=== PATIENT | male | born 1935 | race Caucasian/White ===

== ENCOUNTER 2017-03-08 16:52 | Inpatient (IN) | payer MEDICARE ==
[2017-03-08 17:58] LABS: BASO % 0.4 % (0.0-1.0); EOS # 0.1 10^3/uL (0.0-0.50); HEMATOCRIT 46.1 % (42.0-52.0); HEMOGLOBIN 14.4 g/dl (14.0-18.0); IMMATURE GRANULOCYTE % 0.1 % (0-0); LYMPH % 28.1 % (24.0-44.0); MEAN CORPUSCULAR HEMOGLOBIN 30.4 pg (27.0-33.0); MEAN CORPUSCULAR HGB CONC 31.2 g/dl (32.0-36.5); MEAN CORPUSCULAR VOLUME 97.3 fl (80.0-96.0); MONO # 1.1 10^3/uL (0.0-0.8); MONO % 15.2 % (0.0-5.0); NEUTROPHILS # 3.9 10^3/uL (1.8-7.7); NEUTROPHILS % 55.2 % (36.0-66.0); PLATELET COUNT, AUTOMATED 158 10^3/uL (150-450); RED BLOOD COUNT 4.74 10^6/uL (4.30-6.10); RED CELL DISTRIBUTION WIDTH 11.9 % (11.5-14.5); WHITE BLOOD COUNT 7.2 10^3/uL (4.0-10.0)
[2017-03-08 18:21] LABS: ANION GAP 6 MEQ/L (8-16); BLOOD UREA NITROGEN 31 MG/DL (7-18); CALCIUM LEVEL 8.4 MG/DL (8.8-10.2); CARBON DIOXIDE LEVEL 38 MEQ/L (21-32); CHLORIDE LEVEL 95 MEQ/L (98-107); GLOMERULAR FILTRATION RATE 51.7 (>35); GLUCOSE, FASTING 90 MG/DL (83-110); POTASSIUM SERUM 3.9 MEQ/L (3.5-5.1); SODIUM LEVEL 139 MEQ/L (136-145)
[2017-03-08 18:25] LABS: LACTIC ACID SEPSIS PROTOCOL 1.5 MMOL/L (0.4-2.0)
[2017-03-08 18:30] LABS: ALBUMIN 3.1 GM/DL (3.2-5.2); ALBUMIN/GLOBULIN RATIO 0.79 (1.00-1.93); ALKALINE PHOSPHATASE 130 U/L (45-117); ALT/SGPT 57 U/L (12-78); AST/SGOT 40 U/L (7-37); BILIRUBIN,DIRECT 0.2 MG/DL (0.0-0.2); BILIRUBIN,TOTAL 0.6 MG/DL (0.2-1.0); NT-PRO BNP 1137 PG/ML (<450)
[2017-03-08] MEDS: NS 500 ML IV (19:00)
[2017-03-08] MEDS: methylPREDNISolone INJ 125 MG/2 ML VIAL (J2930) IV ×2 (19:02→23:47)
[2017-03-08 19:45] LABS: ABG BASE EXCESS 11.3 (-2.0-2.0); ABG HCO3 37.6 MEQ/L (22.0-26.0); ABG O2 SATURATION 96.8 % (95.0-99.0); ABG PARTIAL PRESSURE CO2 55.7 mmHg (35.0-45.0); ABG PARTIAL PRESSURE O2 84.8 mmHg (75.0-100.0); ABG STANDARD HCO3 35.1 MEQ/L (22.0-26.0); ABG TOTAL CO2 39.3 MEQ/L (23.0-31.0); ABG pH (ARTERIAL) 7.447 UNITS (7.350-7.450)
[2017-03-08] MEDS: IPRATROPIUM 0.5MG/ALBUTEROL 2.5MG INH SOL UD 3ML (DUONEB)(J7620) NEB ×2 (19:45→23:41)
[2017-03-08] MEDS: CARVedilol 3.125 MG TAB PO (21:36)
[2017-03-08] MEDS: METOPROLOL 5 MG/5 ML VIAL IV (21:48)
[2017-03-08] MEDS ORDERED: IPRATROPIUM 0.5MG/ALBUTEROL 2.5MG INH SOL UD 3ML (DUONEB)(J7620) NEB (22:45)
[2017-03-08] MEDS ORDERED: ACETAMINOPHEN TAB 650MG DOSE (2X325MG) PO (22:45)
[2017-03-08] MEDS ORDERED: ONDANSETRON 4MG/2ML VIAL (J2405) IV (22:45)
[2017-03-08] MEDS: DOCUSATE SODIUM 100 MG CAP PO (23:00)
[2017-03-08] MEDS: HEPARIN SOD (PORCINE) 5000 UNITS/ML VIAL SC (23:00)
[2017-03-08 23:28] LABS: CK-MB VALUE MASS 3.2 NG/ML (0.0-3.6); CPK CREATINE PHOSPHOKINASE 60 U/L (39-308); MB/CK RELATIVE INDEX 5.33 (< OR =4); TROPONIN I 0.02 NG/ML (< 0.10)
[2017-03-08] MEDS: FORMOTEROL FUMARATE 20 MCG/2 ML INHALATION SOLUTION (PERFOROMIST) INH (23:41)
[2017-03-08] MEDS: VITAMIN D 1,000 INTERNATIONAL UNITS TABLET PO (23:51)
[2017-03-08] MEDS: ROSUVASTATIN 10 MG TAB (CRESTOR) PO (23:51)
[2017-03-08] MEDS: GABAPENTIN 300 MG CAP PO (23:51)
[2017-03-08] MEDS: LOSARTAN 25 MG TAB PO (23:51)
[2017-03-09] MEDS: AZITHROMYCIN INJ 500 MG, VIAL MATE ADAPTER 1 EACH in D5W 250 ML IV
[2017-03-09] MEDS: FORMOTEROL FUMARATE 20 MCG/2 ML INHALATION SOLUTION (PERFOROMIST) INH ×3 (00:14→23:14)
[2017-03-09] MEDS: HEPARIN SOD (PORCINE) 5000 UNITS/ML VIAL SC ×3 (05:16→21:44)
[2017-03-09] MEDS: methylPREDNISolone INJ 125 MG/2 ML VIAL (J2930) IV ×2 (05:16→18:05)
[2017-03-09] MEDS: LEVOTHYROXINE 150MCG TABLET (0.15MG) PO (05:16)
[2017-03-09 05:23] LABS: HEMATOCRIT 41.1 % (42.0-52.0); MEAN CORPUSCULAR HEMOGLOBIN 30.2 pg (27.0-33.0); MEAN CORPUSCULAR HGB CONC 31.6 g/dl (32.0-36.5); MEAN CORPUSCULAR VOLUME 95.6 fl (80.0-96.0); PLATELET COUNT, AUTOMATED 138 10^3/uL (150-450); WHITE BLOOD COUNT 4.1 10^3/uL (4.0-10.0)
[2017-03-09 05:52] LABS: ANION GAP 7 MEQ/L (8-16); BLOOD UREA NITROGEN 36 MG/DL (7-18); CALCIUM LEVEL 8.7 MG/DL (8.8-10.2); CARBON DIOXIDE LEVEL 36 MEQ/L (21-32); CHLORIDE LEVEL 100 MEQ/L (98-107); CPK CREATINE PHOSPHOKINASE 47 U/L (39-308); CREATININE FOR GFR 1.27 MG/DL (0.70-1.30); GLOMERULAR FILTRATION RATE 57.8 (>35); GLUCOSE, FASTING 218 MG/DL (83-110); MB/CK RELATIVE INDEX 6.38 (< OR =4); POTASSIUM SERUM 4.3 MEQ/L (3.5-5.1); SODIUM LEVEL 143 MEQ/L (136-145); TROPONIN I 0.02 NG/ML (< 0.10)
[2017-03-09] MEDS: IPRATROPIUM 0.5MG/ALBUTEROL 2.5MG INH SOL UD 3ML (DUONEB)(J7620) NEB ×4 (08:42→23:14)
[2017-03-09] MEDS: CARVedilol 12.5 MG TAB PO (09:00)
[2017-03-09] MEDS: GABAPENTIN 300 MG CAP PO ×2 (09:14→21:43)
[2017-03-09] MEDS: DOCUSATE SODIUM 100 MG CAP PO ×2 (09:14→21:00)
[2017-03-09] MEDS: OMEGA-3 1050MG CAPSULE PO (09:14)
[2017-03-09] MEDS: MULTIVITAMINS/MINERALS THERAP 1 TAB PO (09:14)
[2017-03-09] MEDS: ASPIRIN 81 MG ENTERIC TAB PO (09:14)
[2017-03-09] MEDS: VITAMIN D 1,000 INTERNATIONAL UNITS TABLET PO ×2 (09:19→21:43)
[2017-03-09] MEDS: POTASSIUM CHLORIDE 10 MEQ SR TABLET PO (09:19)
[2017-03-09] MEDS: VITAMIN E 400 INTERNATIONAL UNITS CAP PO (09:20)
[2017-03-09] MEDS: FUROSEMIDE 100 MG/10 ML VIAL (J1940) IV ×2 (09:20→18:06)
[2017-03-09] MEDS: SYMBICORT 160/4.5MCG INHALER 6GM INH ×2 (09:35→20:23)
[2017-03-09] MEDS: TIOTROPIUM INHALER/CAPSULE (SPIRIVA) INH (09:35)
[2017-03-09 15:22] LABS: CK-MB VALUE MASS 4.5 NG/ML (0.0-3.6); CPK CREATINE PHOSPHOKINASE 72 U/L (39-308); MB/CK RELATIVE INDEX 6.25 (< OR =4); TROPONIN I < 0.02 NG/ML (< 0.10)
[2017-03-09] MEDS: METOPROLOL TART 25 MG TABLET PO (16:39)
[2017-03-09] MEDS: ROSUVASTATIN 10 MG TAB (CRESTOR) PO (18:05)
[2017-03-09] MEDS: LOSARTAN 25 MG TAB PO (21:00)
[2017-03-10] MEDS: AZITHROMYCIN INJ 500 MG, VIAL MATE ADAPTER 1 EACH in D5W 250 ML IV ×2 (00:47→23:53)
[2017-03-10] MEDS: METOPROLOL TART 25 MG TABLET PO ×3 (05:56)
[2017-03-10] MEDS: HEPARIN SOD (PORCINE) 5000 UNITS/ML VIAL SC ×3 (05:56→21:10)
[2017-03-10] MEDS: LEVOTHYROXINE 150MCG TABLET (0.15MG) PO (05:56)
[2017-03-10] MEDS: methylPREDNISolone INJ 125 MG/2 ML VIAL (J2930) IV (05:56)
[2017-03-10 06:10] LABS: HEMATOCRIT 45.7 % (42.0-52.0); HEMOGLOBIN 14.4 g/dl (14.0-18.0); MEAN CORPUSCULAR HEMOGLOBIN 30.3 pg (27.0-33.0); MEAN CORPUSCULAR HGB CONC 31.5 g/dl (32.0-36.5); MEAN CORPUSCULAR VOLUME 96.2 fl (80.0-96.0); PLATELET COUNT, AUTOMATED 201 10^3/uL (150-450); RED BLOOD COUNT 4.75 10^6/uL (4.30-6.10); WHITE BLOOD COUNT 19.6 10^3/uL (4.0-10.0)
[2017-03-10 06:38] LABS: ANION GAP 7 MEQ/L (8-16); BLOOD UREA NITROGEN 44 MG/DL (7-18); CALCIUM LEVEL 9.6 MG/DL (8.8-10.2); CARBON DIOXIDE LEVEL 40 MEQ/L (21-32); CHLORIDE LEVEL 96 MEQ/L (98-107); CREATININE FOR GFR 1.59 MG/DL (0.70-1.30); GLOMERULAR FILTRATION RATE 44.6 (>35); GLUCOSE, FASTING 120 MG/DL (70-100); POTASSIUM SERUM 3.9 MEQ/L (3.5-5.1); SODIUM LEVEL 143 MEQ/L (136-145)
[2017-03-10] MEDS: TIOTROPIUM INHALER/CAPSULE (SPIRIVA) INH (07:05)
[2017-03-10] MEDS: IPRATROPIUM 0.5MG/ALBUTEROL 2.5MG INH SOL UD 3ML (DUONEB)(J7620) NEB ×3 (07:05→23:41)
[2017-03-10] MEDS: FORMOTEROL FUMARATE 20 MCG/2 ML INHALATION SOLUTION (PERFOROMIST) INH ×2 (07:05→23:40)
[2017-03-10] MEDS: SYMBICORT 160/4.5MCG INHALER 6GM INH ×2 (07:05→21:08)
[2017-03-10] MEDS: ASPIRIN 81 MG ENTERIC TAB PO (08:44)
[2017-03-10] MEDS: OMEGA-3 1050MG CAPSULE PO (08:44)
[2017-03-10] MEDS: GABAPENTIN 300 MG CAP PO ×2 (08:44→21:10)
[2017-03-10] MEDS: DOCUSATE SODIUM 100 MG CAP PO ×2 (08:44→21:10)
[2017-03-10] MEDS: FUROSEMIDE 100 MG/10 ML VIAL (J1940) IV (08:45)
[2017-03-10] MEDS: VITAMIN E 400 INTERNATIONAL UNITS CAP PO (08:45)
[2017-03-10] MEDS: POTASSIUM CHLORIDE 10 MEQ SR TABLET PO (08:45)
[2017-03-10] MEDS: MULTIVITAMINS/MINERALS THERAP 1 TAB PO (08:45)
[2017-03-10] MEDS: VITAMIN D 1,000 INTERNATIONAL UNITS TABLET PO ×2 (08:45→21:10)
[2017-03-10] MEDS: METOPROLOL TART 12.5 MG PER 1/2 TAB PO ×3 (12:13→23:53)
[2017-03-10] MEDS: methylPREDNISolone INJ 40 MG/1 ML VIAL (J2920) IV (17:09)
[2017-03-10] MEDS: ROSUVASTATIN 10 MG TAB (CRESTOR) PO (17:09)
[2017-03-11] MEDS ORDERED: SLF 3 ML SYR IV (00:30)
[2017-03-11] MEDS: LEVOTHYROXINE 150MCG TABLET (0.15MG) PO (05:16)
[2017-03-11] MEDS: METOPROLOL TART 12.5 MG PER 1/2 TAB PO ×3 (05:17→18:27)
[2017-03-11] MEDS: HEPARIN SOD (PORCINE) 5000 UNITS/ML VIAL SC ×3 (05:17→21:15)
[2017-03-11] MEDS: SLF 3 ML SYR IV ×3 (05:17→21:15)
[2017-03-11] MEDS: methylPREDNISolone INJ 40 MG/1 ML VIAL (J2920) IV (05:17)
[2017-03-11 07:07] LABS: HEMATOCRIT 48.2 % (42.0-52.0); HEMOGLOBIN 15.1 g/dl (14.0-18.0); MEAN CORPUSCULAR HEMOGLOBIN 30.6 pg (27.0-33.0); MEAN CORPUSCULAR HGB CONC 31.3 g/dl (32.0-36.5); MEAN CORPUSCULAR VOLUME 97.6 fl (80.0-96.0); PLATELET COUNT, AUTOMATED 225 10^3/uL (150-450); RED BLOOD COUNT 4.94 10^6/uL (4.30-6.10); RED CELL DISTRIBUTION WIDTH 12.2 % (11.5-14.5)
[2017-03-11 07:24] LABS: ANION GAP 8 MEQ/L (8-16); BLOOD UREA NITROGEN 52 MG/DL (7-18); CALCIUM LEVEL 9.1 MG/DL (8.8-10.2); CARBON DIOXIDE LEVEL 33 MEQ/L (21-32); CHLORIDE LEVEL 100 MEQ/L (98-107); CREATININE FOR GFR 1.76 MG/DL (0.70-1.30); GLOMERULAR FILTRATION RATE 39.7 (>35); GLUCOSE, FASTING 130 MG/DL (70-100); POTASSIUM SERUM 3.6 MEQ/L (3.5-5.1); SODIUM LEVEL 141 MEQ/L (136-145)
[2017-03-11] MEDS: IPRATROPIUM 0.5MG/ALBUTEROL 2.5MG INH SOL UD 3ML (DUONEB)(J7620) NEB ×2 (08:00→16:00)
[2017-03-11] MEDS: POTASSIUM CHLORIDE 10 MEQ SR TABLET PO ×2 (08:02→09:10)
[2017-03-11] MEDS: TIOTROPIUM INHALER/CAPSULE (SPIRIVA) INH (08:19)
[2017-03-11] MEDS: SYMBICORT 160/4.5MCG INHALER 6GM INH ×2 (08:19→21:50)
[2017-03-11] MEDS: FORMOTEROL FUMARATE 20 MCG/2 ML INHALATION SOLUTION (PERFOROMIST) INH ×2 (08:20→21:00)
[2017-03-11] MEDS: DOCUSATE SODIUM 100 MG CAP PO ×2 (09:10→21:15)
[2017-03-11] MEDS: OMEGA-3 1050MG CAPSULE PO (09:10)
[2017-03-11] MEDS: VITAMIN E 400 INTERNATIONAL UNITS CAP PO (09:10)
[2017-03-11] MEDS: ASPIRIN 81 MG ENTERIC TAB PO (09:10)
[2017-03-11] MEDS: VITAMIN D 1,000 INTERNATIONAL UNITS TABLET PO ×2 (09:10→21:15)
[2017-03-11] MEDS: MULTIVITAMINS/MINERALS THERAP 1 TAB PO (09:10)
[2017-03-11] MEDS: predniSONE 20 MG TAB PO (09:10)
[2017-03-11] MEDS: GABAPENTIN 300 MG CAP PO ×2 (09:10→21:15)
[2017-03-11 10:01] LABS: OSMOLALITY SERUM 323 MOSM/KG (280-301)
[2017-03-11 12:07] LABS: OSMOLALITY URINE 707 MOSM/KG (500-800)
[2017-03-11 12:54] LABS: SODIUM,RANDOM URINE < 10 MEQ/L
[2017-03-11] MEDS: SODIUM CHLORIDE 0.9% 1000 ML IV (14:50)
[2017-03-11 16:55] LABS: PARTIAL THROMBOPLASTIN TIME 26.7 SECONDS (26.8-37.9)
[2017-03-11 17:10] LABS: INR 1.08; PROTHROMBIN TIME 14.2 SECONDS (12.4-14.5)
[2017-03-11] MEDS: ROSUVASTATIN 10 MG TAB (CRESTOR) PO (18:27)
[2017-03-12] MEDS: IPRATROPIUM 0.5MG/ALBUTEROL 2.5MG INH SOL UD 3ML (DUONEB)(J7620) NEB ×4 (00:24→23:12)
[2017-03-12] MEDS: METOPROLOL TART 12.5 MG PER 1/2 TAB PO ×5 (00:44→23:17)
[2017-03-12] MEDS: SLF 3 ML SYR IV ×3 (06:00→20:25)
[2017-03-12 06:18] LABS: HEMATOCRIT 41.5 % (42.0-52.0); MEAN CORPUSCULAR HEMOGLOBIN 30.5 pg (27.0-33.0); MEAN CORPUSCULAR HGB CONC 31.3 g/dl (32.0-36.5); MEAN CORPUSCULAR VOLUME 97.4 fl (80.0-96.0); PLATELET COUNT, AUTOMATED 178 10^3/uL (150-450); RED BLOOD COUNT 4.26 10^6/uL (4.30-6.10); RED CELL DISTRIBUTION WIDTH 12.3 % (11.5-14.5); WHITE BLOOD COUNT 16.4 10^3/uL (4.0-10.0)
[2017-03-12] MEDS: LEVOTHYROXINE 150MCG TABLET (0.15MG) PO (06:26)
[2017-03-12] MEDS: HEPARIN SOD (PORCINE) 5000 UNITS/ML VIAL SC ×3 (06:27→20:24)
[2017-03-12 06:43] LABS: ANION GAP 2 MEQ/L (8-16); BLOOD UREA NITROGEN 46 MG/DL (7-18); CALCIUM LEVEL 8.8 MG/DL (8.8-10.2); CARBON DIOXIDE LEVEL 39 MEQ/L (21-32); CHLORIDE LEVEL 105 MEQ/L (98-107); CREATININE FOR GFR 1.51 MG/DL (0.70-1.30); GLOMERULAR FILTRATION RATE 47.3 (>35); GLUCOSE, FASTING 148 MG/DL (70-100); POTASSIUM SERUM 5.1 MEQ/L (3.5-5.1); SODIUM LEVEL 146 MEQ/L (136-145)
[2017-03-12] MEDS: TIOTROPIUM INHALER/CAPSULE (SPIRIVA) INH (08:27)
[2017-03-12] MEDS: SYMBICORT 160/4.5MCG INHALER 6GM INH ×2 (08:28→21:16)
[2017-03-12] MEDS: FORMOTEROL FUMARATE 20 MCG/2 ML INHALATION SOLUTION (PERFOROMIST) INH ×2 (08:29→21:00)
[2017-03-12] MEDS: POTASSIUM CHLORIDE 10 MEQ SR TABLET PO (09:00)
[2017-03-12] MEDS: GABAPENTIN 300 MG CAP PO ×2 (09:06→20:24)
[2017-03-12] MEDS: AZITHROMYCIN 250 MG TAB PO (09:06)
[2017-03-12] MEDS: VITAMIN D 1,000 INTERNATIONAL UNITS TABLET PO ×2 (09:06→20:24)
[2017-03-12] MEDS: MULTIVITAMINS/MINERALS THERAP 1 TAB PO (09:06)
[2017-03-12] MEDS: ASPIRIN 81 MG ENTERIC TAB PO (09:06)
[2017-03-12] MEDS: predniSONE 20 MG TAB PO (09:06)
[2017-03-12] MEDS: OMEGA-3 1050MG CAPSULE PO (09:08)
[2017-03-12] MEDS: DOCUSATE SODIUM 100 MG CAP PO ×2 (09:08→20:24)
[2017-03-12] MEDS: VITAMIN E 400 INTERNATIONAL UNITS CAP PO (09:08)
[2017-03-12] MEDS: D5W/0.45% SODIUM CHLORIDE 1,000 ML IV (10:47)
[2017-03-12] MEDS ORDERED: MIRALAX *UNIT DOSE* 17GM PACKET PO (16:30)
[2017-03-12] MEDS ORDERED: SODIUM CHLORIDE NASAL 0.65% SPRAY BTL (OCEAN) (16:30)
[2017-03-12] MEDS: DIGOXIN 0.125 MG TAB PO (17:01)
[2017-03-12] MEDS: ROSUVASTATIN 10 MG TAB (CRESTOR) PO (18:18)
[2017-03-12] MEDS: DIGOXIN 0.25 MG TAB PO (23:17)
[2017-03-13] MEDS: METOPROLOL TART 12.5 MG PER 1/2 TAB PO ×3 (05:06→17:44)
[2017-03-13] MEDS: LEVOTHYROXINE 150MCG TABLET (0.15MG) PO (05:06)
[2017-03-13] MEDS: DIGOXIN 0.125 MG TAB PO (05:06)
[2017-03-13] MEDS: HEPARIN SOD (PORCINE) 5000 UNITS/ML VIAL SC ×3 (05:07→21:19)
[2017-03-13] MEDS: SLF 3 ML SYR IV ×3 (05:07→21:20)
[2017-03-13 06:02] LABS: HEMATOCRIT 40.9 % (42.0-52.0); HEMOGLOBIN 12.6 g/dl (14.0-18.0); MEAN CORPUSCULAR HEMOGLOBIN 30.4 pg (27.0-33.0); MEAN CORPUSCULAR HGB CONC 30.8 g/dl (32.0-36.5); MEAN CORPUSCULAR VOLUME 98.8 fl (80.0-96.0); PLATELET COUNT, AUTOMATED 158 10^3/uL (150-450); RED BLOOD COUNT 4.14 10^6/uL (4.30-6.10); RED CELL DISTRIBUTION WIDTH 12.1 % (11.5-14.5); WHITE BLOOD COUNT 11.1 10^3/uL (4.0-10.0)
[2017-03-13 06:31] LABS: ANION GAP 1 MEQ/L (8-16); BLOOD UREA NITROGEN 38 MG/DL (7-18); CALCIUM LEVEL 8.7 MG/DL (8.8-10.2); CARBON DIOXIDE LEVEL 38 MEQ/L (21-32); CHLORIDE LEVEL 103 MEQ/L (98-107); CREATININE FOR GFR 1.37 MG/DL (0.70-1.30); DIGOXIN LEVEL 1.8 NG/ML (0.5-2.0); GLUCOSE, FASTING 138 MG/DL (70-100); POTASSIUM SERUM 4.5 MEQ/L (3.5-5.1); SODIUM LEVEL 142 MEQ/L (136-145)
[2017-03-13] MEDS: SYMBICORT 160/4.5MCG INHALER 6GM INH ×2 (07:16→21:58)
[2017-03-13] MEDS: IPRATROPIUM 0.5MG/ALBUTEROL 2.5MG INH SOL UD 3ML (DUONEB)(J7620) NEB ×3 (07:16→23:57)
[2017-03-13] MEDS: FORMOTEROL FUMARATE 20 MCG/2 ML INHALATION SOLUTION (PERFOROMIST) INH ×2 (07:16→20:08)
[2017-03-13] MEDS: TIOTROPIUM INHALER/CAPSULE (SPIRIVA) INH (07:16)
[2017-03-13] MEDS: DOCUSATE SODIUM 100 MG CAP PO ×2 (07:53→21:19)
[2017-03-13] MEDS: MULTIVITAMINS/MINERALS THERAP 1 TAB PO (07:53)
[2017-03-13] MEDS: predniSONE 20 MG TAB PO (07:53)
[2017-03-13] MEDS: OMEGA-3 1050MG CAPSULE PO (07:53)
[2017-03-13] MEDS: GABAPENTIN 300 MG CAP PO ×2 (07:53→21:19)
[2017-03-13] MEDS: AZITHROMYCIN 250 MG TAB PO (07:53)
[2017-03-13] MEDS: ASPIRIN 81 MG ENTERIC TAB PO (07:53)
[2017-03-13] MEDS: VITAMIN D 1,000 INTERNATIONAL UNITS TABLET PO ×2 (07:54→21:19)
[2017-03-13] MEDS: VITAMIN E 400 INTERNATIONAL UNITS CAP PO (07:54)
[2017-03-13] MEDS: DOXYCYCLINE HYCLATE 100 MG TAB PO ×2 (13:38→21:19)
[2017-03-13] MEDS: ROSUVASTATIN 10 MG TAB (CRESTOR) PO (17:44)
[2017-03-14] MEDS: METOPROLOL TART 12.5 MG PER 1/2 TAB PO ×3 (00:15→13:35)
[2017-03-14 05:58] LABS: HEMATOCRIT 43.1 % (42.0-52.0); HEMOGLOBIN 13.3 g/dl (14.0-18.0); MEAN CORPUSCULAR HGB CONC 30.9 g/dl (32.0-36.5); MEAN CORPUSCULAR VOLUME 97.1 fl (80.0-96.0); PLATELET COUNT, AUTOMATED 195 10^3/uL (150-450); RED BLOOD COUNT 4.44 10^6/uL (4.30-6.10); WHITE BLOOD COUNT 13.4 10^3/uL (4.0-10.0)
[2017-03-14] MEDS: SLF 3 ML SYR IV (06:00)
[2017-03-14 06:33] LABS: ANION GAP 4 MEQ/L (8-16); BLOOD UREA NITROGEN 34 MG/DL (7-18); CALCIUM LEVEL 9.2 MG/DL (8.8-10.2); CARBON DIOXIDE LEVEL 37 MEQ/L (21-32); CHLORIDE LEVEL 102 MEQ/L (98-107); CREATININE FOR GFR 1.32 MG/DL (0.70-1.30); DIGOXIN LEVEL 0.9 NG/ML (0.5-2.0); GLOMERULAR FILTRATION RATE 55.3 (>35); GLUCOSE, FASTING 105 MG/DL (70-100); POTASSIUM SERUM 3.9 MEQ/L (3.5-5.1); SODIUM LEVEL 143 MEQ/L (136-145)
[2017-03-14] MEDS: HEPARIN SOD (PORCINE) 5000 UNITS/ML VIAL SC (06:55)
[2017-03-14] MEDS: LEVOTHYROXINE 150MCG TABLET (0.15MG) PO (06:55)
[2017-03-14] MEDS: IPRATROPIUM 0.5MG/ALBUTEROL 2.5MG INH SOL UD 3ML (DUONEB)(J7620) NEB (07:49)
[2017-03-14] MEDS: SYMBICORT 160/4.5MCG INHALER 6GM INH (07:49)
[2017-03-14] MEDS: TIOTROPIUM INHALER/CAPSULE (SPIRIVA) INH (07:49)
[2017-03-14] MEDS ORDERED: DIGOXIN 0.25 MG TAB PO (09:00)
[2017-03-14] MEDS: predniSONE 20 MG TAB PO (10:03)
[2017-03-14] MEDS: VITAMIN E 400 INTERNATIONAL UNITS CAP PO (10:03)
[2017-03-14] MEDS: VITAMIN D 1,000 INTERNATIONAL UNITS TABLET PO (10:03)
[2017-03-14] MEDS: DOCUSATE SODIUM 100 MG CAP PO (10:03)
[2017-03-14] MEDS: MULTIVITAMINS/MINERALS THERAP 1 TAB PO (10:03)
[2017-03-14] MEDS: GABAPENTIN 300 MG CAP PO (10:04)
[2017-03-14] MEDS: DOXYCYCLINE HYCLATE 100 MG TAB PO (10:04)
[2017-03-14] MEDS: DIGOXIN 0.125 MG TAB PO (10:04)
[2017-03-14] MEDS: ASPIRIN 81 MG ENTERIC TAB PO (10:04)
[2017-03-14] MEDS: OMEGA-3 1050MG CAPSULE PO (10:04)
[2017-03-14] MEDS: FORMOTEROL FUMARATE 20 MCG/2 ML INHALATION SOLUTION (PERFOROMIST) INH (11:09)
== END 2017-03-14 13:42 | disposition home or self-care (01) | DRG 308 ==
LOC: M PCU 03-09 00:42 → M MSPAV 03-13 10:32 → M ED 16:52 → M ED INP 22:34
DX: I48.91 Unspecified atrial fibrillation (principal); I50.33 Acute on chronic diastolic (congestive) heart failure; J44.1 Chronic obstructive pulmonary disease with (acute) exacerbation; J96.11 Chronic respiratory failure with hypoxia; I13.0 Hypertensive heart and chronic kidney disease with heart failure and stage 1 through stage 4 chronic kidney disease, or unspecified chronic kidney disease; I25.10 Atherosclerotic heart disease of native coronary artery without angina pectoris; I25.2 Old myocardial infarction; E78.5 Hyperlipidemia, unspecified; N18.3 Chronic kidney disease, stage 3 (moderate); I27.20 Pulmonary hypertension, unspecified; Z99.81 Dependence on supplemental oxygen; Z95.5 Presence of coronary angioplasty implant and graft; Z87.891 Personal history of nicotine dependence; Z79.82 Long term (current) use of aspirin; Z79.899 Other long term (current) drug therapy

== ENCOUNTER 2018-04-15 16:09 | Emergency (ER) | payer MEDICARE ==
[~2018-04-15] VITALS: Ht 170.2 cm; Wt 76.8 kg
[~2018-04-15 16:09] MED LIST: ALBU17IN2 INH; ASPI81TA45 PO; CARV12.5 PO; CIPR-249 PO; CORE12.5 PO; CORE6.25 PO; CRES10TA32 PO; DIGO0.12 PO; DOXY100T PO; FISH100049 PO; FURO40TA2 PO; GABA-843 PO; GABA-845 PO; K-TA10TA PO; LASI20TA3 PO; LEVA750T7 PO; LEVO175T2 PO; LEVO25TA5 PO; LOSA25TA14 PO; METO1TAB33 PO; METO1TAB7 PO; MULTTAB50 PO; PERF20NE2 INH; PLAV1TAB2 PO; PRED10TA PO; PRED20TA PO; PRED20TAB PO; SPIR1CAP INH; SYMB16INH INH; SYNT150T PO; VIAG100T PO; VITA-122 PO; VITA200016 PO; VITA400C7 PO; VITMTA PO
--- NOTE | 2018-04-15 17:01 | REP ---
RIGHT KNEE, FIVE VIEWS: HISTORY: Knee pain. There is no acute fracture or dislocation. There is mild narrowing of the medial and minimal narrowing of the lateral knee joint space and patellofemoral joint space is normal in appearance. Chondrocalcinosis is present. IMPRESSION: Degenerative change as described above. Electronically Signed by Roger Castillo MD 04/15/2018 05:04 P
[2018-04-15] MEDS ORDERED: ACETAMINOPHEN 325 MG TAB PO ONE (20:30)
[2018-04-15 20:51] VITALS: BP 136/77
== END 2018-04-15 20:53 | disposition home or self-care (01) ==
LOC: M ED 16:09
DX: S83.91XA Sprain of unspecified site of right knee, initial encounter (principal); X50.1XXA Overexertion from prolonged static or awkward postures, initial encounter; Y92.39 Other specified sports and athletic area as the place of occurrence of the external cause; Y93.54 Activity, bowling; I11.0 Hypertensive heart disease with heart failure; I50.9 Heart failure, unspecified; I25.10 Atherosclerotic heart disease of native coronary artery without angina pectoris; I25.2 Old myocardial infarction; E78.00 Pure hypercholesterolemia, unspecified; J44.9 Chronic obstructive pulmonary disease, unspecified; E03.9 Hypothyroidism, unspecified; Z95.5 Presence of coronary angioplasty implant and graft; Z87.891 Personal history of nicotine dependence; Z79.899 Other long term (current) drug therapy; Z79.51 Long term (current) use of inhaled steroids; Z79.82 Long term (current) use of aspirin

== ENCOUNTER 2019-05-20 18:50 | Inpatient (IN) | payer MEDICARE ==
[~2019-05-20] VITALS: Ht 167.6 cm; Wt 72.0 kg
[~2019-05-20 18:50] MED LIST changes: +CRES10TA PO; -CRES10TA32 PO; -DIGO0.12 PO; +DIGO0.123 PO; +PRED-351 PO; -PRED10TA PO
[2019-05-20] MEDS ORDERED: COMBIVENT RESPIMAT 100-20MCG INHALER 4GM INH ONE (19:15)
[2019-05-20] MEDS ORDERED: methylPREDNISolone INJ 125 MG/2 ML VIAL (J2930) IV ONE (19:15)
[2019-05-20 19:21] LABS: BASO % 0.2 % (0.0-1.0); EOS % 0.1 % (0.0-3.0); HEMATOCRIT 47.2 % (42.0-52.0); HEMOGLOBIN 14.7 g/dl (13.5-17.5); LYMPH # 1.6 10^3/uL (1.5-5.0); LYMPH % 8.7 % (24.0-44.0); MEAN CORPUSCULAR HGB CONC 31.1 g/dl (32.0-36.5); MEAN CORPUSCULAR VOLUME 99.6 fl (80.0-96.0); MONO # 1.3 10^3/uL (0.0-0.8); MONO % 6.8 % (0.0-5.0); NEUTROPHILS # 15.4 10^3/uL (1.5-8.5); NEUTROPHILS % 83.8 % (36.0-66.0); PLATELET COUNT, AUTOMATED 224 10^3/uL (150-450); RED BLOOD COUNT 4.74 10^6/uL (4.30-6.10); WHITE BLOOD COUNT 18.3 10^3/uL (4.0-10.0)
[2019-05-20 19:32] LABS: INR 1.22; PROTHROMBIN TIME 15.2 SECONDS (11.8-14.0)
[2019-05-20 19:39] LABS: ABG BASE EXCESS 5.8 (-2.0-2.0); ABG HCO3 30.9 MEQ/L (22.0-26.0); ABG O2 SATURATION 99.1 % (95.0-99.0); ABG PARTIAL PRESSURE CO2 46.7 mmHg (35.0-45.0); ABG PARTIAL PRESSURE O2 145.4 mmHg (75.0-100.0); ABG STANDARD HCO3 29.7 MEQ/L (22.0-26.0); ABG TOTAL CO2 32.4 MEQ/L (23.0-31.0); ABG pH (ARTERIAL) 7.439 UNITS (7.350-7.450)
--- NOTE | 2019-05-20 19:53 | REP ---
CHEST, PORTABLE: AP portable view of the chest is performed and compared to prior study of 03/11/2017. There is diffuse interstitial fibrosis. There may be some superimposed patchy infiltrate in the left lung base. Focal somewhat rounded opacity in the right apex could represent focal infiltrate, fibroatelectasis or a mass. Approximate diameter is about 4 cm maximally. The heart is not enlarged. Mediastinal silhouette appears unremarkable. Multiple sternal wires and mediastinal clips are present. Electronically Signed by Mikey Shannon MD 05/20/2019 11:31 P
[2019-05-20 20:16] LABS: ALBUMIN 3.3 GM/DL (3.2-5.2); BILIRUBIN,DIRECT 0.5 MG/DL (0.0-0.2); CALCIUM LEVEL 9.4 MG/DL (8.8-10.2); CK-MB VALUE MASS 2.4 NG/ML (<3.6); CREATININE FOR GFR 1.32 MG/DL (0.70-1.30); DIGOXIN LEVEL 0.7 NG/ML (0.5-2.0); MB/CK RELATIVE INDEX 3.48 (< OR =4); POTASSIUM SERUM 4.4 MEQ/L (3.5-5.1); TOTAL PROTEIN 6.8 GM/DL (6.4-8.2); TROPONIN I 0.03 NG/ML (< 0.10)
[2019-05-20] MEDS ORDERED: cefTRIAXone SOD 1 GM in D5W MINI-BAG PLUS 50 ML IV ONE (20:30)
[2019-05-20] MEDS ORDERED: AZITHROMYCIN 250MG TABLET PO ONE (20:30)
[2019-05-20] MEDS ORDERED: ISOVUE-370 76% 100ML VIAL (Q9967) As Ordered ONE (21:00)
--- NOTE | 2019-05-20 21:12 | HPEPDOC ---
[facility] Medical History & Physical Date of Admission May 20, 2019 Date of Service: May 20, 2019 Other Provider Roger Monterroso MD Attending Physician: COY JOHANSEN MD History and Physical TIME OF SERVICE: 10:21 PM CHIEF COMPLAINT: Shortness of breath HISTORY OF PRESENT ILLNESS: This is an 83-year-old male who presents with complaints of shortness of breath for 2 days that is made with exertion which she attributes to his COPD acting up. He was also having a productive cough, and sharp left-sided 8 out of 10, nonradiating chest pain. He denies having fevers or chills, but admits to losing weight recently. Per Dr. Carcamo chest x-ray showed a right apical infiltrate versus mass, the EKG showed atrial fibrillation/flutter and RBBB with a heart rate of 116, while the respiratory panel was negative. CTA of the chest and COVID-19 are pending. He received solumedrol, duonebs, ceftriaxone and azithromycin. 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 HOME MEDICATIONS: Please see below. PHYSICAL EXAMINATION: Vital Signs Date Time Temp Pulse Resp B/P (MAP) Pulse Ox O2 Delivery O2 Flow Rate FiO2 05/20/19 18:51 98.3 64 24 129/65 (86) 78 Room Air 2.0 GEN: well nourished / well developed/ NAD INTEGUMENT: he doesn't have facial plethora HEENT:NCAT / lips are not cyanotic / he doesn't have pursed lip breathing / trachea midline / NC in place / maximal laryngeal height is <4cm / mucus membranes moist and pink CVS: RRR/ distant heart sounds / radial and dorsalis pedis pulses intact / he has trace extremity edema LUNGS: there is no nasal flaring / able to speak full sentences without stopping to take a breath / coughing / he is not using accessory muscles / despite deminished breath sounds inspiratory crackles are audible at the lung bases MSK/EXTREMITIES: he has finger nail clubbing NEURO: CN 2-12 are grossly intact / speech is not dysarthric PSYCH: alert and oriented to person place and time/ able to understand and follow all commands LABORATORY DATA: Prothrombin Time 15.2H, Prothromb Time International Ratio 1.22, Anion Gap 3L, Glomerular Filtration Rate 55.0, Lactic Acid Level 1.4, Calcium Level 9.4, Total Bilirubin 1.0, Direct Bilirubin 0.5H, Aspartate Amino Transf (AST/SGOT) 38H, Alanine Aminotransferase (ALT/SGPT) 42, Alkaline Phosphatase 198H, Total Creatine Kinase 69, Creatine Kinase MB 2.4, Creatine Kinase MB Relative Index 3.48, Troponin I 0.03, Total Protein 6.8, Albumin 3.3, Albumin/Globulin Ratio 0.94L, Lipase 53L, Digoxin Level 0.7 05/20/19 19:29: Blood Gas Bicarbonate Standard 29.7H, Arterial Blood pH 7.439, Arterial Blood Partial Pressure CO2 46.7H, Arterial Blood Partial Pressure O2 145.4H, Arterial Blood Total CO2 32.4H, Arterial Blood HCO3 30.9H, Arterial Blood Base Excess 5.8H, Arterial Blood Oxygen Saturation 99.1H IMAGING: Chest x-ray " There is diffuse interstitial fibrosis. There may be some superimposed patchy infiltrate in the left lung base. Focal somewhat rounded opacity in the right apex could represent focal infiltrate, fibroatelectasis or a mass. Approximate diameter is about 4 cm maximally. The heart is not enlarged. Mediastinal silhouette appears unremarkable. Multiple sternal wires and mediastinal clips are present." CTA chest "IMPRESSION: 1. Findings consistent with chronic interstitial lung disease with subpleural bullous or cystic changes. 2. Minimal infiltrate or consolidation in the lingula which may reflect overlying pneumonia. 3. Status post sternotomy with CABG and mild cardiomegaly. 4. Otherwise negative CTA chest. No pulmonary embolism is identified. " MICROBIOLOGY: 05/20/19 Coronavirus COVID-19 PCR (CECI), Received Pending 05/20/19 Respiratory Panel (PCR) - Final, Complete 05/20/19 Blood Culture, Received Pending 05/20/19 Blood Culture, Received Pending ASSESSMENT: Mr. Ku is an 83-year-old with a history of COPD, chronic oxygen-dependent respiratory failure, pulmonary hypertension, A. fib, chronic HTN, TIA, CAD/CABG, CKD 3, and hypothyroidism was admitted for dyspnea, likely due to acute COPD. PLAN: 1. Acute COPD likely 2/2 CAP with Chronic O2 Dependent Respiratory Failure O2 sats wnl with baseline of 2L of O2 Initial troponin, & ABG were unremarkable CTA chest was negative for PE but confirmed the presence of PNA PORT/PSI Score to predict risk of mortality in pt w CAP = 124 Points = class IV risk = hospitalization recommended Shorr Score to identify pts at risk for MRSA PNA = medium risk for MRSA DRIP Score to predict risk of drug resistant CAP and need for extended spectrum abx = 1 point = low = no need for broad spectrum abx Plan: admit to medical floor/ supplemental O2 / continuous pulse oximetry / aspiration precautions / COPD diet / Dunebs Q6H, Albuterol Q1HP, Prednisone + PPI / c/w ceftriaxone and azithromycin pending sputum cx, blood culture MRSA, Strep Pneumo, Legionella, COVID-19, procalcitonin, CRP, LDH and ferritin / Tessalon Pearls / Acetaminophen PRN for fever / hold home inhalers except Spiriva 2. Possible Sepsis 2/2 CAP SIRS criteria include HR >90 WBC >12 RR > 20 His lactic acid is within normal limits and clinically he doesn't appear toxic, but his BP was as low as 88/53 in the ER. He has nondiabetic hyperglycemia QSofa Score = 1 = not high risk He is full code Plan: telemetry /c/w abx / NS @60ml/H / f/u pancx / Acetaminophen PRN for fever / target MAP 65 to 70 / f/u Is and Os with target UOP of atleast 0.5 ml/kg/H / target serum glucose 140-180 while acutely ill 3. Rapid Atrial Fibrillation May be due to albuterol as his HR was 64 on arrival but increased to 116 He declined anticoagulation in the past Plan: telemetry / resume Digoxin 4. Mild Hypotension He has a hx of Chronic HTN Plan: hold tamsulosin bc his BP is low / the day time team may resume his Metoprolol in the morning and dc the IVF if his BP has improved 5. Moderate (group 3?) Pulm HTN. This may be the cause of his bilateral lower extremity edema - Plan: treat COPD / resume furosemide in the morning 6. hx of TIA / CAD/CABG - Plan: ASA & rosuvastatin 7. Hypothyroidism - Plan: levothyroxine 8. CKD 3 - Plan: f/u BMP & avoid NSAIDs or other nephrotoxins DVT PROPHYLAXIS: lovenox DISPOSITION: likely home after more than 2 midnight's stay Home Medications Scheduled Albuterol Sulfate (Proventil Hfa) 6.7 Gm Hfa.aer.ad, 2 PUFF INH QID for wheezing Aspirin (Aspirin EC) 81 Mg Tablet.dr, 81 MG PO DAILY Budesonide/Formoterol (Symbicort 160-4.5 Mcg Inhaler) 60 Puff/Inhaler Aers, 2 PUFF INH BID Digoxin (Digoxin) 125 Mcg Tablet, 125 MCG PO DAILY Ergocalciferol (Vitamin D2) (Vitamin D2) 2,000 Unit Tablet, 2,000 UNIT PO DAILY Formoterol Fumarate (Perforomist) 20 Mcg/2 Ml Neb, 1 INH INH BID Furosemide (Furosemide) 20 Mg Tablet, 20 MG PO DAILY Gabapentin (Gabapentin) 300 Mg Cap, 300 MG PO DAILY PATIENT STATES HE ONLY TAKES ONE IN THE MORNING. RX IS FOR BID Levothyroxine Sodium (Levothyroxine Sodium) 125 Mcg Tablet, 125 MCG PO DAILY Metoprolol Succinate (Metoprolol Succinate) 50 Mg Tab.er.24h, 50 MG PO QHS Metoprolol Succinate (Metoprolol Succinate) 100 Mg Tab.er.24h, 100 MG PO DAILY Multivitamins (Thera M Plus Tablet) 1 Tab Tab, 1 TAB PO DAILY [place]-3 Fatty Acids/Fish Oil (Fish Oil 1,000 mg Capsule) 1 Each Capsule, 1,000 MG PO DAILY Potassium Chloride (K-Tab ER) 10 Meq Tab, 20 MEQ PO DAILY Rosuvastatin Calcium (Crestor) 10 Mg Tab, 40 MG PO DAILY Tamsulosin HCl (Flomax) 0.4 Mg Capsule, 0.4 MG PO DAILY Tiotropium [place] (Spiriva) 18 Mcg Cap, 1 PUFF INH DAILY Vitamin E (Vitamin E) 400 Unit Capsule, 400 UNIT PO DAILY Allergies Coded Allergies: No Known Allergies (Unverified , 04/23/14) A-FIB/CHADSVASC A-FIB History Current/History of A-Fib/PAF?: Yes Current PO Anticoag Therapy: No Treatment Reason Anticoagulant not given: Patient refusal COY JOHANSEN MD May 20, 2019 21:12
[2019-05-20] MEDS ORDERED: ACETAMINOPHEN TAB 650MG DOSE (2X325MG) PO PRN (21:15)
[2019-05-20] MEDS ORDERED: ALBUTEROL 90 MCG/ACT 8GM HFA INHALER INH PRN (21:15)
[2019-05-20] MEDS ORDERED: MAALOX 30 ML SUSP *UDC PO PRN (21:15)
[2019-05-20 21:50] LABS: MAGNESIUM LEVEL 1.9 MG/DL (1.8-2.4); THYROID STIMULATING HORMONE 0.244 uIU/ML (0.358-3.740)
--- NOTE | 2019-05-20 22:01 | REPVR ---
PROCEDURE INFORMATION: Exam: CT Angiography Chest With Contrast Exam date and time: 05/20/2019 9:36 PM Age: 83 years old Clinical indication: Shortness of breath; Chest pain; Additional info: Chest pain, SOB TECHNIQUE: Imaging protocol: Computed tomographic angiography of the chest with intravenous contrast. 3D rendering: MIP and/or 3D reconstructed images were created by the technologist. Radiation optimization: All CT scans at this facility use at least one of these dose optimization techniques: automated exposure control; mA and/or kV adjustment per patient size (includes targeted exams where dose is matched to clinical indication); or iterative reconstruction. Contrast material: ISOVUE 370; Contrast volume: 75 ml; Contrast route: IV; COMPARISON: GA PORTABLE CHEST X-RAY 05/20/2019 7:12 PM FINDINGS: Pulmonary arteries: The main pulmonary artery measures 23 mm. No pulmonary embolism is identified. Aorta: The ascending thoracic aorta measures 30 mm. Lungs: Diffuse interstitial coarsening, greatest in subpleural regions with mild subpleural bullous or cystic changes which are greatest in the upper lobes. There is minimal infiltrate or consolidation in the lingula. Pleural space: Unremarkable. No pneumothorax. No pleural effusion. Heart: Status post sternotomy and CABG. The left atrium measures 5.1 cm in its AP dimension. Lymph nodes: Unremarkable. No enlarged lymph nodes. Bones/joints: Unremarkable. No acute fracture. Soft tissues: Unremarkable. IMPRESSION: 1. Findings consistent with chronic interstitial lung disease with subpleural bullous or cystic changes. 2. Minimal infiltrate or consolidation in the lingula which may reflect overlying pneumonia. 3. Status post sternotomy with CABG and mild cardiomegaly. 4. Otherwise negative CTA chest. No pulmonary embolism is identified. Electronically signed by: Ulises Ferrara On 05/20/2019 22:00:43 PM
[2019-05-20] MEDS ORDERED: METO1TAB33 PO (22:23)
[2019-05-20] MEDS ORDERED: ASPI81TA26 PO (22:23)
[2019-05-20] MEDS ORDERED: FISH1000 PO (22:23)
[2019-05-20] MEDS ORDERED: DIGO0.123 PO (22:23)
[2019-05-20] MEDS ORDERED: METO1TAB7 PO (22:23)
[2019-05-20] MEDS ORDERED: ASPI81CH33 PO (22:23)
[2019-05-20] MEDS ORDERED: VITA200028 PO (22:23)
[2019-05-20] MEDS ORDERED: VITA400C53 PO (22:23)
[2019-05-20] MEDS ORDERED: PROV108A INH (22:25)
[2019-05-20] MEDS ORDERED: LEVO125T4 PO (22:34)
[2019-05-20] MEDS ORDERED: FURO20TA2 PO (22:34)
[2019-05-20] MEDS ORDERED: FLOM0.4C39 PO (22:34)
[2019-05-20 23:08] VITALS: BP 108/68
[2019-05-20] MEDS: COMBIVENT RESPIMAT 100-20MCG INHALER 4GM INH SCH (23:50)
[2019-05-21 01:51] LABS: C REACTIVE PROTEIN QUANTITATIV 7.42 MG/DL (0.00-0.30); FREE T3 2.1 PG/ML (2.2-4.0); FREE T4 1.3 NG/DL (0.76-1.46); TROPONIN I 0.03 NG/ML (< 0.10)
[2019-05-21] MEDS ORDERED: BENZONATATE 100 MG CAP PO PRN (02:15)
[2019-05-21 04:00] VITALS: BP 102/58
[2019-05-21] MEDS: NS 1,000 ML IV SCH ×2 (04:16→20:41)
[2019-05-21 05:33] LABS: HEMATOCRIT 47.4 % (42.0-52.0); HEMOGLOBIN 14.4 g/dl (13.5-17.5); MEAN CORPUSCULAR HEMOGLOBIN 31.2 pg (27.0-33.0); MEAN CORPUSCULAR HGB CONC 30.4 g/dl (32.0-36.5); MEAN CORPUSCULAR VOLUME 102.8 fl (80.0-96.0); PLATELET COUNT, AUTOMATED 189 10^3/uL (150-450); RED BLOOD COUNT 4.61 10^6/uL (4.30-6.10); WHITE BLOOD COUNT 10.3 10^3/uL (4.0-10.0)
[2019-05-21 06:06] LABS: BLOOD UREA NITROGEN 27 MG/DL (7-18); CALCIUM LEVEL 9.2 MG/DL (8.8-10.2); CARBON DIOXIDE LEVEL 35 MEQ/L (21-32); CHLORIDE LEVEL 102 MEQ/L (98-107); CREATININE FOR GFR 1.26 MG/DL (0.70-1.30); GLUCOSE, FASTING 243 MG/DL (70-100); POTASSIUM SERUM 4.2 MEQ/L (3.5-5.1); SODIUM LEVEL 140 MEQ/L (136-145); TROPONIN I < 0.02 NG/ML (< 0.10)
[2019-05-21] MEDS: LEVOTHYROXINE 125MCG TABLET (0.125MG) PO SCH (06:36)
[2019-05-21] MEDS: COMBIVENT RESPIMAT 100-20MCG INHALER 4GM INH SCH ×3 (07:48→20:36)
[2019-05-21] MEDS: TIOTROPIUM INHALER/CAPSULE (SPIRIVA) INH SCH (07:48)
--- NOTE | 2019-05-21 07:50 | ECGEPIP ---
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
[2019-05-21 08:00] VITALS: BP 110/52
[2019-05-21] MEDS: PANTOPRAZOLE 40MG TAB (PROTONIX) PO SCH (08:40)
[2019-05-21] MEDS: ASPIRIN 81 MG ENTERIC TAB PO SCH (08:40)
[2019-05-21] MEDS: TAMSULOSIN 0.4 MG CAP PO SCH (08:40)
[2019-05-21] MEDS: predniSONE 20 MG TAB PO SCH (08:41)
[2019-05-21] MEDS: POTASSIUM CHLORIDE 10 MEQ SR TABLET PO SCH (08:41)
[2019-05-21] MEDS: FUROSEMIDE 20 MG TAB PO SCH (08:41)
[2019-05-21] MEDS: ROSUVASTATIN 10 MG TAB (CRESTOR) PO SCH (08:41)
[2019-05-21] MEDS: GABAPENTIN 300 MG CAP PO SCH (08:41)
[2019-05-21] MEDS: DIGOXIN 0.125 MG TAB PO SCH ×2 (08:42→17:05)
[2019-05-21] MEDS: ENOXAPARIN 40 MG/0.4 ML SYRINGE (J1650) SC SCH (08:42)
[2019-05-21] MEDS: cefTRIAXone SOD 2 GM in D5W MINI-BAG PLUS 50 ML IV SCH (08:42)
--- NOTE | 2019-05-21 09:17 | IPNPDOC ---
Subjective Date Seen The patient was seen on 05/21/19. Subjective Chief Complaint/HPI seen and examined at bedside, doing well and currently on NC 2L, near baseline. General: Reports: Normal Appetite; Denies: Chills, Night Sweats, Fatigue, Malaise Constitutional: Denies: Chills, Fever, Night Sweats Eyes: Denies: Pain, Vision change ENT: Denies: Head Aches, Ear Pain, Dysphagia Skin: Denies: Rash, Lesions, Breakdown Pulmonary: Reports: Dyspnea, Cough Cardiovascular: Denies: Chest Pain, Palpitations, Orthopnea, Paroxysmal Noc. Dyspnea, Lt Headedness Gastrointestinal: Denies: Nausea, Vomiting, Abdominal Pain, Diarrhea, Constipation Genitourinary: Denies: Dysuria, Frequency, Incontinence, Retention Hematologic: Denies: Bruising, Bleeding Excessively Musculoskeletal: Denies: Neck Pain, Back Pain, Joint Pain, Muscle Pain, Spasms Neurological: Denies: Weakness, Numbness, Change in speech, Confusion Psych: Reports: Mood Normal; Denies: Depression, Memory Issues Objective Physical Examination General Exam: Positive: Alert, No Acute Distress Eye Exam: Positive: PERRLA, Conjunctiva & lids normal, EOMI; Negative: Sclera icteric ENT Exam: Positive: Atraumatic, Mucous membr. moist/pink, Pharynx Normal Neck Exam: Positive: Supple; Negative: JVD, thyromegaly Chest Exam: Positive: Diminished Heart Exam: Positive: Rate Normal, Regular Rhythm, Normal S1, Normal S2; Negative: Murmurs, Rubs Telemetry: Positive: Atrial fibrillation Abdomen Exam: Positive: Normal bowel sounds, Soft; Negative: Tenderness, Hepatospenomegaly Male Exam: Positive: Normal Genital Exam Extremity Exam: Positive: Normal pulses; Negative: Clubbing, Cyanosis, Edema Skin Exam: Positive: Nl turgor and temperature; Negative: Rash, Breakdown Neuro Exam: Positive: Normal Gait, Normal Speech, Cranial Nerves 3-12 NL, Reflexes 2+ Psych Exam: Positive: Mental status NL, Mood NL, Oriented x 3 Assessment /Plan Assessment 1. Acute COPD likely 2/2 CAP with Chronic O2 Dependent Respiratory Failure O2 sats wnl with baseline of 2L of O2 Initial troponin, & ABG were unremarkable CTA chest was negative for PE but confirmed the presence of PNA PORT/PSI Score to predict risk of mortality in pt w CAP = 124 Points = class IV risk = hospitalization recommended Shorr Score to identify pts at risk for MRSA PNA = medium risk for MRSA DRIP Score to predict risk of drug resistant CAP and need for extended spectrum abx = 1 point = low = no need for broad spectrum abx Plan: admit to medical floor/ supplemental O2 / continuous pulse oximetry / aspiration precautions / COPD diet / Dunebs Q6H, Albuterol Q1HP, Prednisone + PPI / c/w ceftriaxone and azithromycin pending sputum cx, blood culture MRSA, Strep Pneumo, Legionella, COVID-19, procalcitonin, CRP, LDH and ferritin / Tessalon Pearls / Acetaminophen PRN for fever / hold home inhalers except Spiriva. 05/20 - continue management as above. 05/21 - on NC 2L (baseline), on steroids/duonebs. 2. Possible Sepsis 2/2 CAP SIRS criteria include HR >90 WBC >12 RR > 20 His lactic acid is within normal limits and clinically he doesn't appear toxic, but his BP was as low as 88/53 in the ER. He has nondiabetic hyperglycemia QSofa Score = 1 = not high risk He is full code Plan: telemetry /c/w abx / NS @60ml/H / f/u pancx / Acetaminophen PRN for fever / target MAP 65 to 70 / f/u Is and Os with target UOP of atleast 0.5 ml/kg/H / target serum glucose 140-180 while acutely ill 3. Rapid Atrial Fibrillation May be due to albuterol as his HR was 64 on arrival but increased to 116 He declined anticoagulation in the past Plan: telemetry / resume Digoxin 05/21: still tachycardic, will tx with IV cardizem, monitor. 4. Mild Hypotension He has a hx of Chronic HTN Plan: hold tamsulosin bc his BP is low / the day time team may resume his Metoprolol in the morning and dc the IVF if his BP has improved 5. Moderate (group 3?) Pulm HTN. This may be the cause of his bilateral lower extremity edema - Plan: treat COPD / resume furosemide in the morning 6. hx of TIA / CAD/CABG - Plan: ASA & rosuvastatin 7. Hypothyroidism - Plan: levothyroxine 8. CKD 3 - Plan: f/u BMP & avoid NSAIDs or other nephrotoxins DVT PROPHYLAXIS: lovenox DISPOSITION: likely home after more than 2 midnight's stay Plan/VTE VTE Prophylaxis Ordered?: Yes VS, I&O, 24H, Fishbone Vital Signs/I&O Vital Signs Date Time Temp Pulse Resp B/P (MAP) Pulse Ox O2 Delivery O2 Flow Rate FiO2 05/21/19 08:42 80 05/21/19 08:00 95.0 18 110/52 (71) Nasal Cannula 2.0 05/21/19 04:00 96 I&O- Last 24 Hours up to 6 AM 05/21/19 06:00 Intake Total 350 ml Balance 350 ml Laboratory Data 24H LABS Laboratory Tests 2 05/20/19 19:11: Immature Granulocyte % (Auto) 0.4, Neutrophils (%) (Auto) 83.8H, Lymphocytes (%) (Auto) 8.7L, Monocytes (%) (Auto) 6.8H, Eosinophils (%) (Auto) 0.1, Basophils (%) (Auto) 0.2, Neutrophils # (Auto) 15.4H, Lymphocytes # (Auto) 1.6, Monocytes # (Auto) 1.3H, Eosinophils # (Auto) 0.0, Basophils # (Auto) 0.0, Nucleated Red Blood Cells % (auto) 0.0, Prothrombin Time 15.2H, Prothromb Time International Ratio 1.22, Anion Gap 3L, Glomerular Filtration Rate 55.0, Lactic Acid Level 1.4, Calcium Level 9.4, Magnesium Level 1.9, Total Bilirubin 1.0, Direct Bilirubin 0.5H, Aspartate Amino Transf (AST/SGOT) 38H, Alanine Aminotransferase (ALT/SGPT) 42, Alkaline Phosphatase 198H, Total Creatine Kinase 69, Creatine Kinase MB 2.4, Creatine Kinase MB Relative Index 3.48, Troponin I 0.03, Total Protein 6.8, Albumin 3.3, Albumin/Globulin Ratio 0.94L, Lipase 53L, Thyroid Stimulating Hormone (TSH) 0.244L, Digoxin Level 0.7 05/20/19 19:29: Blood Gas Bicarbonate Standard 29.7H, Arterial Blood pH 7.439, Arterial Blood Partial Pressure CO2 46.7H, Arterial Blood Partial Pressure O2 145.4H, Arterial Blood Total CO2 32.4H, Arterial Blood HCO3 30.9H, Arterial Blood Base Excess 5.8H, Arterial Blood Oxygen Saturation 99.1H 05/21/19 01:02: Troponin I 0.03, Ferritin 81, Lactate Dehydrogenase 199, C-Reactive Protein, Quantitative 7.42H, Free Thyroxine 1.30, Free Triiodothyronine 2.1L 05/21/19 04:30: 05/21/19 04:53: Nucleated Red Blood Cells % (auto) 0.0, Anion Gap 3L, Glomerular Filtration Rate 58.0, Calcium Level 9.2, Troponin I < 0.02# CBC/BMP Laboratory Tests 05/20/19 19:11 05/21/19 04:53 Microbiology Microbiology 05/20/19 Coronavirus COVID-19 PCR (CECI), Received Pending 05/20/19 Respiratory Panel (PCR) - Final, Complete 05/20/19 Blood Culture, Received Pending 05/20/19 Blood Culture, Received Pending JAMES SCRUGGS MD May 21, 2019 09:17
[2019-05-21 12:00] VITALS: BP 102/62
[2019-05-21 13:32] VITALS: BP 100/48
[2019-05-21 15:56] VITALS: BP 112/64
[2019-05-21] MEDS ORDERED: METOPROLOL SUCC *XL* 12.5MG PER 1/2 TAB (TopROL *XL*) PO ONE (19:30)
[2019-05-21 20:00] VITALS: BP 118/68
[2019-05-21] MEDS: AZITHROMYCIN INJ 500 MG, VIAL MATE ADAPTER 1 EACH in D5W 250 ML IV SCH (20:42)
[2019-05-22] VITALS (7 sets, daily range): BP systolic 112–156; BP diastolic 72–90
[2019-05-22] MEDS: COMBIVENT RESPIMAT 100-20MCG INHALER 4GM INH SCH ×4 (00:44→19:36)
[2019-05-22] MEDS: LEVOTHYROXINE 125MCG TABLET (0.125MG) PO SCH (05:06)
[2019-05-22 05:53] LABS: HEMATOCRIT 43.2 % (42.0-52.0); HEMOGLOBIN 13.6 g/dl (13.5-17.5); MEAN CORPUSCULAR HEMOGLOBIN 31.8 pg (27.0-33.0); MEAN CORPUSCULAR HGB CONC 31.5 g/dl (32.0-36.5); MEAN CORPUSCULAR VOLUME 100.9 fl (80.0-96.0); PLATELET COUNT, AUTOMATED 202 10^3/uL (150-450); RED BLOOD COUNT 4.28 10^6/uL (4.30-6.10); WHITE BLOOD COUNT 18.4 10^3/uL (4.0-10.0)
[2019-05-22 06:16] LABS: CALCIUM LEVEL 9.2 MG/DL (8.8-10.2); CREATININE FOR GFR 1.24 MG/DL (0.70-1.30); GLOMERULAR FILTRATION RATE 59.1 (>35); POTASSIUM SERUM 4.7 MEQ/L (3.5-5.1)
[2019-05-22] MEDS: TIOTROPIUM INHALER/CAPSULE (SPIRIVA) INH SCH (07:35)
--- NOTE | 2019-05-22 09:14 | ECGEPIP ---
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
[2019-05-22] MEDS: ENOXAPARIN 40 MG/0.4 ML SYRINGE (J1650) SC SCH (09:18)
[2019-05-22] MEDS: PANTOPRAZOLE 40MG TAB (PROTONIX) PO SCH (09:18)
[2019-05-22] MEDS: cefTRIAXone SOD 2 GM in D5W MINI-BAG PLUS 50 ML IV SCH (09:18)
[2019-05-22] MEDS: TAMSULOSIN 0.4 MG CAP PO SCH (09:19)
[2019-05-22] MEDS: METOPROLOL SUCC (TopROL XL) 100MG *XL* TAB PO SCH (09:19)
[2019-05-22] MEDS: predniSONE 20 MG TAB PO SCH (09:19)
[2019-05-22] MEDS: FUROSEMIDE 20 MG TAB PO SCH (09:20)
[2019-05-22] MEDS: DIGOXIN 0.125 MG TAB PO SCH (09:20)
[2019-05-22] MEDS: ASPIRIN 81 MG ENTERIC TAB PO SCH (09:20)
[2019-05-22] MEDS: POTASSIUM CHLORIDE 10 MEQ SR TABLET PO SCH (09:20)
[2019-05-22] MEDS: GABAPENTIN 300 MG CAP PO SCH (09:20)
[2019-05-22] MEDS: ROSUVASTATIN 10 MG TAB (CRESTOR) PO SCH (09:21)
[2019-05-22] MEDS ORDERED: METOPROLOL SUCC *XL* 25MG TAB (TopROL *XL*) PO ONE (18:00)
[2019-05-22] MEDS: AZITHROMYCIN INJ 500 MG, VIAL MATE ADAPTER 1 EACH in D5W 250 ML IV SCH (22:07)
[2019-05-23] VITALS: BP 127/79
[2019-05-23 04:00] VITALS: BP 120/72
[2019-05-23] MEDS: COMBIVENT RESPIMAT 100-20MCG INHALER 4GM INH SCH ×2 (04:23)
[2019-05-23 05:30] LABS: BASO % 0.2 % (0.0-1.0); EOS % 0.2 % (0.0-3.0); HEMATOCRIT 41.3 % (42.0-52.0); HEMOGLOBIN 12.7 g/dl (13.5-17.5); LYMPH # 1.5 10^3/uL (1.5-5.0); LYMPH % 12.4 % (24.0-44.0); MEAN CORPUSCULAR HEMOGLOBIN 30.8 pg (27.0-33.0); MEAN CORPUSCULAR HGB CONC 30.8 g/dl (32.0-36.5); MONO # 1.2 10^3/uL (0.0-0.8); MONO % 9.4 % (0.0-5.0); NEUTROPHILS # 9.6 10^3/uL (1.5-8.5); NEUTROPHILS % 77.4 % (36.0-66.0); PLATELET COUNT, AUTOMATED 172 10^3/uL (150-450); RED BLOOD COUNT 4.13 10^6/uL (4.30-6.10); WHITE BLOOD COUNT 12.4 10^3/uL (4.0-10.0)
[2019-05-23 05:52] LABS: BLOOD UREA NITROGEN 33 MG/DL (7-18); CALCIUM LEVEL 8.8 MG/DL (8.8-10.2); CARBON DIOXIDE LEVEL 35 MEQ/L (21-32); CHLORIDE LEVEL 106 MEQ/L (98-107); GLOMERULAR FILTRATION RATE > 60.0 (>35); GLUCOSE, FASTING 119 MG/DL (70-100); POTASSIUM SERUM 4.5 MEQ/L (3.5-5.1); SODIUM LEVEL 141 MEQ/L (136-145)
[2019-05-23] MEDS: LEVOTHYROXINE 125MCG TABLET (0.125MG) PO SCH (05:57)
[2019-05-23] MEDS: TIOTROPIUM INHALER/CAPSULE (SPIRIVA) INH SCH (07:40)
[2019-05-23 08:00] VITALS: BP 131/80
[2019-05-23] MEDS: ROSUVASTATIN 10 MG TAB (CRESTOR) PO SCH (08:52)
[2019-05-23] MEDS: predniSONE 20 MG TAB PO SCH (08:54)
[2019-05-23] MEDS: ASPIRIN 81 MG ENTERIC TAB PO SCH (08:54)
[2019-05-23] MEDS: DIGOXIN 0.125 MG TAB PO SCH (08:56)
[2019-05-23] MEDS: POTASSIUM CHLORIDE 10 MEQ SR TABLET PO SCH (08:59)
[2019-05-23] MEDS: GABAPENTIN 300 MG CAP PO SCH (09:00)
[2019-05-23] MEDS: PANTOPRAZOLE 40MG TAB (PROTONIX) PO SCH (09:00)
[2019-05-23 09:04] VITALS: BP 131/77
[2019-05-23] MEDS: METOPROLOL SUCC (TopROL XL) 100MG *XL* TAB PO SCH (09:04)
[2019-05-23] MEDS: TAMSULOSIN 0.4 MG CAP PO SCH (09:14)
[2019-05-23] MEDS: FUROSEMIDE 20 MG TAB PO SCH (09:20)
[2019-05-23] MEDS: cefTRIAXone SOD 2 GM in D5W MINI-BAG PLUS 50 ML IV SCH (09:21)
[2019-05-23] MEDS: ENOXAPARIN 40 MG/0.4 ML SYRINGE (J1650) SC SCH (09:24)
[2019-05-23] MEDS ORDERED: COMBIVENT RESPIMAT 100-20MCG INHALER 4GM INH SCH (10:12)
[2019-05-23 12:00] VITALS: BP 121/86
[2019-05-23] MEDS ORDERED: PRED20TA PO (13:59)
[2019-05-23] MEDS ORDERED: AZIT500T5 PO (13:59)
[2019-05-23 14:06] LABS: BODY FLUID CULTURE Not indicated. (.); LEGIONELLA ANTIGEN URINE Negative (Negative); ORGANISM ID Not indicated. (.); SPECIMEN SOURCE Urine (.); URINE STREP PNEUMONIAE ANTIGEN Negative (Negative)
--- NOTE | 2019-05-23 14:06 | DS.PDOC ---
Discharge Summary General Date of Admission May 20, 2019 at 21:05 Date of Discharge 05/23/2019 Discharge Summary PROCEDURES PERFORMED DURING STAY: [None]. ADMITTING DIAGNOSES: 1. acute hypoxic respiratory failure secondary to acute COPD exacerbation/PNA DISCHARGE DIAGNOSES: 1. acute hypoxic respiratory failure secondary to acute COPD exacerbation/PNA COMPLICATIONS/CHIEF COMPLAINT: A Fib W/Rvr,Copd Exacerbation,Dyspnea. HISTORY OF PRESENT ILLNESS: Please refer to admission H&P for detailed HPI. HOSPITAL COURSE: Patient was admitted to the hospital and treated for the following conditions: 1. Acute COPD likely 2/2 CAP with Chronic O2 Dependent Respiratory Failure O2 sats wnl with baseline of 2L of O2 Initial troponin, & ABG were unremarkable CTA chest was negative for PE but confirmed the presence of PNA PORT/PSI Score to predict risk of mortality in pt w CAP = 124 Points = class IV risk = hospitalization recommended Shorr Score to identify pts at risk for MRSA PNA = medium risk for MRSA DRIP Score to predict risk of drug resistant CAP and need for extended spectrum abx = 1 point = low = no need for broad spectrum abx Plan: admit to medical floor/ supplemental O2 / continuous pulse oximetry / aspiration precautions / COPD diet / Dunebs Q6H, Albuterol Q1HP, Prednisone + PPI / c/w ceftriaxone and azithromycin pending sputum cx, blood culture MRSA, Strep Pneumo, Legionella, COVID-19, procalcitonin, CRP, LDH and ferritin / Tessalon Pearls / Acetaminophen PRN for fever / hold home inhalers except Spiriva. / - continue management as above. /5 - on NC 2L (baseline), on steroids/duonebs. /6 - patient appears near baseline in regards to his oxygen needs, cleared for discharge home. Will continue with short prednisone taper and 4 days of PO azithromycin to complete 7 day course. DISCHARGE MEDICATIONS: Please see below. ALLERGIES: Please see below. PHYSICAL EXAMINATION ON DISCHARGE: VITAL SIGNS: Please see below. GENERAL: awake, alert, NAD HEENT: NCAT, anicteric sclera, PERRLA/EOMI NECK: supple, no JVD, no masses/thyromegaly CARDIOVASCULAR EXAMINATION: NS1S2, regular, no M/R/G RESPIRATORY EXAMINATION: CTA b/l, no wheezes/rales/rhonchi ABDOMINAL EXAMINATION: NT/ND, positive bowel sounds x 4 EXTREMITIES: no cyanosis, clubbing, edema SKIN: warm, no rashes NEUROLOGICAL EXAMINATION: AAO x 3, no focal motor/sensory deficits PSYCHIATRIC EXAMINATION: calm, cooperative, normal affect LABORATORY DATA: Please see below. ACTIVITY: [As tolerated]. DIET: low fat/low cholesterol DISPOSITION: home DISCHARGE INSTRUCTIONS: 1. Please follow up with PCP in 1-2 weeks ITEMS TO FOLLOWUP ON ON OUTPATIENT: 1. none DISCHARGE CONDITION: [Stable]. TIME SPENT ON DISCHARGE: Greater than minutes. Vital Signs/I&Os Vital Signs Date Time Temp Pulse Resp B/P (MAP) Pulse Ox O2 Delivery O2 Flow Rate FiO2 05/23/19 12:00 97.8 116 15 121/86 (98) 98 Nasal Cannula 2.0 I&O- Last 24 Hours up to 6 AM 05/23/19 05:59 Intake Total 3015 ml Output Total 2690 ml Balance 325 ml Laboratory Data Labs 24H Laboratory Tests 2 05/23/19 05:09: Immature Granulocyte % (Auto) 0.4, Neutrophils (%) (Auto) 77.4H, Lymphocytes (%) (Auto) 12.4L, Monocytes (%) (Auto) 9.4H, Eosinophils (%) (Auto) 0.2, Basophils (%) (Auto) 0.2, Neutrophils # (Auto) 9.6H, Lymphocytes # (Auto) 1.5, Monocytes # (Auto) 1.2H, Eosinophils # (Auto) 0.0, Basophils # (Auto) 0.0, Nucleated Red Blood Cells % (auto) 0.0, Anion Gap 0L, Glomerular Filtration Rate > 60.0, Calcium Level 8.8 CBC/BMP Laboratory Tests 05/23/19 05:09 Microbiology Microbiology 05/22/19 Gram Stain - Final, Resulted 05/22/19 Sputum Culture, Resulted Pending 05/20/19 Coronavirus COVID-19 PCR (CECI) - Final, Complete 05/20/19 Respiratory Panel (PCR) - Final, Complete 05/20/19 Blood Culture - Preliminary, Resulted No Growth after 48 hours. All Specime... 05/20/19 Blood Culture - Preliminary, Resulted No Growth after 48 hours. All Specime... Discharge Medications Scheduled Albuterol Sulfate (Proventil Hfa) 6.7 Gm Hfa.aer.ad, 2 PUFF INH QID for wheezing, (Reported) Aspirin (Aspirin EC) 81 Mg Tablet.dr, 81 MG PO DAILY, (Reported) Azithromycin (Azithromycin) 500 Mg Tablet, 1 TAB PO DAILY Budesonide/Formoterol (Symbicort 160-4.5 Mcg Inhaler) 60 Puff/Inhaler Aers, 2 PUFF INH BID, (Reported) Digoxin (Digoxin) 125 Mcg Tablet, 125 MCG PO DAILY, (Reported) Ergocalciferol (Vitamin D2) (Vitamin D2) 2,000 Unit Tablet, 2,000 UNIT PO DAILY, (Reported) Formoterol Fumarate (Perforomist) 20 Mcg/2 Ml Neb, 1 INH INH BID, (Reported) Furosemide (Furosemide) 20 Mg Tablet, 20 MG PO DAILY, (Reported) Gabapentin (Gabapentin) 300 Mg Cap, 300 MG PO DAILY, (Reported) PATIENT STATES HE ONLY TAKES ONE IN THE MORNING. RX IS FOR BID Levothyroxine Sodium (Levothyroxine Sodium) 125 Mcg Tablet, 125 MCG PO DAILY, (Reported) Metoprolol Succinate (Metoprolol Succinate) 100 Mg Tab.er.24h, 100 MG PO DAILY, (Reported) Multivitamins (Thera M Plus Tablet) 1 Tab Tab, 1 TAB PO DAILY, (Reported) Cisco-3 Fatty Acids/Fish Oil (Fish Oil 1,000 mg Capsule) 1 Each Capsule, 1,000 MG PO DAILY, (Reported) Potassium Chloride (K-Tab ER) 10 Meq Tab, 20 MEQ PO DAILY, (Reported) Prednisone (Prednisone) 20 Mg Tablet, 1 TAB PO DAILY Rosuvastatin Calcium (Crestor) 10 Mg Tab, 40 MG PO DAILY, (Reported) Tamsulosin HCl (Flomax) 0.4 Mg Capsule, 0.4 MG PO DAILY, (Reported) Tiotropium [place] (Spiriva) 18 Mcg Cap, 1 PUFF INH DAILY, (Reported) Vitamin E (Vitamin E) 400 Unit Capsule, 400 UNIT PO DAILY, (Reported) Allergies Coded Allergies: No Known Allergies (Unverified , 04/23/14) JAMES SCRUGGS MD May 23, 2019 14:06
== END 2019-05-23 16:03 | disposition home or self-care (01) | DRG 871 ==
LOC: M ED 18:50 → M ED INP 21:05 → ENRESERV 21:29 → M PCU 23:00
PROVIDERS: ADMIT Internal Medicine; ATTEND Internal Medicine
DX: A41.9 Sepsis, unspecified organism (principal); J18.9 Pneumonia, unspecified organism; J96.11 Chronic respiratory failure with hypoxia; J44.1 Chronic obstructive pulmonary disease with (acute) exacerbation; J44.0 Chronic obstructive pulmonary disease with (acute) lower respiratory infection; I27.20 Pulmonary hypertension, unspecified; I48.91 Unspecified atrial fibrillation; I12.9 Hypertensive chronic kidney disease with stage 1 through stage 4 chronic kidney disease, or unspecified chronic kidney disease; E78.5 Hyperlipidemia, unspecified; R73.9 Hyperglycemia, unspecified; N18.3 Chronic kidney disease, stage 3 (moderate); E03.9 Hypothyroidism, unspecified; I45.10 Unspecified right bundle-branch block; I25.10 Atherosclerotic heart disease of native coronary artery without angina pectoris; Z99.81 Dependence on supplemental oxygen; Z95.5 Presence of coronary angioplasty implant and graft; Z86.73 Personal history of transient ischemic attack (TIA), and cerebral infarction without residual deficits; Z87.891 Personal history of nicotine dependence; Z79.82 Long term (current) use of aspirin; Z79.899 Other long term (current) drug therapy; Z11.59 Encounter for screening for other viral diseases

== ENCOUNTER 2019-06-15 13:07 | Emergency (ER) | payer MEDICARE ==
[~2019-06-15] VITALS: Ht 165.1 cm; Wt 72.7 kg
[~2019-06-15 13:07] MED LIST changes: +ASPI81CH33 PO; +ASPI81TA26 PO; +AZIT500T5 PO; +FISH1000 PO; +FLOM0.4C39 PO; +FURO20TA2 PO; +LEVO125T4 PO; +PROV108A INH; +VITA200028 PO; +VITA400C53 PO
[2019-06-15] MEDS ORDERED: ASPIRIN 81 MG CHEW TABLET PO ONE (13:45)
[2019-06-15] MEDS ORDERED: NS 1,000 ML IV ONE (13:45)
[2019-06-15] MEDS ORDERED: METO1TAB7 PO (13:52)
[2019-06-15 14:03] LABS: VENOUS BASE EXCESS 3.1 (-2.0-2.0); VENOUS HCO3 29.9 MEQ/L (23.0-27.0); VENOUS O2 SATURATION 87.6 % (60.0-80.0); VENOUS PARTIAL PRESSURE CO2 54.4 mmHg (38.0-50.0); VENOUS PARTIAL PRESSURE O2 58.2 mmHg (30.0-50.0); VENOUS PH 7.358 UNITS (7.330-7.430); VENOUS STANDARD HCO3 26.9 MEQ/L; VENOUS TOTAL CO2 31.6 MEQ/L (24.0-28.0)
[2019-06-15 14:12] LABS: BASO # 0.1 10^3/uL (0.0-0.2); BASO % 1.2 % (0.0-1.0); EOS # 0.5 10^3/uL (0.0-0.5); EOS % 6.4 % (0.0-3.0); HEMATOCRIT 45.4 % (42.0-52.0); HEMOGLOBIN 14.1 g/dl (13.5-17.5); LYMPH # 1.3 10^3/uL (1.5-5.0); LYMPH % 17.8 % (24.0-44.0); MEAN CORPUSCULAR HEMOGLOBIN 30.8 pg (27.0-33.0); MEAN CORPUSCULAR HGB CONC 31.1 g/dl (32.0-36.5); MEAN CORPUSCULAR VOLUME 99.1 fl (80.0-96.0); MONO # 0.9 10^3/uL (0.0-0.8); MONO % 11.7 % (0.0-5.0); NEUTROPHILS # 4.6 10^3/uL (1.5-8.5); NEUTROPHILS % 62.5 % (36.0-66.0); PLATELET COUNT, AUTOMATED 202 10^3/uL (150-450); RED BLOOD COUNT 4.58 10^6/uL (4.30-6.10); WHITE BLOOD COUNT 7.4 10^3/uL (4.0-10.0)
[2019-06-15 14:20] LABS: INR 1.24; PROTHROMBIN TIME 15.3 SECONDS (11.8-14.0)
[2019-06-15 14:38] LABS: ALBUMIN 3.1 GM/DL (3.2-5.2); BILIRUBIN,DIRECT 0.3 MG/DL (0.0-0.2); BILIRUBIN,TOTAL 0.8 MG/DL (0.2-1.0); CALCIUM LEVEL 8.9 MG/DL (8.8-10.2); CK-MB VALUE MASS 4.7 NG/ML (<3.6); CREATININE FOR GFR 1.25 MG/DL (0.70-1.30); GLOMERULAR FILTRATION RATE 58.4 (>35); MB/CK RELATIVE INDEX 6.62 (< OR =4); POTASSIUM SERUM 4.6 MEQ/L (3.5-5.1); TOTAL PROTEIN 6.6 GM/DL (6.4-8.2); TROPONIN I 0.05 NG/ML (< 0.10)
[2019-06-15] MEDS: COMBIVENT RESPIMAT 100-20MCG INHALER 4GM INH PRN ×2 (14:39→15:02)
--- NOTE | 2019-06-15 15:04 | REP ---
CHEST, SINGLE VIEW: Single view of the chest is performed and compared to prior studies, most recently 05/20/2019. Diffuse interstitial fibrosis appears stable. No definite superimposed acute infiltrate is seen. The previously noted left basilar infiltrate is not definitely present. The heart and mediastinum are unchanged. There are multiple sternal wires and mediastinal clips present. IMPRESSION: Chronic fibrotic changes are essentially stable. No definite superimposed acute infiltrate. Electronically Signed by Mikey Shannon MD 06/15/2019 03:14 P
[2019-06-15] MEDS ORDERED: ISOVUE-370 76% 100ML VIAL As Ordered ONE (15:17)
[2019-06-15 16:30] VITALS: BP 123/80
[2019-06-15] MEDS ORDERED: METAL LOCK LOOP XX ONE (16:38)
--- NOTE | 2019-06-15 16:39 | REP ---
CT PULMONARY ANGIOGRAM: WITH IV CONTRAST. HISTORY: Shortness of breath. COMPARISON STUDIES: Comparison CT study is from May 20, 2019. CONTRAST DOSE: 75 mL of Isovue [address] TECHNIQUE: Helical scanning is acquired and overlapping 1.5 mm and contiguous 3 mm axial images are reformatted. In addition, maximum intensity projection and multiplanar re-formation images are generated in sagittal and coronal imaging projections. CT PULMONARY ANGIOGRAPHIC FINDINGS: There is good opacification of the pulmonary arterial tree. There is no CT evidence of pulmonary embolus. Thoracic aorta is less well opacified but unchanged in caliber and course. Prior sternotomy. Scattered mediastinal lymph nodes are again seen, unchanged. No pleural or pericardial effusion is seen. Normal adrenal glands are seen. Visualized upper abdominal structures are unremarkable. There are opaque gallstones in the dependent portion of the gallbladder. Fairly extensive vascular calcification is again noted. There are advanced pulmonary fibrosis and emphysematous changes in the lung elaine bilaterally. The infiltrate recently seen in the lingular segment of the left upper lobe is significantly improved. No new focal infiltrate is appreciated. There is some bronchial wall thickening or cuffing, consistent with bronchitis picture. This is somewhat more prominent today. IMPRESSION: No CT evidence of pulmonary embolus. 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 Improved lingular infiltrate. No definite new infiltrate. Cholelithiasis. Prior sternotomy. Bronchial wall thickening diffusely consistent with bronchitis. Electronically Signed by Richie Sanches MD 06/15/2019 05:06 P
--- NOTE | 2019-06-15 16:46 | ECGEPIP ---
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
== END 2019-06-15 16:45 | disposition home or self-care (01) ==
LOC: M ED 13:07
DX: J44.1 Chronic obstructive pulmonary disease with (acute) exacerbation (principal); I10 Essential (primary) hypertension; Z99.81 Dependence on supplemental oxygen; Z98.61 Coronary angioplasty status; Z87.891 Personal history of nicotine dependence
CPT/HCPCS: 71045; 71275; 80048; 80076; 82550; 82553; 82803; 84484; 85025; 85610; 87040; 93005; 93041; 94640; 96360; 99285; Q9967

== ENCOUNTER 2019-07-11 13:52 | Emergency (ER) | payer MEDICARE ==
[~2019-07-11] VITALS: Ht 167.6 cm; Wt 69.4 kg
[2019-07-11] MEDS ORDERED: IPRATROPIUM 0.5MG/ALBUTEROL 2.5MG INH SOL UD 3ML (DUONEB) NEB SCH (14:45)
[2019-07-11] MEDS ORDERED: DALI250T PO (14:52)
[2019-07-11 14:53] LABS: BASO # 0.1 10^3/uL (0.0-0.2); BASO % 1.4 % (0.0-1.0); EOS # 0.3 10^3/uL (0.0-0.5); EOS % 5.4 % (0.0-3.0); HEMATOCRIT 39.4 % (42.0-52.0); LYMPH # 1.3 10^3/uL (1.5-5.0); LYMPH % 22.5 % (24.0-44.0); MEAN CORPUSCULAR HEMOGLOBIN 30.5 pg (27.0-33.0); MEAN CORPUSCULAR HGB CONC 30.5 g/dl (32.0-36.5); MONO # 0.7 10^3/uL (0.0-0.8); NEUTROPHILS # 3.5 10^3/uL (1.5-8.5); NEUTROPHILS % 58.5 % (36.0-66.0); PLATELET COUNT, AUTOMATED 185 10^3/uL (150-450); RED BLOOD COUNT 3.94 10^6/uL (4.30-6.10); WHITE BLOOD COUNT 5.9 10^3/uL (4.0-10.0)
[2019-07-11] MEDS ORDERED: blood thinner (14:54)
[2019-07-11] MEDS ORDERED: COMBIVENT RESPIMAT 100-20MCG INHALER 4GM INH ONE (15:00)
[2019-07-11] MEDS ORDERED: FUROSEMIDE 40MG/4ML VIAL (J1940) IV ONE (15:00)
--- NOTE | 2019-07-11 15:22 | ECGEPIP ---
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
[2019-07-11 15:49] LABS: BLOOD UREA NITROGEN 16 MG/DL (7-18); CALCIUM LEVEL 8.8 MG/DL (8.8-10.2); CARBON DIOXIDE LEVEL 35 MEQ/L (21-32); CHLORIDE LEVEL 107 MEQ/L (98-107); CREATININE FOR GFR 1.15 MG/DL (0.70-1.30); DIGOXIN LEVEL 0.7 NG/ML (0.5-2.0); GLOMERULAR FILTRATION RATE > 60.0 (>35); GLUCOSE, FASTING 125 MG/DL (70-100); NT-PRO BNP 1790 PG/ML (<450); POTASSIUM SERUM 4.5 MEQ/L (3.5-5.1); SODIUM LEVEL 144 MEQ/L (136-145); THYROID STIMULATING HORMONE 0.495 uIU/ML (0.358-3.740)
[2019-07-11] MEDS ORDERED: FURO40TA2 PO (16:25)
[2019-07-11 17:07] VITALS: O2SAT 90
[2019-07-11 17:15] VITALS: BP 111/80
--- NOTE | 2019-07-12 08:36 | REP ---
PORTABLE CHEST X-RAY: Single AP view. HISTORY: Chest pain. Preliminary report is provided at the time of the exam by Dr. Quintero. Comparison study June 15, 2019. FINDINGS: Lungs are hyperinflated. Median sternotomy wires are noted. Surgical clips are seen in the mediastinum. Heart is not enlarged. There is a prominent diffuse interstitial fibrosis pattern consistent with COPD. No superimposed infiltrate is appreciated. The pleural angles are sharp. IMPRESSION: COPD with advanced fibrosis. No superimposed infiltrate. Prior sternotomy. Electronically Signed by Richie Sanches MD 07/12/2019 10:59 A
== END 2019-07-11 17:17 | disposition home or self-care (01) ==
LOC: M ED 13:52
DX: I50.9 Heart failure, unspecified (principal); I11.0 Hypertensive heart disease with heart failure; J44.9 Chronic obstructive pulmonary disease, unspecified; E78.5 Hyperlipidemia, unspecified; E03.9 Hypothyroidism, unspecified; Z95.5 Presence of coronary angioplasty implant and graft; Z99.81 Dependence on supplemental oxygen; Z87.891 Personal history of nicotine dependence; Z79.899 Other long term (current) drug therapy; Z79.51 Long term (current) use of inhaled steroids
CPT/HCPCS: 36415; 71045; 80048; 80162; 83880; 84443; 84484; 85025; 93005; 93041; 94760; 96374; 99285; J1940

== ENCOUNTER 2019-07-15 10:06 | Emergency (ER) | payer MEDICARE ==
[~2019-07-15] VITALS: Ht 167.6 cm; Wt 75.9 kg
[~2019-07-15 10:06] MED LIST changes: +DALI250T PO; +blood thinner
[2019-07-15 10:07] VITALS: BP 126/64
[2019-07-15] MEDS ORDERED: ACETAMINOPHEN 325 MG TAB PO ONE (11:30)
--- NOTE | 2019-07-15 11:48 | REP ---
RIGHT FOOT: Four views. HISTORY: Trauma. FINDINGS: Four views right foot demonstrate mild diffuse osteopenia. 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 There is dorsal lateral soft tissue swelling. Vascular calcifications noted. There is no visible fracture or subluxation. IMPRESSION: No fracture seen. Soft tissue swelling over the forefoot and midfoot. Electronically Signed by Richie Sanches MD 07/15/2019 01:42 P
== END 2019-07-15 11:34 | disposition home or self-care (01) ==
LOC: M ED 10:06
DX: M25.571 Pain in right ankle and joints of right foot (principal); W22.8XXA Striking against or struck by other objects, initial encounter; Y92.9 Unspecified place or not applicable; W01.190A Fall on same level from slipping, tripping and stumbling with subsequent striking against furniture, initial encounter

== ENCOUNTER 2019-11-10 12:17 | Inpatient (IN) | payer MEDICARE ==
[~2019-11-10] VITALS: Ht 167.6 cm; Wt 66.5 kg
[2019-11-10] MEDS ORDERED: FUROSEMIDE 40MG/4ML VIAL (J1940) IV ONE (13:15)
--- NOTE | 2019-11-10 13:15 | REPVR ---
PROCEDURE INFORMATION: Exam: XR Chest, 1 View Exam date and time: 11/10/2019 1:08 PM Age: 84 years old Clinical indication: Shortness of breath; Additional info: Chest pain TECHNIQUE: Imaging protocol: XR of the chest Views: 1 view. COMPARISON: HI PORTABLE CHEST X-RAY 07/11/2019 2:23 PM FINDINGS: Lungs: The lungs are again hyperinflated and with coarse fibrotic changes. No new consolidation. Pleural space: Unremarkable. No pleural effusion. No pneumothorax. Heart/Mediastinum: The cardiomediastinal silhouette is fairly stable in appearance. Bones/joints: Median sternotomy wires are again present. IMPRESSION: Hyperinflation with coarse fibrotic changes, as on 07/11/19, without new disease. Electronically signed by: Rowdy Pedro On 11/10/2019 13:14:52 PM
[2019-11-10 13:24] LABS: BASO # 0.1 10^3/uL (0.0-0.2); BASO % 0.9 % (0.0-1.0); EOS # 0.2 10^3/uL (0.0-0.5); HEMATOCRIT 42.6 % (42.0-52.0); HEMOGLOBIN 12.8 g/dl (13.5-17.5); LYMPH # 1.2 10^3/uL (1.5-5.0); LYMPH % 14.3 % (24.0-44.0); MEAN CORPUSCULAR HEMOGLOBIN 29.8 pg (27.0-33.0); MEAN CORPUSCULAR VOLUME 99.3 fl (80.0-96.0); MONO # 0.9 10^3/uL (0.0-0.8); MONO % 11.2 % (0.0-5.0); NEUTROPHILS # 5.8 10^3/uL (1.5-8.5); NEUTROPHILS % 71.5 % (36.0-66.0); PLATELET COUNT, AUTOMATED 164 10^3/uL (150-450); RED BLOOD COUNT 4.29 10^6/uL (4.30-6.10); WHITE BLOOD COUNT 8.1 10^3/uL (4.0-10.0)
[2019-11-10 13:34] LABS: INR 1.21; PROTHROMBIN TIME 15.6 SECONDS (12.5-14.3)
[2019-11-10 13:52] LABS: ALBUMIN 3.2 GM/DL (3.2-5.2); BILIRUBIN,DIRECT 0.3 MG/DL (0.0-0.2); BILIRUBIN,TOTAL 0.8 MG/DL (0.2-1.0); THYROID STIMULATING HORMONE 0.144 uIU/ML (0.358-3.740); TOTAL PROTEIN 6.1 GM/DL (6.4-8.2)
[2019-11-10 14:18] LABS: DIGOXIN LEVEL 0.5 NG/ML (0.5-2.0)
[2019-11-10 15:30] LABS: FREE T4 1.45 NG/DL (0.76-1.46)
[2019-11-10] MEDS ORDERED: ROSU40TA4 PO (16:16)
[2019-11-10] MEDS ORDERED: SPIR12.9 INH (16:16)
[2019-11-10] MEDS ORDERED: METO1TAB33 PO (16:16)
[2019-11-10] MEDS ORDERED: XARE15TA PO (16:16)
[2019-11-10 19:00] VITALS: BP 114/65
[2019-11-10] MEDS ORDERED: ALBUTEROL 90 MCG/ACT 8GM HFA INHALER INH SCH (20:00)
[2019-11-10] MEDS: SYMBICORT 160/4.5MCG INHALER 6GM INH SCH (20:00)
--- NOTE | 2019-11-10 20:47 | HPEPDOC ---
[facility] Medical History & Physical Date of Admission Nov 10, 2019 Date of Service: Nov 10, 2019 History and Physical CHIEF COMPLAINT: Shortness of breath HISTORY OF PRESENT ILLNESS: 84-year-old male with past medical history of CAD last stenting in 2001 and CABG in 1991. COPD controlled with inhalers. Hypothyroidism. BPH, CHF, A. fib. Patient presents to the hospital due to gradual onset shortness of breath since yesterday. He says he is only able to walk a few steps before feeling short of breath which prompted him to present to the hospital. He also notices that his lower extremities have become progressively more swollen over the past few days. He admits to me that he's been eating a lot of chips at home as well as soups which could be high in salt. He tells me he's had a similar episode over one year ago. He lives at home independently and is able to the care of himself. He tells me that he's been feeling better by sleeping on 2 pillows at night the past 2 days. Tells me he is very compliant with his home medications. PAST MEDICAL HISTORY: LACIE Hypothyroidism BPH CHF A. fib PAST SURGICAL HISTORY: CABG SOCIAL HISTORY: Marital status: Resides in: Home Tobacco use: Denies any use in the past 20 years ETOH: Denies any use Illicit drug use: Denies any use ALLERGIES: Please see below. REVIEW OF SYSTEMS: Constitutional: No sweating or weight loss Eyes: No eye pain or acute blurred vision HENT: No complaints of headache or sore throat Cadiovascular: No Chest pain or palpitations Pulm: No cough. Mild shortness of breath currently mostly improved from when he was in the ED. Gastrointestinal: No N/V, no abdominal pain. Genitourinary: No dysuria or hematuria Musculoskeletal: No back pain or joint pain Skin: No rash or jaundice Neurological: No weakness. HOME MEDICATIONS: Please see below. PHYSICAL EXAMINATION: Constitutional: Awake and alert, in no apparent distress ENT: Sclera are clear. Mucosa is moist. Respiratory: Lungs crackles bilaterally right more than left. No respiratory distress. No use of accessory muscles. Cardiovascular: Irregular heart rate, no murmurs, no appreciable JVD. Lower extremities show 2+ pitting edema up to knees. Gastrointestinal: Abdomen is soft, non distended, non tender, BS present. Musculoskeletal: 2+ pitting edema up to knees Neurologic: No focal neurological deficit. Mental Status: A&O x3, normal affect Skin: Warm, dry LABORATORY DATA: See below. MICROBIOLOGY: Please see below. A/P 84-year-old male with past medical history of CAD last stenting in 2001 and CABG in 1991. COPD controlled with inhalers. Hypothyroidism. BPH, CHF, A. fib. Admitted for shortness of breath found to be in acute on chronic CHF exacerbation. Breathing had improved significantly by the time he was up to the medical floor after 1 dose of Lasix and good urine output. Patient admitted for medical management. # Acute on chronic CHF exacerbation: BNP elevated. Trend A&P. Recent echo shows. Echo. strict I&O, daily weights, fluid restriction 1L. maintain K>4 and Mg>2. cxr reviewed. 20 mg Lasix IV twice a day. Telemetry monitoring. # A Fib: Was in A. fib with RVR in the ED. Had corrected back to sinus after 3 IV metoprolol pushes. Resume Xarelto. Had a discussion with Dr. Oreilly cardiology about management of this patient's A. fib with RVR. He recommended switching the patient to metoprolol titrate 50 mg every 6 hours as metoprolol sustained is not as good for controlling heart rate. I will switch the patient over, ureter receives tonight's dose of metoprolol 100 mg however it's okay with Dr. Oreilly to give him an additional 50 mg of the tartrate. # Chest pressure: Reported in the ED now resolved. Trend EKGs and troponins given cardiac history. Troponin was 0.04 which is likely demand. Does not complain of any chest pain. # CAD: History of CABG. Last stenting >10 yr ago. Aspirin, statin, beta cherelle. # Hypothyroidism: Resume home levothyroxine. # History COPD: Inhalers PRN. No wheezing on exam. # DVT prophylaxis: xarelkeri Beck Yousef Hospitalist Vital Signs Vital Signs Date Time Temp Pulse Resp B/P (MAP) Pulse Ox O2 Delivery O2 Flow Rate FiO2 11/10/19 19:00 97.2 110 18 114/65 (81) 87 Nasal Cannula 2.0 Laboratory Data Labs 24H Laboratory Tests 2 11/10/19 12:45: Immature Granulocyte % (Auto) 0.1, Neutrophils (%) (Auto) 71.5H, Lymphocytes (%) (Auto) 14.3L, Monocytes (%) (Auto) 11.2H, Eosinophils (%) (Auto) 2.0, Basophils (%) (Auto) 0.9, Neutrophils # (Auto) 5.8, Lymphocytes # (Auto) 1.2L, Monocytes # (Auto) 0.9H, Eosinophils # (Auto) 0.2, Basophils # (Auto) 0.1, Nucleated Red Blood Cells % (auto) 0.0, Prothrombin Time 15.6H, Prothromb Time International Ratio 1.21, Total Bilirubin 0.8, Direct Bilirubin 0.3H, Aspartate Amino Transf (AST/SGOT) 36, Alanine Aminotransferase (ALT/SGPT) 33, Alkaline Phosphatase 225H, BM-Qsb-V-Type Natriuretic Peptide 4361H, Total Protein 6.1L, Albumin 3.2, Albumin/Globulin Ratio 1.1, Lipase 60L, Thyroid Stimulating Hormone (TSH) 0.144L, Free Thyroxine 1.45, Digoxin Level 0.5 11/10/19 12:49: POC Troponin I (Misc) 0.03 11/10/19 13:03: POC Glucose (Misc Panel) 96, POC Sodium (Misc Panel) 144, POC Potassium (Misc Panel) 3.9, POC Chloride (Misc Panel) 99, POC Total CO2 (Misc Panel) 33.0H, POC Blood Urea Nitrogen (Misc Panel 28H, POC Ionized Calcium (Misc Panel) 4.7, POC Creatinine (Misc Panel) 1.2, POC Hematocrit (Misc Panel) 42.0 11/10/19 17:57: Troponin I 0.04 CBC/BMP Laboratory Tests 11/10/19 12:45 Home Medications Scheduled Albuterol Sulfate (Proventil Hfa) 6.7 Gm Hfa.aer.ad, 2 PUFF INH QID for wheezing Budesonide/Formoterol (Symbicort 160-4.5 Mcg Inhaler) 60 Puff/Inhaler Aers, 2 PUFF INH BID Digoxin (Digoxin) 125 Mcg Tablet, 125 MCG PO DAILY Furosemide (Furosemide) 20 Mg Tablet, 20 MG PO DAILY Gabapentin (Gabapentin) 300 Mg Cap, 300 MG PO DAILY PATIENT STATES HE ONLY TAKES ONE IN THE MORNING. RX IS FOR BID Levothyroxine Sodium (Levothyroxine Sodium) 125 Mcg Tablet, 125 MCG PO DAILY Metoprolol Succinate (Metoprolol Succinate) 100 Mg Tab.er.24h, 100 MG PO QHS Metoprolol Succinate (Metoprolol Succinate) 100 Mg Tab.er.24h, 50 MG PO QAM Potassium Chloride (K-Tab ER) 10 Meq Tab, 20 MEQ PO DAILY Rivaroxaban (Xarelto) 15 Mg Tablet, 15 MG PO QHS Rosuvastatin Calcium (Rosuvastatin Calcium) 40 Mg Tablet, 40 MG PO QHS Tamsulosin HCl (Flomax) 0.4 Mg Capsule, 0.4 MG PO DAILY Tiotropium [place] (Spiriva Respimat) 4 Gm Mist.inhal, 2 INHALATION INH DAILY Vitamin E (Vitamin E) 400 Unit Capsule, 400 UNIT PO DAILY Allergies Coded Allergies: No Known Allergies (Unverified , 04/23/14) A-FIB/CHADSVASC A-FIB History Current/History of A-Fib/PAF?: Yes Current PO Anticoag Therapy: Yes Age/Risk Factor Scoring CHADSVASC: CHADSVASC Response (Comments) Value Age Risk Factor Age >/= 75 years old 2 Gender Risk Factor Male 0 Hx of CHF Yes 1 Hx of HTN No 0 Hx of Stroke/TIA/or VTE No 0 Hx of Diabetes No 0 Hx of Vascular Disease Yes 1 Total 4 Treatment Treatment ordered: Rivaroxaban YENY SOLORIO MD Nov 10, 2019 20:17
[2019-11-10] MEDS: ROSUVASTATIN 10 MG TAB (CRESTOR) PO SCH (20:58)
[2019-11-10] MEDS: RIVAROXABAN 15 MG TAB (XARELTO) PO SCH (20:58)
[2019-11-10] MEDS: FUROSEMIDE 20MG/2ML VIAL (J1940) IV SCH (20:58)
[2019-11-10] MEDS: METOPROLOL TART 50 MG TAB PO SCH (21:00)
[2019-11-10] MEDS ORDERED: METOPROLOL SUCC (TopROL XL) 100MG *XL* TAB PO SCH (21:00)
[2019-11-10 22:00] VITALS: BP 106/64
[2019-11-10 23:14] LABS: TROPONIN I 0.05 NG/ML (< 0.10)
[2019-11-11] MEDS ORDERED: LEVALBUTEROL HFA 45MCG/ACT 15 GM INHALER INH PRN ×2 (00:45→11:15)
[2019-11-11 02:18] LABS: MAGNESIUM LEVEL 2.1 MG/DL (1.8-2.4); POTASSIUM SERUM 4.2 MEQ/L (3.5-5.1)
[2019-11-11] MEDS: METOPROLOL TART 50 MG TAB PO SCH ×4 (03:00→21:50)
[2019-11-11] MEDS: LEVOTHYROXINE 125MCG TABLET (0.125MG) PO SCH (05:51)
[2019-11-11 06:00] VITALS: BP 102/64
[2019-11-11 06:56] LABS: HEMATOCRIT 40.2 % (42.0-52.0); HEMOGLOBIN 12.2 g/dl (13.5-17.5); MEAN CORPUSCULAR HEMOGLOBIN 30.3 pg (27.0-33.0); MEAN CORPUSCULAR HGB CONC 30.3 g/dl (32.0-36.5); MEAN CORPUSCULAR VOLUME 99.8 fl (80.0-96.0); PLATELET COUNT, AUTOMATED 170 10^3/uL (150-450); RED BLOOD COUNT 4.03 10^6/uL (4.30-6.10); WHITE BLOOD COUNT 7.6 10^3/uL (4.0-10.0)
[2019-11-11 07:18] LABS: CALCIUM LEVEL 8.9 MG/DL (8.8-10.2); CREATININE FOR GFR 1.23 MG/DL (0.70-1.30); GLOMERULAR FILTRATION RATE 59.5 (>35); POTASSIUM SERUM 3.9 MEQ/L (3.5-5.1)
[2019-11-11] MEDS: SYMBICORT 160/4.5MCG INHALER 6GM INH SCH ×2 (07:22→19:47)
[2019-11-11 09:00] VITALS: BP 101/65
[2019-11-11] MEDS ORDERED: METOPROLOL SUCC (TopROL XL) 50MG **XL** TAB PO SCH (09:00)
[2019-11-11] MEDS ORDERED: METOPROLOL SUCC (TopROL XL) 100MG *XL* TAB PO SCH (09:00)
[2019-11-11] MEDS: DIGOXIN 0.125 MG TAB PO SCH (10:35)
[2019-11-11] MEDS: TAMSULOSIN 0.4 MG CAP PO SCH (10:35)
[2019-11-11] MEDS: GABAPENTIN 300 MG CAP PO SCH (10:35)
[2019-11-11] MEDS: POTASSIUM CHLORIDE 10 MEQ SR TABLET PO SCH (10:36)
[2019-11-11] MEDS: FUROSEMIDE 20MG/2ML VIAL (J1940) IV SCH (10:36)
[2019-11-11 14:00] VITALS: BP 96/63
[2019-11-11] MEDS: LEVALBUTEROL HFA 45MCG/ACT 15 GM INHALER INH SCH ×2 (14:00→19:47)
--- NOTE | 2019-11-11 14:41 | IPNPDOC ---
Text Note Date of Service The patient was seen on 11/11/19. NOTE S Patient was seen and examined at bedside this morning. He tells me his breathing has improved significantly from yesterday. His leg swelling is also gone down. He'll try not to eat as much chips at home. Nurse tells me no overnight events. Denies any chest pain or palpitations. Since he is not completely back to baseline was at breathing but feels like he is 80% better. Has been walking around his room without any issue. O Constitutional: Awake and alert, in no apparent distress ENT: Sclera are clear. Mucosa is moist. Respiratory: Lungs crackles bilaterally right more than left. No respiratory distress. No use of accessory muscles. Cardiovascular: Irregular heart rate, no murmurs, no appreciable JVD. Lower extremities show 1-2+ pitting edema up to knees. Gastrointestinal: Abdomen is soft, non distended, non tender, BS present. Musculoskeletal: 2+ pitting edema up to knees Neurologic: No focal neurological deficit. Mental Status: A&O x3, normal affect Skin: Warm, dry A/P 84-year-old male with past medical history of CAD last stenting in 2001 and CABG in 1991. COPD controlled with inhalers. Hypothyroidism. BPH, CHF, A. fib. Ad mitted for shortness of breath found to be in acute on chronic CHF exacerbation. Breathing had improved significantly by the time he was up to the medical floor after 1 dose of Lasix and good urine output. Patient admitted for medical management. Has demonstrated significant improvement the day. # Acute on chronic CHF exacerbation: BNP elevated. Trend A&P. Recent echo shows. Echo. strict I&O, daily weights, fluid restriction 1L. maintain K>4 and Mg>2. cxr reviewed. 20 mg Lasix IV twice a day. Telemetry monitoring. # A Fib: Was in A. fib with RVR in the ED. Had corrected back to sinus after 3 IV metoprolol pushes. Resume Xarelto. Switched patient from home dose of m etoprolol succinate to metoprolol tartrate 50mg q6h which has slowed down his heart rate to between 90-100 bpm # Chest pressure: Reported in the ED now resolved. Trend EKGs and troponins given cardiac history. Troponin very mildly increased likely troponin leak due to demand. Does not complain of any chest pain. EKG reviewed. # CAD: History of CABG. Last stenting >10 yr ago. Aspirin, statin, beta cherelle. # Hypothyroidism: Resume home levothyroxine. # History COPD: Inhalers PRN. No wheezing on exam. # Dispo: To home lives independently. # DVT prophylaxis: luke Solorio Hospitalist Hanna SIERRA, I+O VS, Hanna, I+O Laboratory Tests 11/10/19 12:45 11/10/19 22:30 11/11/19 06:28 Vital Signs Date Time Temp Pulse Resp B/P (MAP) Pulse Ox O2 Delivery O2 Flow Rate FiO2 11/11/19 06:00 97.8 110 18 102/64 (77) 95 Room Air 11/10/19 22:00 2.0 I&O- Last 24 Hours up to 6 AM 11/11/19 05:59 Intake Total 300 ml Output Total 2450 ml Balance -2150 ml YENY SOLORIO MD Nov 11, 2019 07:40
[2019-11-11 15:45] VITALS: BP 99/61
[2019-11-11] MEDS: FUROSEMIDE 20 MG TAB PO SCH (16:10)
--- NOTE | 2019-11-11 18:15 | ECGEPIP ---
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
[2019-11-11] MEDS: RIVAROXABAN 15 MG TAB (XARELTO) PO SCH (21:49)
[2019-11-11] MEDS: ROSUVASTATIN 10 MG TAB (CRESTOR) PO SCH (21:49)
[2019-11-11 22:00] VITALS: BP 98/62
[2019-11-12] MEDS: LEVALBUTEROL HFA 45MCG/ACT 15 GM INHALER INH SCH ×4 (01:26→19:29)
[2019-11-12] MEDS: METOPROLOL TART 50 MG TAB PO SCH ×4 (02:50→21:00)
[2019-11-12] MEDS: LEVOTHYROXINE 125MCG TABLET (0.125MG) PO SCH (05:30)
[2019-11-12 06:00] VITALS: BP 100/60
[2019-11-12 07:28] LABS: HEMATOCRIT 37.3 % (42.0-52.0); HEMOGLOBIN 11.2 g/dl (13.5-17.5); MEAN CORPUSCULAR HEMOGLOBIN 30.1 pg (27.0-33.0); MEAN CORPUSCULAR VOLUME 100.3 fl (80.0-96.0); PLATELET COUNT, AUTOMATED 173 10^3/uL (150-450); RED BLOOD COUNT 3.72 10^6/uL (4.30-6.10); WHITE BLOOD COUNT 7.1 10^3/uL (4.0-10.0)
[2019-11-12 07:46] LABS: BLOOD UREA NITROGEN 33 MG/DL (7-18); CALCIUM LEVEL 8.8 MG/DL (8.8-10.2); CARBON DIOXIDE LEVEL 39 MEQ/L (21-32); CHLORIDE LEVEL 103 MEQ/L (98-107); CREATININE FOR GFR 1.09 MG/DL (0.70-1.30); GLOMERULAR FILTRATION RATE > 60.0 (>35); GLUCOSE, FASTING 112 MG/DL (70-100); POTASSIUM SERUM 3.9 MEQ/L (3.5-5.1); SODIUM LEVEL 144 MEQ/L (136-145)
[2019-11-12] MEDS: TAMSULOSIN 0.4 MG CAP PO SCH (08:08)
[2019-11-12] MEDS: FUROSEMIDE 20 MG TAB PO SCH ×2 (08:09→17:04)
[2019-11-12] MEDS: POTASSIUM CHLORIDE 10 MEQ SR TABLET PO SCH (08:09)
[2019-11-12] MEDS: GABAPENTIN 300 MG CAP PO SCH (08:10)
[2019-11-12 08:20] VITALS: O2SAT 97
[2019-11-12] MEDS: SYMBICORT 160/4.5MCG INHALER 6GM INH SCH ×2 (08:21→19:29)
[2019-11-12] MEDS: DIGOXIN 0.125 MG TAB PO SCH (08:27)
--- NOTE | 2019-11-12 09:30 | ECGEPIP ---
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[employer]: : 1935 Requested By: JESSE VERNON Order Number: [id number] Reading MD: Ashkan Reyes Measurements Intervals [place] Rate: 109 P: [place]: 0 QRS: 131 QRSD: 131 T: 11 QT: 364 QTc: 492 Interpretive Statements Rhythm appears to be atrial fibrillation with a rapid ventricular response---P wav waves are not apparent in this tracing Low QRS complex voltage in the limb leads Right bundle branch block with associated repolarization abnormalities No significant change when compared to prior tracing of 11/10/2019--rhythm similar Electronically Signed on 11-12-2019 9:30:36 EDT by Ashkan Reyes
[2019-11-12 09:39] LABS: NT-PRO BNP 2911 PG/ML (<450)
--- NOTE | 2019-11-12 09:51 | ECGEPIP ---
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
[2019-11-12 14:00] VITALS: BP 105/67
--- NOTE | 2019-11-12 19:05 | IPNPDOC ---
Text Note Date of Service The patient was seen on 11/12/19. NOTE S Patient was seen and examined at bedside this morning. He tells me his breathing has improved significantly from yesterday. His leg swelling is also gone down. He'll try not to eat as much chips at home. Nurse tells me no overnight events. Denies any chest pain or palpitations. Since he is not completely back to baseline was at breathing but feels like he is 80% better. Has been walking around his room without any issue. O Constitutional: Awake and alert, in no apparent distress ENT: Sclera are clear. Mucosa is moist. Respiratory: Lungs crackles bilaterally right more than left. No respiratory distress. No use of accessory muscles. Cardiovascular: Irregular heart rate, no murmurs, no appreciable JVD. Lower extremities show 1-2+ pitting edema up to knees. Gastrointestinal: Abdomen is soft, non distended, non tender, BS present. Musculoskeletal: 2+ pitting edema up to knees Neurologic: No focal neurological deficit. Mental Status: A&O x3, normal affect Skin: Warm, dry A/P 84-year-old male with past medical history of CAD last stenting in 2001 and CABG in 1991. COPD controlled with inhalers. Hypothyroidism. BPH, CHF, A. fib. Ad mitted for shortness of breath found to be in acute on chronic CHF exacerbation. Breathing had improved significantly by the time he was up to the medical floor after 1 dose of Lasix and good urine output. Patient admitted for medical management. Has demonstrated significant improvement the day. # Acute on chronic CHF exacerbation: BNP elevated down trended. Echo. strict I&O, daily weights, fluid restriction 1L. maintain K>4 and Mg>2. cxr reviewed. 20 mg Lasix IV twice a day switched to by mouth we'll see how the patient does on by mouth Lasix this will be an increase twice his normal home dose. Telemetry monitoring. # A Fib: Was in A. fib with RVR in the ED. Had corrected back to sinus after 3 IV metoprolol pushes. Resume Xarelto. Switched patient from home dose of metoprolol succinate to metoprolol tartrate 50mg q6h which has slowed down his heart rate to between 90-100 bpm. increased digoxin from 0.125->0.25 mg discussed this with Dr. Dong despite his age over 74 his kidney function is good and should achieve better rate control. # Chest pressure: Reported in the ED now resolved. Trend EKGs and troponins given cardiac history. Troponin very mildly increased likely troponin leak due to demand. Does not complain of any chest pain. EKG reviewed. # CAD: History of CABG. Last stenting >10 yr ago. Aspirin, statin, beta cherelle. # Hypothyroidism: Resume home levothyroxine. # History COPD: Inhalers PRN. No wheezing on exam. # Dispo: To home lives independently. Patient to go home however needs social work assistance to obtain medications as he cannot afford them. # DVT prophylaxis: luke Solorio Hospitalist VS,Hanna, I+O VSHanna I+O Laboratory Tests 11/12/19 06:31 Vital Signs Date Time Temp Pulse Resp B/P (MAP) Pulse Ox O2 Delivery O2 Flow Rate FiO2 11/12/19 14:22 110 105/67 11/12/19 14:00 97.1 16 94 Nasal Cannula 2.0 I&O- Last 24 Hours up to 6 AM 11/12/19 06:00 Intake Total 1110 ml Output Total 1405 ml Balance -295 ml YENY SOLORIO MD Nov 12, 2019 19:05
[2019-11-12] MEDS: RIVAROXABAN 15 MG TAB (XARELTO) PO SCH (21:09)
[2019-11-12] MEDS: ROSUVASTATIN 10 MG TAB (CRESTOR) PO SCH (21:09)
[2019-11-12 22:00] VITALS: BP 108/68
[2019-11-13] MEDS: LEVALBUTEROL HFA 45MCG/ACT 15 GM INHALER INH SCH ×3 (03:14→14:04)
[2019-11-13] MEDS: METOPROLOL TART 50 MG TAB PO SCH (03:16)
[2019-11-13 06:10] VITALS: BP 116/77
[2019-11-13] MEDS: LEVOTHYROXINE 125MCG TABLET (0.125MG) PO SCH (06:14)
[2019-11-13 06:41] LABS: HEMATOCRIT 39.6 % (42.0-52.0); HEMOGLOBIN 11.9 g/dl (13.5-17.5); MEAN CORPUSCULAR HEMOGLOBIN 30.1 pg (27.0-33.0); MEAN CORPUSCULAR HGB CONC 30.1 g/dl (32.0-36.5); PLATELET COUNT, AUTOMATED 169 10^3/uL (150-450); RED BLOOD COUNT 3.96 10^6/uL (4.30-6.10); WHITE BLOOD COUNT 6.5 10^3/uL (4.0-10.0)
[2019-11-13 07:05] LABS: BLOOD UREA NITROGEN 30 MG/DL (7-18); CALCIUM LEVEL 8.8 MG/DL (8.8-10.2); CARBON DIOXIDE LEVEL 39 MEQ/L (21-32); CHLORIDE LEVEL 103 MEQ/L (98-107); CREATININE FOR GFR 1.16 MG/DL (0.70-1.30); GLOMERULAR FILTRATION RATE > 60.0 (>35); GLUCOSE, FASTING 106 MG/DL (70-100); POTASSIUM SERUM 4.2 MEQ/L (3.5-5.1); SODIUM LEVEL 142 MEQ/L (136-145)
[2019-11-13 08:13] LABS: NT-PRO BNP 2783 PG/ML (<450); TROPONIN I 0.02 NG/ML (< 0.10)
[2019-11-13] MEDS: FUROSEMIDE 20 MG TAB PO SCH (08:35)
[2019-11-13] MEDS: POTASSIUM CHLORIDE 10 MEQ SR TABLET PO SCH (08:35)
[2019-11-13] MEDS: TAMSULOSIN 0.4 MG CAP PO SCH (08:35)
[2019-11-13] MEDS: GABAPENTIN 300 MG CAP PO SCH (08:35)
[2019-11-13 08:38] VITALS: BP 114/77
[2019-11-13] MEDS ORDERED: DIGOXIN 0.25 MG TAB PO SCH (09:00)
[2019-11-13] MEDS: SYMBICORT 160/4.5MCG INHALER 6GM INH SCH (09:00)
[2019-11-13] MEDS ORDERED: METOPROLOL SUCC (TopROL XL) 100MG *XL* TAB PO SCH (09:00)
[2019-11-13 09:01] VITALS: O2SAT 96
[2019-11-13] MEDS ORDERED: FURO20TA2 PO (10:48)
[2019-11-13] MEDS ORDERED: METO1TAB33 PO (10:48)
[2019-11-13] MEDS ORDERED: DIGO0.253 PO (10:48)
[2019-11-13] MEDS ORDERED: LEVAINH INH (10:48)
--- NOTE | 2019-11-13 11:14 | DS.PDOC ---
Discharge Summary General Date of Admission Nov 10, 2019 at 16:28 Date of Discharge 11/13/2019 Discharge Summary PROCEDURES PERFORMED DURING STAY: Echocardiogram ADMITTING DIAGNOSES: 1. Shortness of breath DISCHARGE DIAGNOSES: 1. Acute on chronic congestive heart failure COMPLICATIONS/CHIEF COMPLAINT: Chf Exacerbation. HISTORY OF PRESENT ILLNESS: HPI from H&P 84-year-old male with past medical history of CAD last stenting in 2001 and CABG in 1991. COPD controlled with inhalers. Hypothyroidism. BPH, CHF, A. fib. Patient presents to the hospital due to gradual onset shortness of breath since yesterday. He says he is only able to walk a few steps before feeling short of breath which prompted him to present to the hospital. He also notices that his lower extremities have become progressively more swollen over the past few days. He admits to me that he's been eating a lot of chips at home as well as soups which could be high in salt. He tells me he's had a similar episode over one year ago. He lives at home independently and is able to the care of himself. He tells me that he's been feeling better by sleeping on 2 pillows at night the past 2 days. Tells me he is very compliant with his home medications. HOSPITAL COURSE: 84-year-old male with past medical history of CAD last stenting in 2001 and CABG in 1991. COPD controlled with inhalers. Hypothyroidism. BPH, CHF, A. fib. Admitted for shortness of breath found to be in acute on chronic CHF exacerbation. Breathing had improved significantly by the time he was up to the medical floor after 1 dose of Lasix and good urine output. Patient admitted for medical management. Has done really well during his hospital stay. He has been diuresed and making good urine and is now appearing euvolemic at time of discharge. He has been switched from IV Lasix to by mouth. He'll be going home on a dose of 40 mg total Lasix per day which is twice his current home dose. During his hospital stay he had a episode of A. fib with RVR which was corrected in the ED with IV metoprolol. I increased his total daily metoprolol from 150 at home to 200. He will be discharged on Toprol succinate 100 mg twice daily. I also increase his digoxin from 0.125->0.25 mg daily and discussed this case with cardiology Dr Atencol. # Acute on chronic CHF exacerbation: BNP elevated has trended down. Echo to be done prior to discharge but given patient's improved clinical status back to baseline and being euvolemic at this time I have explained to him that he needs to follow-up with cardiology after discharge to review the echo results. strict I&O, daily weights, fluid restriction 1L. maintain K>4 and Mg>2. cxr reviewed. 20 mg Lasix PO twice a day. Telemetry monitoring. His blood pressure has been borderline low and so I will not be discharging him on an CODIE inhibitor, will defer this to PCP to reevaluate patient's blood pressure and appropriateness for starting CODIE. # A Fib: with RVR now controlled. Resume Xarelto. I increased his total daily metoprolol from 150 at home to 200. He will be discharged on Toprol succinate 100 mg twice daily. I also increase his digoxin from 0.125->0.25 mg daily and discussed this case with cardiology Dr Simons. He will be following up with cardiology outpatient to optimize management. # Chest pressure: Reported in the ED now resolved. Trend EKGs and troponins given cardiac history. Troponin was 0.04 which is likely demand. Does not complain of any chest pain. # CAD: History of CABG. Last stenting >10 yr ago. Aspirin, statin, beta cherelle. # Hypothyroidism: Resume home levothyroxine. # History COPD: Inhalers PRN. No wheezing on exam. DISCHARGE MEDICATIONS: Please see below. ALLERGIES: Please see below. PHYSICAL EXAMINATION ON DISCHARGE: VITAL SIGNS: Please see below. Constitutional: Awake and alert, in no apparent distress ENT: Sclera are clear. Mucosa is moist. Respiratory: Lungs crackles bilaterally right more than left. No respiratory distress. No use of accessory muscles. Cardiovascular: Irregular heart rate, no murmurs, no appreciable JVD. Lower extremities show trace pedal edema. Gastrointestinal: Abdomen is soft, non distended, non tender, BS present. Musculoskeletal: Lower extremity edema has trace resolved just some trace edema at time of discharge Neurologic: No focal neurological deficit. Mental Status: A&O x3, normal affect Skin: Warm, dry LABORATORY DATA: Please see below. PROGNOSIS: Fair ACTIVITY: [As tolerated]. DIET: Cardiac diet DISPOSITION: Home DISCHARGE INSTRUCTIONS: Please follow up with your primary care physician within 1 week from discharge. If you do not have one, please follow up with us to schedule an appointment. Please keep all of your follow up appointments. Please call central to book your appointments with hospital specialists. Please take all your medications as prescribed. Please call/come to Clinic or go to the Emergency Department if - Temp >101, intractable Nausea/Vomiting, Diarrhea, Mouth sores, Headaches, Altered mental status, Seizures, sudden onset of swelling, bleeding, shortness of breath or chest pain. ITEMS TO FOLLOWUP ON ON OUTPATIENT: 1. Follow-up with PCP in 3-5 days after discharge. #2. Follow-up with cardiology in the next 1-2 weeks to follow-up on results of echocardiogram and for medication optimization. DISCHARGE CONDITION: [Stable]. TIME SPENT ON DISCHARGE: 42 minutes. Vital Signs/I&Os Vital Signs Date Time Temp Pulse Resp B/P (MAP) Pulse Ox O2 Delivery O2 Flow Rate FiO2 11/13/19 10:17 2.0 11/13/19 09:01 96 Nasal Cannula 11/13/19 08:38 115 114/77 11/13/19 06:10 97.6 18 I&O- Last 24 Hours up to 6 AM 11/13/19 06:00 Intake Total 960 ml Output Total 1620 ml Balance -660 ml Laboratory Data Labs 24H Laboratory Tests 2 11/13/19 06:12: Nucleated Red Blood Cells % (auto) 0.0, Anion Gap 0L, Glomerular Filtration Rate > 60.0, Calcium Level 8.8, Troponin I 0.02, AN-Fzn-N-Type Natriuretic Peptide 2 783H CBC/BMP Laboratory Tests 11/13/19 06:12 Discharge Medications Scheduled Albuterol Sulfate (Proventil Hfa) 6.7 Gm Hfa.aer.ad, 2 PUFF INH QID for wheezing, (Reported) Budesonide/Formoterol (Symbicort 160-4.5 Mcg Inhaler) 60 Puff/Inhaler Aers, 2 PUFF INH BID, (Reported) Digoxin (Digoxin) 125 Mcg Tablet, 125 MCG PO DAILY, (Reported) Digoxin (Digoxin) 250 Mcg Tablet, 0.25 MG PO DAILY Furosemide (Furosemide) 20 Mg Tablet, 20 MG PO DAILY, (Reported) Furosemide (Furosemide) 20 Mg Tablet, 20 MG PO BID@, Gabapentin (Gabapentin) 300 Mg Cap, 300 MG PO DAILY, (Reported) PATIENT STATES HE ONLY TAKES ONE IN THE MORNING. RX IS FOR BID Levothyroxine Sodium (Levothyroxine Sodium) 125 Mcg Tablet, 125 MCG PO DAILY, (Reported) Metoprolol Succinate (Metoprolol Succinate) 100 Mg Tab.er.24h, 100 MG PO QHS, (Reported) Metoprolol Succinate (Metoprolol Succinate) 100 Mg Tab.er.24h, 50 MG PO QAM, (Reported) Metoprolol Succinate (Metoprolol Succinate) 100 Mg Tab.er.24h, 100 MG PO BID Potassium Chloride (K-Tab ER) 10 Meq Tab, 20 MEQ PO DAILY, (Reported) Rivaroxaban (Xarelto) 15 Mg Tablet, 15 MG PO QHS, (Reported) Rosuvastatin Calcium (Rosuvastatin Calcium) 40 Mg Tablet, 40 MG PO QHS, (Reported) Tamsulosin HCl (Flomax) 0.4 Mg Capsule, 0.4 MG PO DAILY, (Reported) Tiotropium [place] (Spiriva Respimat) 4 Gm Mist.inhal, 2 INHALATION INH DAILY, (Reported) Vitamin E (Vitamin E) 400 Unit Capsule, 400 UNIT PO DAILY, (Reported) Scheduled PRN Levalbuterol Hydrochloride (Xopenex Hfa) 15 Gm Hfa.aer.ad, 2 PUFF INH Q4HP PRN for SHORTNESS OF BREATH Allergies Coded Allergies: No Known Allergies (Unverified , 04/23/14) YENY SOLORIO MD Nov 13, 2019 11:14
--- NOTE | 2019-11-13 19:53 | ECGEPIP ---
[facility] Test Date: 2019-11-13 Pat Name: FRANCOISE ROSSI Department: Room: [place] [address] Gender: Male Pick Up Operator: ANAMIKA : 1935 Requested By: YENY Beck Order Number: [id number] Reading MD: Ashkan Reyes Measurements Intervals [place] Rate: 93 P: IA: 0 QRS: 151 QRSD: 145 T: 29 QT: 383 QTc: 477 Interpretive Statements Atrial fibrillation with controlled ventricular response Low QRS complex voltage in the limb leads Right bundle branch block with associated repolarization abnormalities No significant change when compared to prior tracing of 11/12/2019 Electronically Signed on 11-13-2019 19:53:40 EDT by Ashkan Reyes
--- NOTE | 2019-11-14 06:51 | ECHO ---
DATE OF PROCEDURE: 11/13/2019 Age: Gender: Male Height: 168 cm Weight: 67 kg REFERRING PHYSICIAN: Dedra Li MD INDICATION: Heart failure, unspecified. MEASUREMENTS: 2D Measurements: Aortic root 2.8 cm Left atrium 4.2 cm Left ventricle diastole 5.6 cm Interventricular septum 1.19 cm Posterior wall 0.98 cm Right ventricle 4.5 cm Inferior vena cava 2.2 cm with marked reduction of respiratory variation. Doppler Measurements: No aortic stenosis No aortic regurgitation Aortic valve velocity 132 cm/s LVOT velocity 69.8 cm/s Mild mitral regurgitation Moderate tricuspid regurgitation Estimated right ventricle systolic pressure at least 60 mmHg Very mild pulmonic regurgitation MITRAL ANNULAR TISSUE DOPPLER E prime septal 8.1 cm/s, E prime lateral 4.7 cm/s DESCRIPTION: Rhythm was sinus. Image quality was fair. This was a 2D, M-mode, color flow Doppler, and pulsed wave Doppler examination including mitral annular tissue Doppler. CONCLUSIONS: 1. Akinesis of the basal and mid inferoseptal, inferior, and inferolateral left ventricular (LV) segments and the inferoapical segment. Normal regional wall motion and wall thickening elsewhere. Severe reduction overall left ventricular (LV) systolic function. Left ventricular ejection fraction (LVEF) 31% (3D). Left ventricular (LV) diastolic function could not be fully determined on this study. 2. Mildly dilated right ventricle with predominantly akinesis to severe hypokinesis involving the right ventricle free wall. Moderately severe reduction overall right ventricle systolic function. 3. Suggestive of severe elevation of estimated right ventricle systolic pressure (at least 60 mmHg). Moderate tricuspid regurgitation. 4. Inferior vena cava plethora with marked reduction of respiratory variation suggestive of elevated central venous pressure of at least 20 mmHg. 5. Moderate mitral annular calcification. Mild mitral regurgitation. No mitral stenosis. 6. Mild aortic valve sclerosis of a 3-cuspid aortic valve. No aortic regurgitation. MTDD
[2019-11-14] MEDS ORDERED: LISI2.5T2 PO (09:14)
== END 2019-11-13 14:29 | disposition home or self-care (01) | DRG 308 ==
LOC: M ED 12:17 → M ED INP 16:28 → ENRESERV 17:14 → M MSPAV 18:53
PROVIDERS: ADMIT Family Medicine; ATTEND Family Medicine
DX: I48.91 Unspecified atrial fibrillation (principal); I50.23 Acute on chronic systolic (congestive) heart failure; E03.9 Hypothyroidism, unspecified; N40.0 Benign prostatic hyperplasia without lower urinary tract symptoms; I25.10 Atherosclerotic heart disease of native coronary artery without angina pectoris; J44.9 Chronic obstructive pulmonary disease, unspecified; Z95.5 Presence of coronary angioplasty implant and graft; Z79.01 Long term (current) use of anticoagulants; Z79.899 Other long term (current) drug therapy

== ENCOUNTER 2020-05-17 17:24 | Inpatient (IN) | payer MEDICARE ==
[~2020-05-17] VITALS: Ht 167.6 cm; Wt 64.9 kg
[~2020-05-17 17:24] MED LIST changes: +DIGO0.253 PO; +GABA-282 PO; -GABA-843 PO; +LEVAINH INH; +LISI2.5T2 PO; +ROSU40TA4 PO; +SPIR12.9 INH; +XARE15TA PO
--- NOTE | 2020-05-17 18:24 | REP ---
INDICATION: CHEST PAIN. COMPARISON: 11/10/19. TECHNIQUE: SINGLE PORTABLE AP VIEW OF THE CHEST WAS PERFORMED. FINDINGS: THERE IS NO ACUTE INFILTRATE. There are moderate fibrotic changes, stable. HEART IS NOT SIGNIFICANTLY ENLARGED. MEDIASTINAL SILHOUETTE IS UNREMARKABLE. THE VISUALIZED OSSEOUS STRUCTURES ARE INTACT.Sternal wires and mediastinal clips are noted. IMPRESSION: NO ACUTE PULMONARY DISEASE.Stable chronic changes. <Electronically signed by Mikey Shannon > 05/17/20 [id number]
[2020-05-17 18:36] LABS: BASO # 0.1 10^3/uL (0.0-0.2); BASO % 1.2 % (0.0-1.0); EOS # 0.2 10^3/uL (0.0-0.5); EOS % 3.5 % (0.0-3.0); HEMATOCRIT 37.2 % (42.0-52.0); LYMPH # 1.1 10^3/uL (1.5-5.0); LYMPH % 20.8 % (24.0-44.0); MEAN CORPUSCULAR HEMOGLOBIN 30.1 pg (27.0-33.0); MEAN CORPUSCULAR HGB CONC 29.6 g/dl (32.0-36.5); MEAN CORPUSCULAR VOLUME 101.9 fl (80.0-96.0); MONO # 0.6 10^3/uL (0.0-0.8); MONO % 11.6 % (2.0-8.0); NEUTROPHILS # 3.2 10^3/uL (1.5-8.5); NEUTROPHILS % 62.7 % (36.0-66.0); PLATELET COUNT, AUTOMATED 130 10^3/uL (150-450); RED BLOOD COUNT 3.65 10^6/uL (4.30-6.10); WHITE BLOOD COUNT 5.1 10^3/uL (4.0-10.0)
[2020-05-17] MEDS ORDERED: FUROSEMIDE 100MG/10ML VIAL (J1940) IV ONE (18:55)
[2020-05-17 19:10] LABS: ALBUMIN 3.1 GM/DL (3.2-5.2); BILIRUBIN,DIRECT 0.3 MG/DL (0.0-0.2); BILIRUBIN,TOTAL 0.6 MG/DL (0.2-1.0); THYROID STIMULATING HORMONE 1.2 uIU/ML (0.358-3.740)
[2020-05-17] MEDS ORDERED: SODIUM CHLORIDE NASAL 0.65% SPRAY BTL (OCEAN) PRN (21:00)
[2020-05-17] MEDS ORDERED: MAALOX 30 ML SUSP *UDC PO PRN (21:15)
[2020-05-17] MEDS ORDERED: MOM 30ML SUSPENSION UDC PO PRN (21:15)
[2020-05-17] MEDS ORDERED: ACETAMINOPHEN TAB 650MG DOSE (2X325MG) PO PRN (21:15)
[2020-05-17] MEDS ORDERED: SPIR12.9 INH (21:18)
[2020-05-17] MEDS ORDERED: D31000TA2 PO (21:18)
[2020-05-17] MEDS ORDERED: FURO20TA2 PO (21:18)
[2020-05-17] MEDS ORDERED: PROAAER10 INH (21:18)
[2020-05-17] MEDS ORDERED: DALI1TAB2 PO (21:18)
[2020-05-17] MEDS ORDERED: GABA-282 PO (21:18)
[2020-05-17] MEDS ORDERED: OCEA0.654 (21:18)
[2020-05-17] MEDS ORDERED: VITMTA PO (21:21)
--- NOTE | 2020-05-17 21:29 | HPEPDOC ---
[facility] Medical History & Physical Date of Admission May 17, 2020 Date of Service: May 17, 2020 History and Physical CHIEF COMPLAINT: shortness of breath HISTORY OF PRESENT ILLNESS: 84 yo M with a hx of CAD (s/p CABG and stenting), systolic CHF, afib on xarelto, COPD, BPH, hypothyroidism, presented with a week long hx of shortness of breath, and reduced exercise tolerance along with orthopnea and PND. Further, patient reports falling asleep on toilet 4 days ago, and waking up on the floor. Patient denies chest pain, palpitations, fevers, chills, n/v/d. On arrival, noted to be bradycardic to 47. BP 105/58. Pulse ox 97% on 2L. RR 18. Labs were reviewed. WBC 5.1. Hgb 11.0. PLT 130. BNP 2700. ALP 258. TSH 1.2. Patient was suspected to be in acute CHF exacerbation, given one dose of IV Lasix 60 mg in the ER. Patient will be admitted to hospitalist service for management of acute on chronic systolic congestive heart failure. PAST MEDICAL HISTORY: CAD s/p CABG 1991, stents in 2001 Hypothyroidism BPH CHF A. fib PAST SURGICAL HISTORY: CABG 1995 Cardiac catheterization 2001 SOCIAL HISTORY: Fomer smoker, quit 20 years ago Patient denies etoh use Patient denies illicit drug use ALLERGIES: Please see below. REVIEW OF SYSTEMS: A 10 point ROS was conducted, relevant findings are noted in the HPI HOME MEDICATIONS: Please see below. PHYSICAL EXAMINATION: VITAL SIGNS: please see below General: NAD, comfortable HEENT: PERRLA, EOMI, sclerae clear Neck: supple, normal ROM, no JVD Respiratory: lungs CTAB, no wheeze, no rales, no crackles CVS: RRR, normal S1, S2, no murmurs Abdo: soft, no masses, no hepatosplenomegaly, BS+, no rebound tenderness Extremities: no edema, pulses 2+ MSK: no joint deformities, normal ROM Neuro: no focal neuro deficits, moving all 4 extremities, CN2-12 intact. Strength 5/5 in all 4 extremities. No nystagmus. Psych: calm, cooperative, AAO x 3 LABORATORY DATA: See below. IMAGING: CXR (05/17/20): NO ACUTE PULMONARY DISEASE.Stable chronic changes. MICROBIOLOGY: Please see below. ASSESSMENT: 84 yo M with a hx of CAD s/p CABG and stenting, CHF, Afib on xarelto, COPD, Hypothyroidism, BPH, admitted to hospitalist service for shortness of breath, likely due to acute on chronic CHF exacerbation. PLAN: Acute on chronic systolic CHF exacerbation - noted marked BNP elevation, shortness of breath, crackles on exam - troponin wnl. - maintain on daily fluid restriction < 1800 cc - Obtain daily weights and monitor strict Is and Os - IV diuresis with Lasix, net negative goal of 2L - monitor on telemetry - last echo from 10/2019,, LVEF 31%. Akinesis of basa and mid inferoseptal, inferior and inferolateral LV segments, severe hypokinesis of R ventricle free wall. Suggestion of pulmonary hypertension - patients primary senior accounts payable specialist is Dr. Dong. Syncopal episode -4 days ago, states fell asleep on toilet and woke up on the ground -no focal neuro findings on exam -will check CT head -Echo ordered and pending -Check carotid US -Check orthostatics - PT and OT ordered Atrial fibrillation: - continue with xarelto for AC - noted that patient is taking xarelto 15 mg daily at home, dosing for afib us 20 mg daily - pharmacy confirms, changed to 20 mg daily CAD: - continue with ASA, statin and beta cherelle Hypothyroidism: - c/w home dose levothyroxine COPD: - appears clinically stable, no wheezing - resume home inhalers DVT ppx: continue xarelto Code status: DNR/DNI. MOLST form signed and witnessed. chuck Dispo: admission expect to last > 2 midnights. Vital Signs Vital Signs Date Time Temp Pulse Resp B/P (MAP) Pulse Ox O2 Delivery O2 Flow Rate FiO2 05/17/20 20:16 101 100 2.0 05/17/20 20:15 104/66 (79) 05/17/20 19:16 Nasal Cannula 05/17/20 17:25 97.8 18 Laboratory Data Labs 24H Laboratory Tests 2 05/17/20 18:26: Immature Granulocyte % (Auto) 0.2, Neutrophils (%) (Auto) 62.7, Lymphocytes (%) (Auto) 20.8L, Monocytes (%) (Auto) 11.6H, Eosinophils (%) (Auto) 3.5H, Basophils (%) (Auto) 1.2H, Neutrophils # (Auto) 3.2, Lymphocytes # (Auto) 1.1L, Monocytes # (Auto) 0.6, Eosinophils # (Auto) 0.2, Basophils # (Auto) 0.1, Nucleated Red Blood Cells % (auto) 0.0, Total Bilirubin 0.6, Direct Bilirubin 0.3H, Aspartate Amino Transf (AST/SGOT) 41H, Alanine Aminotransferase (ALT/SGPT) 41, Alkaline Phosphatase 258H, GT-Vmq-R-Type Natriuretic Peptide 2740H, Total Protein 6.0L, Albumin 3.1L, Albumin/Globulin Ratio 1.1, Lipase 129, Thyroid Stimulating Hormone (TSH) 1.200 05/17/20 18:33: POC Glucose (Misc Panel) 143H, POC Sodium (Misc Panel) 141, POC Potassium (Misc Panel) 3.6, POC Chloride (Misc Panel) 96L, POC Total CO2 (Misc Panel) 37.0H, POC Blood Urea Nitrogen (Misc Panel 24, POC Ionized Calcium (Misc Panel) 4.7, POC Creatinine (Misc Panel) 1.4H, POC Hematocrit (Misc Panel) 36.0L 05/17/20 18:35: POC Troponin I (Misc) 0.02 05/17/20 19:16: POC Glucose (Misc Panel) 142H, POC Sodium (Misc Panel) 141, POC Potassium (Misc Panel) 3.6, POC Chloride (Misc Panel) 95L, POC Total CO2 (Misc Panel) 37.0H, POC Blood Urea Nitrogen (Misc Panel 26, POC Ionized Calcium (Misc Panel) 4.7, POC Creatinine (Misc Panel) 1.4H, POC Hematocrit (Misc Panel) 36.0L CBC/BMP Laboratory Tests 05/17/20 18:26 Microbiology Microbiology 05/17/20 Respiratory Virus Panel (PCR) ([facility]) - Final, Complete Home Medications Scheduled Budesonide/Formoterol (Symbicort 160-4.5 Mcg Inhaler) 60 Puff/Inhaler Aers, 2 PUFF INH BID Cholecalciferol (Vitamin D3) (Vitamin D3) 1,000 Unit Tablet, 2,000 UNITS PO DAILY Furosemide (Furosemide) 20 Mg Tablet, 20 MG PO BID Gabapentin (Gabapentin) 300 Mg Capsule, 300 MG PO TID Levothyroxine Sodium (Levothyroxine Sodium) 125 Mcg Tablet, 125 MCG PO DAILY Multivitamins (Thera M Plus Tablet) 1 Each Tablet, 1 TAB PO DAILY Potassium Chloride (K-Tab ER) 10 Meq Tab, 20 MEQ PO DAILY Rivaroxaban (Xarelto) 15 Mg Tablet, 15 MG PO QHS Roflumilast (Daliresp) 500 Mcg Tablet, 500 MCG PO DAILY Rosuvastatin Calcium (Rosuvastatin Calcium) 40 Mg Tablet, 40 MG PO QHS Tamsulosin HCl (Flomax) 0.4 Mg Capsule, 0.4 MG PO DAILY Tiotropium [place] (Spiriva Respimat) 4 Gm Mist.inhal, 2 PUFFS INH DAILY TAKES AT NOON Vitamin E (Vitamin E) 400 Unit Capsule, 400 UNIT PO DAILY Scheduled PRN Albuterol Sulfate (Proair Hfa) 8.5 Gm Hfa.aer.ad, 2 PUFF INH QID PRN for SHORTNESS OF BREATH Sodium Chloride ([place]) 104 Ml [place], 2 SPRAYS NA QID PRN for NASAL DRYNESS Allergies Coded Allergies: No Known Allergies (Unverified , 04/23/14) ROM CRAVEN MD May 17, 2020 21:29
[2020-05-17] MEDS ORDERED: ALBUTEROL 90 MCG/ACT 8GM HFA INHALER INH PRN (21:40)
--- NOTE | 2020-05-17 22:05 | REPVR ---
PROCEDURE INFORMATION: Exam: CT Head Without Contrast Exam date and time: 05/17/2020 9:37 PM Age: 84 years old Clinical indication: Injury or trauma; Fall; Blunt trauma (contusions or hematomas) TECHNIQUE: Imaging protocol: Computed tomography of the head without contrast. Radiation optimization: All CT scans at this facility use at least one of these dose optimization techniques: automated exposure control; mA and/or kV adjustment per patient size (includes targeted exams where dose is matched to clinical indication); or iterative reconstruction. COMPARISON: No relevant prior studies available. FINDINGS: Brain: There is mild to moderate age related parenchymal volume loss. White confluent matter changes are demonstrated in the subcortical, centrum semiovale and periventricular white matter consistent with chronic age related small vessel ischemic changes. Mild diffuse cerebellar atrophy. Cerebral ventricles: The degree of ventricular dilatation is normal for age and/or degree of atrophy present. Bones/joints: Unremarkable. No acute fracture. Paranasal sinuses: Mild inflammatory changes in the ethmoid sinuses. Mastoid air cells: Visualized mastoid air cells are well aerated. Vasculature: Atherosclerotic calcifications are demonstrated in the intracranial carotid arteries bilaterally as well as in the vertebral basilar system. Soft tissues: Unremarkable. IMPRESSION: 1. There is mild to moderate age related parenchymal volume loss. White confluent matter changes are demonstrated in the subcortical, centrum semiovale and periventricular white matter consistent with chronic age related small vessel ischemic changes. 2. The degree of ventricular dilatation is normal for age and/or degree of atrophy present. 3. Mild diffuse cerebellar atrophy. 4. No acute intracranial findings. Electronically signed by: Ramon Mares On 05/17/2020 22:05:23 PM
[2020-05-17 22:30] VITALS: BP 104/76
--- NOTE | 2020-05-17 22:57 | REPVR ---
PROCEDURE INFORMATION: Exam: US Duplex Lower Extremity Veins, Bilateral Exam date and time: 05/17/2020 9:41 PM Age: 84 years old Clinical indication: Edema, localized; Lower extremity, bilateral; Additional info: R/O dvt TECHNIQUE: Imaging protocol: Real-time duplex ultrasound of the extremities with 2-D daniels scale, color Doppler flow and spectral waveform analysis with image documentation. Complete exam focused on the bilateral lower extremity veins. COMPARISON: No relevant prior studies available. FINDINGS: Right deep veins: Unremarkable. The common femoral, femoral, proximal profunda femoral and popliteal veins are patent without thrombus. Normal Doppler waveforms. Normal compressibility and/or augmentation response. Right superficial veins: The right greater saphenous vein is not seen with history of prior use for bypass. Left deep veins: Unremarkable. The common femoral, femoral, proximal profunda femoral and popliteal veins are patent without thrombus. Normal Doppler waveforms. Normal compressibility and/or augmentation response. Left superficial veins: Saphenofemoral junction is patent without thrombus. Soft tissues: Unremarkable. IMPRESSION: Negative bilateral lower extremity venous duplex exam without evidence of deep venous thrombosis. Electronically signed by: Ulises Ferrara On 05/17/2020 22:56:41 PM
[2020-05-17 23:30] VITALS: BP 110/68
[2020-05-17 23:35] VITALS: BP 113/66
[2020-05-18] MEDS: RIVAROXABAN 20 MG TAB (XARELTO) PO SCH ×2 (00:08→17:28)
[2020-05-18] MEDS: GABAPENTIN 300 MG CAP PO SCH ×4 (00:08→20:30)
[2020-05-18] MEDS: ROSUVASTATIN 10 MG TAB (CRESTOR) PO SCH ×2 (00:09→20:30)
[2020-05-18 06:00] VITALS: BP 148/72
[2020-05-18] MEDS ORDERED: LEVOTHYROXINE 125MCG TABLET (0.125MG) PO SCH (06:00)
[2020-05-18 06:20] LABS: BASO # 0.1 10^3/uL (0.0-0.2); BASO % 1.2 % (0.0-1.0); EOS # 0.2 10^3/uL (0.0-0.5); HEMATOCRIT 36.7 % (42.0-52.0); HEMOGLOBIN 10.9 g/dl (13.5-17.5); LYMPH # 1.1 10^3/uL (1.5-5.0); LYMPH % 19.5 % (24.0-44.0); MEAN CORPUSCULAR HEMOGLOBIN 29.7 pg (27.0-33.0); MEAN CORPUSCULAR HGB CONC 29.7 g/dl (32.0-36.5); MONO # 0.8 10^3/uL (0.0-0.8); MONO % 13.1 % (2.0-8.0); NEUTROPHILS # 3.6 10^3/uL (1.5-8.5); PLATELET COUNT, AUTOMATED 134 10^3/uL (150-450); RED BLOOD COUNT 3.67 10^6/uL (4.30-6.10); WHITE BLOOD COUNT 5.7 10^3/uL (4.0-10.0)
--- NOTE | 2020-05-18 06:41 | ECGEPIP ---
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
[2020-05-18 06:52] LABS: ALBUMIN 2.8 GM/DL (3.2-5.2); BILIRUBIN,TOTAL 0.6 MG/DL (0.2-1.0); CALCIUM LEVEL 8.7 MG/DL (8.8-10.2); CREATININE FOR GFR 1.24 MG/DL (0.70-1.30); POTASSIUM SERUM 3.5 MEQ/L (3.5-5.1)
[2020-05-18] MEDS: TIOTROPIUM INHALER/CAPSULE (SPIRIVA) INH SCH (07:41)
[2020-05-18] MEDS: SYMBICORT 160/4.5MCG INHALER 6GM INH SCH ×2 (07:41→19:09)
--- NOTE | 2020-05-18 07:53 | REP ---
INDICATION: syncopal episode COMPARISON: None. TECHNIQUE: Shannon scale and color Doppler evaluation using linear high frequency transducer Findings: FINDINGS: Two-dimensional shannon scale and color images demonstrate moderate mixed atheromatous plaquing along the bilateral carotid arteries extending through the carotid bulbs to the proximal internal and external carotid arteries. Color Doppler interrogation demonstrates arterial wave patterns with spectral broadening. Normal flow direction is appreciated in the bilateral vertebral arteries. ICA peak systolic velocity: Right 175 cm/s; Left 213 cm/s ICA diastolic velocity: Right 67 cm/s; Left 76 cm/s ECA peak systolic velocity: Right 211 cm/s; Left 206 cm/s CCA peak systolic velocity: Right 86 cm/s; Left 90 cm/s ICA/CCA ratio: Right 2.0 cm/s; Left 2.4 cm/s IMPRESSION: Based on set standards narrowing falls within the 50-69% range bilaterally as well as at the bilateral external carotid arteries.. <Electronically signed by Matt Quintero > 05/18/20 [id number]
[2020-05-18] MEDS ORDERED: FUROSEMIDE 40MG/4ML VIAL (J1940) IV SCH (09:00)
[2020-05-18] MEDS: TAMSULOSIN 0.4 MG CAP PO SCH (09:39)
[2020-05-18] MEDS: DOCUSATE SODIUM 100MG CAPSULE PO SCH ×2 (09:39→20:31)
[2020-05-18] MEDS: VITAMIN D 1,000 INTERNATIONAL UNITS TABLET PO SCH (09:39)
[2020-05-18] MEDS: MULTIVITAMINS/MINERALS THERAP 1 TAB PO SCH (09:39)
[2020-05-18] MEDS: POTASSIUM CHLORIDE 10 MEQ SR TABLET PO SCH (09:40)
[2020-05-18 14:00] VITALS: BP 102/63
[2020-05-18] MEDS ORDERED: DIGOXIN 0.25 MG TAB PO ONE (15:00)
[2020-05-18 15:35] LABS: MAGNESIUM LEVEL 2.1 MG/DL (1.8-2.4); POTASSIUM SERUM 3.8 MEQ/L (3.5-5.1)
[2020-05-18] MEDS ORDERED: DIGOXIN INJ 0.5 MG/2 ML AMP (J1160) IV ONE (17:15)
[2020-05-18 22:00] VITALS: BP 112/72
[2020-05-19 06:00] VITALS: BP_SYST 101; BP_SYST 107; BP_SYST 114; BP_SYST 115; BP_DIAS 60; BP_DIAS 67; BP_DIAS 68; BP_DIAS 69
[2020-05-19] MEDS ORDERED: LEVOTHYROXINE 100MCG TABLET (0.1MG) PO SCH (06:00)
[2020-05-19 07:03] LABS: BASO # 0.1 10^3/uL (0.0-0.2); BASO % 0.7 % (0.0-1.0); EOS # 0.2 10^3/uL (0.0-0.5); EOS % 2.8 % (0.0-3.0); HEMATOCRIT 36.9 % (42.0-52.0); HEMOGLOBIN 10.9 g/dl (13.5-17.5); LYMPH # 1.5 10^3/uL (1.5-5.0); LYMPH % 21.6 % (24.0-44.0); MEAN CORPUSCULAR HEMOGLOBIN 29.9 pg (27.0-33.0); MEAN CORPUSCULAR HGB CONC 29.5 g/dl (32.0-36.5); MEAN CORPUSCULAR VOLUME 101.4 fl (80.0-96.0); MONO % 14.7 % (2.0-8.0); NEUTROPHILS # 4.1 10^3/uL (1.5-8.5); NEUTROPHILS % 60.1 % (36.0-66.0); PLATELET COUNT, AUTOMATED 144 10^3/uL (150-450); RED BLOOD COUNT 3.64 10^6/uL (4.30-6.10); WHITE BLOOD COUNT 6.9 10^3/uL (4.0-10.0)
[2020-05-19] MEDS: SYMBICORT 160/4.5MCG INHALER 6GM INH SCH (07:17)
[2020-05-19] MEDS: TIOTROPIUM INHALER/CAPSULE (SPIRIVA) INH SCH (07:17)
[2020-05-19 07:53] LABS: ALBUMIN 2.7 GM/DL (3.2-5.2); ALT/SGPT 30 U/L (12-78); BILIRUBIN,TOTAL 0.5 MG/DL (0.2-1.0); BLOOD UREA NITROGEN 26 MG/DL (7-18); CALCIUM LEVEL 8.7 MG/DL (8.8-10.2); CARBON DIOXIDE LEVEL 39 MEQ/L (21-32); CHLORIDE LEVEL 102 MEQ/L (98-107); CREATININE FOR GFR 1.19 MG/DL (0.70-1.30); GLOMERULAR FILTRATION RATE > 60.0 (>35); GLUCOSE, FASTING 93 MG/DL (70-100); MAGNESIUM LEVEL 2.2 MG/DL (1.8-2.4); SODIUM LEVEL 144 MEQ/L (136-145); TOTAL PROTEIN 5.4 GM/DL (6.4-8.2)
[2020-05-19] MEDS: GABAPENTIN 300 MG CAP PO SCH (08:19)
[2020-05-19] MEDS: POTASSIUM CHLORIDE 10 MEQ SR TABLET PO SCH (08:20)
[2020-05-19] MEDS: DOCUSATE SODIUM 100MG CAPSULE PO SCH (08:20)
[2020-05-19] MEDS: TAMSULOSIN 0.4 MG CAP PO SCH (08:20)
[2020-05-19] MEDS: VITAMIN D 1,000 INTERNATIONAL UNITS TABLET PO SCH (08:20)
[2020-05-19] MEDS: MULTIVITAMINS/MINERALS THERAP 1 TAB PO SCH (08:20)
[2020-05-19] MEDS ORDERED: DIGOXIN 0.125 MG TAB PO SCH (09:00)
[2020-05-19] MEDS ORDERED: FUROSEMIDE 40MG/4ML VIAL (J1940) IV SCH (09:00)
[2020-05-19] MEDS ORDERED: DIGO0.123 PO (10:47)
[2020-05-19] MEDS ORDERED: FURO20TA2 PO ×2 (10:47→10:51)
--- NOTE | 2020-05-19 12:49 | DS.PDOC ---
Discharge Summary General Date of Admission May 17, 2020 at 21:13 Date of Discharge 05/19/2020 Attending Physician: MICHA THIBODEAUX MD Discharge Summary PROCEDURES PERFORMED DURING STAY: None ADMITTING DIAGNOSES: CHF exacerbation DISCHARGE DIAGNOSES: Acute on chronic systolic congestive heart failure ICM CAD s/p CABG 1991, stents in 2001 Hypothyroidism BPH Chronic A. fib w/ episodes of RVR COMPLICATIONS/CHIEF COMPLAINT: Chf Exacerbation. HISTORY OF PRESENT ILLNESS: 84 yo M with a hx of CAD (s/p CABG and stenting), systolic CHF, afib on xarelto, COPD, BPH, hypothyroidism, who presented with a week long hx of shortness of breath, and reduced exercise tolerance along with orthopnea and PND without any chest pain, palpitations, fevers, chills, n/v/d. HOSPITAL COURSE: On arrival, he was noted to be bradycardic to 47. BP 105/58. Pulse ox 97% on 2L. RR 18. Studies were notable for WBC 5.1. Hgb 11.0. PLT 130. proBNP 2700. ALP 258. TSH 1.2 and he was suspected to be in acute CHF exacerbation, given one dose of IV Lasix 60 mg in the ER and admitted to hospitalist service for management of acute on chronic systolic congestive heart failure. While inpatient, he was given lasix IV with great effect and he returned to his baseline 2L NC and exercise tolerance improved such that he was deemed appropriate and safe for home discharge by physical therapy. I have now changed his lasix 20mg PO BID that I think was too low a dose of lasix to 40mg PO once daily to try and maintain euvolemia though he will continue this optmization with his PCP and sternman in the outpatient setting. Of note, he did develop some RVR for which he was started on digoxin 0.125mg daily and will follow up outpatient. Mr. Ku's systolic heart failure is quite severe and his EF of 30% and frequent ectopy justify an AICD placement and he reports that this was an ongoing outpatient discussion and so will defer to PCP and sternman at this time. Of note, his blood pressures also run soft without enough hemodynamic room to add on ACEi or ARB as well as BB per optimization recommendations. Of note, TTE was completed but the read is not yet available. DISCHARGE MEDICATIONS: Please see below. ALLERGIES: Please see below. PHYSICAL EXAMINATION ON DISCHARGE: VITAL SIGNS: Please see below. General: NAD, comfortable HEENT: PERRLA, EOMI, sclerae clear Neck: supple, normal ROM, no JVD Respiratory: lungs CTAB, no wheeze, no rales, no crackles CVS: RRR, normal S1, S2, no murmurs Abdo: soft, no masses, no hepatosplenomegaly, BS+, no rebound tenderness Extremities: no edema, pulses 2+ MSK: no joint deformities, normal ROM Neuro: no focal neuro deficits, moving all 4 extremities, CN2-12 intact. Strength 5/5 in all 4 extremities. No nystagmus. Psych: calm, cooperative, AAO x 3 LABORATORY DATA: Please see below. IMAGIN/1 CXR: THERE IS NO ACUTE INFILTRATE. There are moderate fibrotic changes, stable. HEART IS NOT SIGNIFICANTLY ENLARGED. MEDIASTINAL SILHOUETTE IS UNREMARKABLE. THE VISUALIZED OSSEOUS STRUCTURES ARE INTACT.Sternal wires and mediastinal clips are noted. IMPRESSION: NO ACUTE PULMONARY DISEASE.Stable chronic changes. bilateral LE doppler venous US: Right deep veins: Unremarkable. The common femoral, femoral, proximal profunda femoral and popliteal veins are patent without thrombus. Normal Doppler waveforms. Normal compressibility and/or augmentation response. Right superficial veins: The right greater saphenous vein is not seen with history of prior use for bypass. Left deep veins: Unremarkable. The common femoral, femoral, proximal profunda femoral and popliteal veins are patent without thrombus. Normal Doppler waveforms. Normal compressibility and/or augmentation response. Left superficial veins: Saphenofemoral junction is patent without thrombus. Soft tissues: Unremarkable. IMPRESSION: Negative bilateral lower extremity venous duplex exam without evidence of deep venous thrombosis. Carotid US: Two-dimensional daniels scale and color images demonstrate moderate mixed atheromatous plaquing along the bilateral carotid arteries extending through the carotid bulbs to the proximal internal and external carotid arteries. Color Doppler interrogation demonstrates arterial wave patterns with spectral broadening. Normal flow direction is appreciated in the bilateral vertebral arteries. ICA peak systolic velocity: Right 175 cm/s; Left 213 cm/s ICA diastolic velocity: Right 67 cm/s; Left 76 cm/s ECA peak systolic velocity: Right 211 cm/s; Left 206 cm/s CCA peak systolic velocity: Right 86 cm/s; Left 90 cm/s ICA/CCA ratio: Right 2.0 cm/s; Left 2.4 cm/s IMPRESSION: Based on set standards narrowing falls within the 50-69% range bilaterally as well as at the bilateral external carotid arteries.. Head CT: Brain: There is mild to moderate age related parenchymal volume loss. White confluent matter changes are demonstrated in the subcortical, centrum semiovale and periventricular white matter consistent with chronic age related small vessel ischemic changes. Mild diffuse cerebellar atrophy. Cerebral ventricles: The degree of ventricular dilatation is normal for age and/or degree of atrophy present. Bones/joints: Unremarkable. No acute fracture. Paranasal sinuses: Mild inflammatory changes in the ethmoid sinuses. Mastoid air cells: Visualized mastoid air cells are well aerated. Vasculature: Atherosclerotic calcifications are demonstrated in the intracranial carotid arteries bilaterally as well as in the vertebral basilar system. Soft tissues: Unremarkable. IMPRESSION: 1. There is mild to moderate age related parenchymal volume loss. White confluent matter changes are demonstrated in the subcortical, centrum semiovale and periventricular white matter consistent with chronic age related small vessel ischemic changes. 2. The degree of ventricular dilatation is normal for age and/or degree of atrophy present. 3. Mild diffuse cerebellar atrophy. 4. No acute intracranial findings. PROGNOSIS: good ACTIVITY: As tolerated DIET: 2g sodium DISCHARGE PLAN: Home w/ lasix 40mg daily instead of 20mg BID. Also now on digoxin 0.125 QD DISPOSITION: Home DISCHARGE INSTRUCTIONS: Home w/ lasix 40mg daily instead of 20mg BID. Also now on digoxin 0.125 QD ITEMS TO FOLLOWUP ON ON OUTPATIENT: HFrEF optimization, AICD placement and continued volume optimization DISCHARGE CONDITION: Stable TIME SPENT ON DISCHARGE: 46 minutes. Vital Signs/I&Os Vital Signs Date Time Temp Pulse Resp B/P (MAP) Pulse Ox O2 Delivery O2 Flow Rate FiO2 05/19/20 08:00 2.0 05/19/20 07:42 124 05/19/20 06:00 99.7 19 101/60 (74) 98 Room Air I&O- Last 24 Hours up to 6 AM 05/19/20 06:00 Intake Total 1760 ml Output Total 1850 ml Balance -90 ml Laboratory Data Labs 24H Laboratory Tests 2 05/18/20 14:58: Magnesium Level 2.1 05/19/20 05:41: Magnesium Level 2.2, Immature Granulocyte % (Auto) 0.1, Neutrophils (%) (Auto) 60.1, Lymphocytes (%) (Auto) 21.6L, Monocytes (%) (Auto) 14.7H, Eosinophils (%) (Auto) 2.8, Basophils (%) (Auto) 0.7, Neutrophils # (Auto) 4.1, Lymphocytes # (Auto) 1.5, Monocytes # (Auto) 1.0H, Eosinophils # (Auto) 0.2, Basophils # (Auto) 0.1, Nucleated Red Blood Cells % (auto) 0.0, Anion Gap 3L, Glomerular Filtration Rate > 60.0, Calcium Level 8.7L, Total Bilirubin 0.5, Aspartate Amino Transf (AST/SGOT) 29, Alanine Aminotransferase (ALT/SGPT) 30, Alkaline Phosphatase 213H, Total Protein 5.4L, Albumin 2.7L, Albumin/Globulin Ratio 1.0 CBC/BMP Laboratory Tests 05/18/20 14:58 05/19/20 05:41 Microbiology Microbiology 05/17/20 Respiratory Virus Panel (PCR) ([facility]) - Final, Complete Discharge Medications Scheduled Budesonide/Formoterol (Symbicort 160-4.5 Mcg Inhaler) 60 Puff/Inhaler Aers, 2 PUFF INH BID, (Reported) Cholecalciferol (Vitamin D3) (Vitamin D3) 1,000 Unit Tablet, 2,000 UNITS PO DAILY, (Reported) Digoxin (Digoxin) 125 Mcg Tablet, 0.125 MG PO DAILY Furosemide (Furosemide) 20 Mg Tablet, 40 MG PO DAILY Gabapentin (Gabapentin) 300 Mg Capsule, 300 MG PO TID, (Reported) Levothyroxine Sodium (Levothyroxine Sodium) 125 Mcg Tablet, 125 MCG PO DAILY, (Reported) Multivitamins (Thera M Plus Tablet) 1 Each Tablet, 1 TAB PO DAILY, (Reported) Potassium Chloride (K-Tab ER) 10 Meq Tab, 20 MEQ PO DAILY, (Reported) Rivaroxaban (Xarelto) 15 Mg Tablet, 15 MG PO QHS, (Reported) Roflumilast (Daliresp) 500 Mcg Tablet, 500 MCG PO DAILY, (Reported) Rosuvastatin Calcium (Rosuvastatin Calcium) 40 Mg Tablet, 40 MG PO QHS, (Reported) Tamsulosin HCl (Flomax) 0.4 Mg Capsule, 0.4 MG PO DAILY, (Reported) Tiotropium [place] (Spiriva Respimat) 4 Gm Mist.inhal, 2 PUFFS INH DAILY, (Reported) TAKES AT NOON Vitamin E (Vitamin E) 400 Unit Capsule, 400 UNIT PO DAILY, (Reported) Scheduled PRN Albuterol Sulfate (Proair Hfa) 8.5 Gm Hfa.aer.ad, 2 PUFF INH QID PRN for SHORTNESS OF BREATH, (Reported) Sodium Chloride ([place]) 104 Ml [place], 2 SPRAYS NA QID PRN for NASAL DRYNESS, (Reported) Allergies Coded Allergies: No Known Allergies (Unverified , 04/23/14) MICHA THIBODEAUX MD May 19, 2020 12:49
--- NOTE | 2020-05-19 12:50 | IPNPDOC ---
Text Note Date of Service The patient was seen on 05/19/20. NOTE SUBJECTIVE: -On room air this morning -No complaints overnight PHYSICAL EXAMINATION: VITAL SIGNS: please see below General: NAD, comfortable HEENT: PERRLA, EOMI, sclerae clear Neck: supple, normal ROM, no JVD Respiratory: lungs CTAB, no wheeze, crackles or rhonchi CVS: RRR, normal S1, S2, no murmurs Abdo: soft, no masses, no hepatosplenomegaly, normoactive bowel sounds Extremities: no noted edema, pulses 2+, WWP MSK: no joint deformities, normal ROM Neuro: no focal neuro deficits, moving all 4 extremities, CN2-12 intact. Strength 5/5 in all 4 extremities. Psych: calm, cooperative, AAO x 3 LABORATORY DATA: Reviewed WBC 6.9 Hgb 10.9 platelets 144 Na 144 K 4 Cr 1.19 Mag 2.2 CXR (05/17/20): NO ACUTE PULMONARY DISEASE.Stable chronic changes. MICROBIOLOGY: Please see below. ASSESSMENT: 84 yo M with a hx of CAD s/p CABG and stenting, CHF, Afib on xarelto, COPD, Hypothyroidism, BPH, admitted to hospitalist service for shortness of breath, likely due to acute on chronic CHF exacerbation. PLAN: Acute on chronic systolic CHF exacerbation - noted marked BNP elevation, shortness of breath, crackles on exam - troponin wnl. - maintain on daily fluid restriction < 1800 cc - Obtain daily weights and monitor strict Is and Os - Switch from IV to PO diuresis with Lasix, now 40mg daily - monitor on telemetry - last echo from 10/2019,, LVEF 31%. Akinesis of basa and mid inferoseptal, inferior and inferolateral LV segments, severe hypokinesis of R ventricle free wall. Suggestion of pulmonary hypertension - patients primary commissioning editor is Dr. Dong though also [facility]. Not optimized on HFrEF per guideline with soft BPs that would not give room for ACEi and BB at this time. Recent syncopal episode -no focal neuro findings on exam -Head CT without acute findings -Echo read pending -Carotid US without findings that could explain the syncope -Mild orthostasis however also with ongoing diuresis - PT and OT eval and treatment ongoing Atrial fibrillation: -continue with xarelto for AC -digoxin daily as started by Dr. Swartz for tachycardia with soft BPs CAD: - continue with ASA, statin and beta cherelle Hypothyroidism: - c/w home dose levothyroxine COPD: - appears clinically stable, no wheezing - resume home inhalers DVT ppx: continue xarelto Code status: DNR/DNI. MOLST form signed and witnessed. chuck Dispo: admission expect to last > 2 midnights. VS,Fishbone, I+O VS, Fishbone, I+O Laboratory Tests 05/18/20 14:58 05/19/20 05:41 Vital Signs Date Time Temp Pulse Resp B/P (MAP) Pulse Ox O2 Delivery O2 Flow Rate FiO2 05/19/20 07:42 124 05/19/20 06:00 99.7 19 101/60 (74) 98 Room Air 05/18/20 21:30 2.0 I&O- Last 24 Hours up to 6 AM 05/19/20 06:00 Intake Total 1760 ml Output Total 1850 ml Balance -90 ml MICHA THIBODEAUX MD May 19, 2020 09:23
--- NOTE | 2020-05-20 09:49 | ECGEPIP ---
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
--- NOTE | 2020-05-21 14:02 | ECHO ---
DATE OF PROCEDURE: 05/19/2020 Age: 84 Gender: Male Height: 163 cm Weight: 64 kg REFERRING PHYSICIAN: Juan Smith MD INDICATION: Congestive heart failure. History of coronary artery disease. MEASUREMENTS: IVS 1.0 cm LV 5.3 cm LVPW 0.9 cm LA 4.4 cm Aorta 3.0 cm RV 3.3 cm IVC 2.1 cm Mitral E wave velocity 81 E prime septal 8.4 E prime lateral 8.9 FINDINGS: This study is of rather limited technical quality with difficult visualization. Underlying sinus tachycardia with frequent PVCs, first-degree AV block, and wide QRS complex. Left ventricle is normal size. There is extensive wall motion abnormality involving inferior and inferolateral mckeon in its basal and mid segments. These segments are essentially akinetic. Remaining LV segment appears to have relatively normal contractility, but I estimate overall EF around 30% to 35%. Right ventricle does not appear grossly dilated. There is severe biatrial enlargement. The aortic valve is heavily sclerotic with some restriction of cusp mobility, which is fairly minimal. There are also degenerative abnormalities of the mitral valve with mitral annular calcifications. Tricuspid valve appears normal. Pulmonic valve was not visualized. No pericardial effusion is noted. Inferior vena cava is dilated, but collapses with inspiration indicative of likely mildly elevated central venous pressure. The aortic root is normal. Aortic arch and abdominal aorta were not well seen. Doppler interrogation of the aortic valve reveals no insufficiency and trivial stenosis with mean gradient 6 mmHg. There is mild mitral insufficiency and at least mild possibly moderate tricuspid insufficiency. Calculated pulmonary artery pressure is around 40 mmHg corresponding to moderate pulmonary hypertension. Evaluation of diastolic function is inconclusive due to fusion of mitral E and A wave, but tissue Doppler velocities are at least mildly reduced and I estimate probably advanced diastolic dysfunction. CONCLUSIONS: 1. Study is of limited technical quality, underlying sinus tachycardia with ventricular ectopy, profound first-degree AV block and [place] QRS complex. 2. Normal LV size with inferior and inferolateral wall motion abnormality and overall estimated LVEF around 30% to 35%. 3. Dilated right ventricle. 4. Severe biatrial enlargement. 5. Aortic sclerosis, but only trivial stenosis and no insufficiency. 6. Mild mitral insufficiency. 7. [id number] tricuspid insufficiency. 8. Elevated central venous pressure and likely moderate pulmonary hypertension. [facility]
== END 2020-05-19 13:43 | disposition home or self-care (01) | DRG 292 ==
LOC: M ED 17:24 → M ED INP 21:13 → ENRESERV 21:52 → M MSPAV 22:31
PROVIDERS: ADMIT Family Medicine; ATTEND Internal Medicine
DX: I50.23 Acute on chronic systolic (congestive) heart failure (principal); I48.20 Chronic atrial fibrillation, unspecified; J44.9 Chronic obstructive pulmonary disease, unspecified; N40.0 Benign prostatic hyperplasia without lower urinary tract symptoms; E03.9 Hypothyroidism, unspecified; I25.10 Atherosclerotic heart disease of native coronary artery without angina pectoris; R55 Syncope and collapse; Z87.891 Personal history of nicotine dependence; Z79.899 Other long term (current) drug therapy; Z79.01 Long term (current) use of anticoagulants; Z66 Do not resuscitate; Z95.1 Presence of aortocoronary bypass graft

== ENCOUNTER 2021-04-16 13:28 | Inpatient (IN) | payer OTHER, MEDICARE ==
[~2021-04-16] VITALS: Ht 167.6 cm; Wt 59.3 kg
[~2021-04-16 13:28] MED LIST changes: +DALI1TAB2 PO; +GABA-283 PO; -GABA-845 PO; -LISI2.5T2 PO; +LISI2.5T9 PO; +LOSA25TA13 PO; -LOSA25TA14 PO; +OCEA0.654; +PROAAER10 INH; +VITA100093 PO
[2021-04-16] MEDS ORDERED: FLUT1BLS2 IH (13:46)
[2021-04-16] MEDS ORDERED: FUROSEMIDE 100MG/10ML VIAL (J1940) IV ONE (14:00)
[2021-04-16] MEDS ORDERED: ACETAMINOPHEN TAB 650MG DOSE (2X325MG) PO ONE (14:00)
[2021-04-16 14:58] LABS: BASO # 0.1 10^3/uL (0.0-0.2); BASO % 0.3 % (0.0-1.0); HEMATOCRIT 43.8 % (42.0-52.0); HEMOGLOBIN 13.7 g/dl (13.5-17.5); LYMPH # 1.1 10^3/uL (1.5-5.0); LYMPH % 6.5 % (24.0-44.0); MEAN CORPUSCULAR HEMOGLOBIN 31.4 pg (27.0-33.0); MEAN CORPUSCULAR HGB CONC 31.3 g/dl (32.0-36.5); MEAN CORPUSCULAR VOLUME 100.2 fl (80.0-96.0); MONO # 1.4 10^3/uL (0.0-0.8); NEUTROPHILS # 13.4 10^3/uL (1.5-8.5); NEUTROPHILS % 83.4 % (36.0-66.0); PLATELET COUNT, AUTOMATED 186 10^3/uL (150-450); RED BLOOD COUNT 4.37 10^6/uL (4.30-6.10); WHITE BLOOD COUNT 16.1 10^3/uL (4.0-10.0)
[2021-04-16 15:22] LABS: CALCIUM LEVEL 9.6 MG/DL (8.8-10.2); CREATININE FOR GFR 1.93 MG/DL (0.70-1.30); GLOMERULAR FILTRATION RATE 35.3 (>35); POTASSIUM SERUM 4.3 MEQ/L (3.5-5.1)
[2021-04-16 15:23] LABS: BILIRUBIN,DIRECT 0.7 MG/DL (0.0-0.2); BILIRUBIN,TOTAL 1.4 MG/DL (0.2-1.0); DIGOXIN LEVEL 0.8 NG/ML (0.5-2.0); THYROID STIMULATING HORMONE 0.53 uIU/ML (0.358-3.740); THYROXINE (T4) 8.6 UG/DL (4.5-12.0); TOTAL PROTEIN 6.8 GM/DL (6.4-8.2)
[2021-04-16] MEDS ORDERED: cefTRIAXone SOD 1 GM in D5W MINI-BAG PLUS 50 ML IV ONE (17:20)
[2021-04-16] MEDS ORDERED: AZITHROMYCIN INJ 500 MG, VIAL MATE ADAPTER 1 EACH in NS 250 ML IV ONE (18:00)
[2021-04-16] MEDS ORDERED: ACETAMINOPHEN TAB 650MG DOSE (2X325MG) PO PRN (18:05)
[2021-04-16] MEDS ORDERED: FURO40TA2 PO (18:59)
[2021-04-16] MEDS ORDERED: HOME MED LIST COMPLETE! XX SCH (19:10)
[2021-04-16] MEDS ORDERED: SODIUM CHLORIDE NASAL 0.65% SPRAY BTL (OCEAN) PRN (19:30)
[2021-04-16] MEDS ORDERED: ALBUTEROL 90 MCG/ACT 8GM HFA INHALER INH PRN (19:30)
[2021-04-16] MEDS: ROSUVASTATIN 10 MG TAB (CRESTOR) PO SCH (20:00)
[2021-04-16] MEDS: GABAPENTIN 300 MG CAP PO SCH (20:00)
[2021-04-16] MEDS: RIVAROXABAN 15 MG TAB (XARELTO) PO SCH (20:00)
[2021-04-16 21:00] VITALS: BP 110/59
[2021-04-16] MEDS: IPRATROPIUM 0.5MG/ALBUTEROL 2.5MG INH SOL UD 3ML (DUONEB) INH SCH (22:03)
[2021-04-16 23:00] VITALS: BP 93/50
[2021-04-17] VITALS (14 sets, daily range): BP systolic 90–125; BP diastolic 52–59
[2021-04-17] MEDS: IPRATROPIUM 0.5MG/ALBUTEROL 2.5MG INH SOL UD 3ML (DUONEB) INH SCH ×4 (02:00→19:28)
[2021-04-17] MEDS: cefTRIAXone SOD 2 GM in D5W MINI-BAG PLUS 50 ML IV SCH (05:23)
[2021-04-17] MEDS: LEVOTHYROXINE 125MCG TABLET (0.125MG) PO SCH (05:23)
[2021-04-17 05:37] LABS: HEMATOCRIT 38.4 % (42.0-52.0); HEMOGLOBIN 11.9 g/dl (13.5-17.5); MEAN CORPUSCULAR HEMOGLOBIN 31.6 pg (27.0-33.0); MEAN CORPUSCULAR VOLUME 102.1 fl (80.0-96.0); PLATELET COUNT, AUTOMATED 172 10^3/uL (150-450); RED BLOOD COUNT 3.76 10^6/uL (4.30-6.10); WHITE BLOOD COUNT 11.2 10^3/uL (4.0-10.0)
[2021-04-17 05:49] LABS: CREATININE FOR GFR 1.97 MG/DL (0.70-1.30); GLOMERULAR FILTRATION RATE 34.5 (>35); MAGNESIUM LEVEL 2.3 MG/DL (1.8-2.4); POTASSIUM SERUM 4.3 MEQ/L (3.5-5.1)
[2021-04-17] MEDS: TIOTROPIUM INHALER/CAPSULE (SPIRIVA) INH SCH (07:46)
[2021-04-17] MEDS: ADVAIR HFA 115/21MCG INHALER INH SCH ×2 (07:47→19:28)
[2021-04-17] MEDS: MULTIVITAMINS/MINERALS THERAP 1 TAB PO SCH (08:29)
[2021-04-17] MEDS: GABAPENTIN 300 MG CAP PO SCH ×3 (08:29→20:21)
[2021-04-17] MEDS: VITAMIN E 400 INTERNATIONAL UNITS CAP PO SCH (08:30)
[2021-04-17] MEDS: TAMSULOSIN 0.4 MG CAP PO SCH (08:30)
[2021-04-17] MEDS: POTASSIUM CHLORIDE 10MEQ SR TABLET PO SCH (08:30)
[2021-04-17] MEDS: DIGOXIN 0.125 MG TAB PO SCH (08:31)
[2021-04-17] MEDS: VITAMIN D 1,000 INTERNATIONAL UNITS TABLET PO SCH (08:31)
[2021-04-17] MEDS ORDERED: FUROSEMIDE 40 MG TAB PO SCH (09:00)
[2021-04-17] MEDS ORDERED: ROFLUMILAST 500 MCG PO SCH (09:00)
[2021-04-17] MEDS ORDERED: DIGOXIN INJ 0.5 MG/2 ML AMP (J1160) IV STA (13:08)
[2021-04-17] MEDS ORDERED: MIDODRINE 5 MG TAB PO SCH (13:20)
[2021-04-17] MEDS ORDERED: MIDODRINE 5 MG TAB PO ONE (13:20)
[2021-04-17 13:30] LABS: SODIUM,RANDOM URINE 21 MEQ/L; UREA NITROGEN RANDOM URINE 476 MG/DL
[2021-04-17] MEDS ORDERED: NS 500 ML IV SCH (13:30)
[2021-04-17] MEDS: AZITHROMYCIN INJ 500 MG, VIAL MATE ADAPTER 1 EACH in NS 250 ML IV SCH (18:38)
[2021-04-17] MEDS: METOPROLOL 5 MG/5 ML VIAL IV SCH ×3 (20:05→20:22)
[2021-04-17] MEDS: ROSUVASTATIN 10 MG TAB (CRESTOR) PO SCH (20:22)
[2021-04-17] MEDS: RIVAROXABAN 15 MG TAB (XARELTO) PO SCH (20:22)
[2021-04-18] VITALS (17 sets, daily range): BP systolic 96–126; BP diastolic 53–75
[2021-04-18] MEDS: IPRATROPIUM 0.5MG/ALBUTEROL 2.5MG INH SOL UD 3ML (DUONEB) INH SCH ×4 (02:02→20:00)
[2021-04-18 04:34] LABS: HEMATOCRIT 39.8 % (42.0-52.0); HEMOGLOBIN 12.1 g/dl (13.5-17.5); MEAN CORPUSCULAR HEMOGLOBIN 31.4 pg (27.0-33.0); MEAN CORPUSCULAR HGB CONC 30.4 g/dl (32.0-36.5); MEAN CORPUSCULAR VOLUME 103.4 fl (80.0-96.0); PLATELET COUNT, AUTOMATED 150 10^3/uL (150-450); RED BLOOD COUNT 3.85 10^6/uL (4.30-6.10); WHITE BLOOD COUNT 7.8 10^3/uL (4.0-10.0)
[2021-04-18 04:57] LABS: CREATININE FOR GFR 2.19 MG/DL (0.70-1.30); GLOMERULAR FILTRATION RATE 30.5 (>35); MAGNESIUM LEVEL 2.5 MG/DL (1.8-2.4); POTASSIUM SERUM 4.2 MEQ/L (3.5-5.1)
[2021-04-18] MEDS: LEVOTHYROXINE 125MCG TABLET (0.125MG) PO SCH (05:06)
[2021-04-18] MEDS: cefTRIAXone SOD 2 GM in D5W MINI-BAG PLUS 50 ML IV SCH (05:06)
[2021-04-18] MEDS ORDERED: MIDODRINE 5 MG TAB PO SCH ×2 (06:00→12:00)
[2021-04-18] MEDS: ADVAIR HFA 115/21MCG INHALER INH SCH ×2 (07:56→20:04)
[2021-04-18] MEDS: TIOTROPIUM INHALER/CAPSULE (SPIRIVA) INH SCH (07:56)
[2021-04-18] MEDS: VITAMIN D 1,000 INTERNATIONAL UNITS TABLET PO SCH (08:17)
[2021-04-18] MEDS: GABAPENTIN 300 MG CAP PO SCH ×3 (08:18→20:52)
[2021-04-18] MEDS: MULTIVITAMINS/MINERALS THERAP 1 TAB PO SCH (08:18)
[2021-04-18] MEDS: POTASSIUM CHLORIDE 10MEQ SR TABLET PO SCH (08:19)
[2021-04-18] MEDS: TAMSULOSIN 0.4 MG CAP PO SCH (08:19)
[2021-04-18] MEDS: DIGOXIN 0.125 MG TAB PO SCH (08:20)
[2021-04-18] MEDS: VITAMIN E 400 INTERNATIONAL UNITS CAP PO SCH (08:29)
[2021-04-18] MEDS: guaiFENesin ER 600 MG TAB PO SCH ×2 (12:19→20:53)
[2021-04-18] MEDS: MIDODRINE 5 MG TAB PO SCH ×2 (12:20→16:30)
[2021-04-18] MEDS ORDERED: METOPROLOL 5 MG/5 ML VIAL IV STA (14:18)
[2021-04-18 17:19] LABS: MYCOPLASMA PNEUMONIAE IgG 694 U/mL (0-99); MYCOPLASMA PNEUMONIAE IgM <770 U/mL (0-769)
[2021-04-18] MEDS: AZITHROMYCIN INJ 500 MG, VIAL MATE ADAPTER 1 EACH in NS 250 ML IV SCH (17:55)
[2021-04-18] MEDS: RIVAROXABAN 15 MG TAB (XARELTO) PO SCH (20:52)
[2021-04-18] MEDS: ROSUVASTATIN 10 MG TAB (CRESTOR) PO SCH (20:52)
[2021-04-19] VITALS (7 sets, daily range): BP systolic 106–119; BP diastolic 53–71
[2021-04-19] MEDS: IPRATROPIUM 0.5MG/ALBUTEROL 2.5MG INH SOL UD 3ML (DUONEB) INH SCH ×4 (01:06→19:27)
[2021-04-19 05:52] LABS: HEMATOCRIT 35.9 % (42.0-52.0); HEMOGLOBIN 10.8 g/dl (13.5-17.5); MEAN CORPUSCULAR HEMOGLOBIN 30.9 pg (27.0-33.0); MEAN CORPUSCULAR HGB CONC 30.1 g/dl (32.0-36.5); MEAN CORPUSCULAR VOLUME 102.6 fl (80.0-96.0); PLATELET COUNT, AUTOMATED 159 10^3/uL (150-450); WHITE BLOOD COUNT 7.3 10^3/uL (4.0-10.0)
[2021-04-19 06:07] LABS: CALCIUM LEVEL 9.3 MG/DL (8.8-10.2); CREATININE FOR GFR 2.65 MG/DL (0.70-1.30); GLOMERULAR FILTRATION RATE 24.5 (>35); MAGNESIUM LEVEL 2.6 MG/DL (1.8-2.4); POTASSIUM SERUM 4.8 MEQ/L (3.5-5.1)
[2021-04-19] MEDS: LEVOTHYROXINE 125MCG TABLET (0.125MG) PO SCH (06:14)
[2021-04-19] MEDS: cefTRIAXone SOD 2 GM in D5W MINI-BAG PLUS 50 ML IV SCH (06:14)
[2021-04-19] MEDS: ADVAIR HFA 115/21MCG INHALER INH SCH ×2 (07:32→19:26)
[2021-04-19] MEDS: TIOTROPIUM INHALER/CAPSULE (SPIRIVA) INH SCH (07:32)
[2021-04-19] MEDS: MULTIVITAMINS/MINERALS THERAP 1 TAB PO SCH (09:35)
[2021-04-19] MEDS: GABAPENTIN 300 MG CAP PO SCH ×3 (09:35→21:30)
[2021-04-19] MEDS: MIDODRINE 5 MG TAB PO SCH ×3 (09:35→16:23)
[2021-04-19] MEDS: guaiFENesin ER 600 MG TAB PO SCH ×2 (09:36→21:29)
[2021-04-19] MEDS: TAMSULOSIN 0.4 MG CAP PO SCH (09:36)
[2021-04-19] MEDS: DIGOXIN 0.125 MG TAB PO SCH (09:36)
[2021-04-19] MEDS: POTASSIUM CHLORIDE 10MEQ SR TABLET PO SCH (09:36)
[2021-04-19] MEDS: VITAMIN E 400 INTERNATIONAL UNITS CAP PO SCH (09:37)
[2021-04-19] MEDS: VITAMIN D 1,000 INTERNATIONAL UNITS TABLET PO SCH (09:37)
[2021-04-19] MEDS: FUROSEMIDE 40MG/4ML VIAL (J1940) IV SCH ×2 (12:16→20:00)
[2021-04-19] MEDS: DOXYCYCLINE HYCLATE 100MG TABLET PO SCH ×2 (14:55→21:30)
[2021-04-19 17:10] LABS: BODY FLUID CULTURE Not indicated. (.); ORGANISM ID Not indicated. (.); SPECIMEN SOURCE Urine (.); URINE STREP PNEUMONIAE ANTIGEN Negative (Negative)
[2021-04-19] MEDS ORDERED: AZITHROMYCIN 250MG TABLET PO SCH (18:00)
[2021-04-19] MEDS: ROSUVASTATIN 10 MG TAB (CRESTOR) PO SCH (21:29)
[2021-04-19] MEDS: RIVAROXABAN 15 MG TAB (XARELTO) PO SCH (21:30)
[2021-04-20] VITALS (9 sets, daily range): BP systolic 99–139; BP diastolic 53–60
[2021-04-20] MEDS: IPRATROPIUM 0.5MG/ALBUTEROL 2.5MG INH SOL UD 3ML (DUONEB) INH SCH ×4 (02:00→19:16)
[2021-04-20] MEDS: FUROSEMIDE 40MG/4ML VIAL (J1940) IV SCH ×2 (04:00→13:13)
[2021-04-20 05:23] LABS: HEMOGLOBIN 11.6 g/dl (13.5-17.5); MEAN CORPUSCULAR HEMOGLOBIN 31.5 pg (27.0-33.0); MEAN CORPUSCULAR HGB CONC 30.5 g/dl (32.0-36.5); MEAN CORPUSCULAR VOLUME 103.3 fl (80.0-96.0); PLATELET COUNT, AUTOMATED 171 10^3/uL (150-450); RED BLOOD COUNT 3.68 10^6/uL (4.30-6.10)
[2021-04-20] MEDS: LEVOTHYROXINE 125MCG TABLET (0.125MG) PO SCH (05:28)
[2021-04-20 05:42] LABS: CALCIUM LEVEL 9.7 MG/DL (8.8-10.2); CREATININE FOR GFR 3.06 MG/DL (0.70-1.30); GLOMERULAR FILTRATION RATE 20.7 (>35); MAGNESIUM LEVEL 2.5 MG/DL (1.8-2.4); POTASSIUM SERUM 4.6 MEQ/L (3.5-5.1)
[2021-04-20] MEDS: ADVAIR HFA 115/21MCG INHALER INH SCH ×2 (07:33→19:16)
[2021-04-20] MEDS: TIOTROPIUM INHALER/CAPSULE (SPIRIVA) INH SCH (07:33)
[2021-04-20] MEDS: MIDODRINE 5 MG TAB PO SCH ×3 (08:00→16:11)
[2021-04-20] MEDS: CEFDINIR 300 MG CAP (OMNICEF) PO SCH (08:47)
[2021-04-20] MEDS: POTASSIUM CHLORIDE 10MEQ SR TABLET PO SCH (08:47)
[2021-04-20] MEDS: GABAPENTIN 300 MG CAP PO SCH ×3 (08:48→20:09)
[2021-04-20] MEDS: TAMSULOSIN 0.4 MG CAP PO SCH (08:48)
[2021-04-20] MEDS: VITAMIN E 400 INTERNATIONAL UNITS CAP PO SCH (08:48)
[2021-04-20] MEDS: DOXYCYCLINE HYCLATE 100MG TABLET PO SCH ×2 (08:48→20:09)
[2021-04-20] MEDS: MULTIVITAMINS/MINERALS THERAP 1 TAB PO SCH (08:48)
[2021-04-20] MEDS: VITAMIN D 1,000 INTERNATIONAL UNITS TABLET PO SCH (08:48)
[2021-04-20] MEDS: guaiFENesin ER 600 MG TAB PO SCH ×2 (08:48→20:09)
[2021-04-20] MEDS: DIGOXIN 0.125 MG TAB PO SCH (08:49)
[2021-04-20] MEDS: ROSUVASTATIN 10 MG TAB (CRESTOR) PO SCH (20:09)
[2021-04-20] MEDS: RIVAROXABAN 15 MG TAB (XARELTO) PO SCH (20:09)
[2021-04-21] VITALS: BP 121/61
[2021-04-21] MEDS: IPRATROPIUM 0.5MG/ALBUTEROL 2.5MG INH SOL UD 3ML (DUONEB) INH SCH ×4 (01:26→17:45)
[2021-04-21 04:00] VITALS: BP 112/58
[2021-04-21 05:40] LABS: HEMATOCRIT 36.4 % (42.0-52.0); MEAN CORPUSCULAR HEMOGLOBIN 30.8 pg (27.0-33.0); MEAN CORPUSCULAR HGB CONC 30.2 g/dl (32.0-36.5); PLATELET COUNT, AUTOMATED 191 10^3/uL (150-450); RED BLOOD COUNT 3.57 10^6/uL (4.30-6.10); WHITE BLOOD COUNT 8.4 10^3/uL (4.0-10.0)
[2021-04-21 06:02] LABS: CALCIUM LEVEL 9.2 MG/DL (8.8-10.2); CREATININE FOR GFR 3.74 MG/DL (0.70-1.30); GLOMERULAR FILTRATION RATE 16.5 (>35); MAGNESIUM LEVEL 2.4 MG/DL (1.8-2.4); POTASSIUM SERUM 4.1 MEQ/L (3.5-5.1)
[2021-04-21] MEDS: LEVOTHYROXINE 125MCG TABLET (0.125MG) PO SCH (06:31)
[2021-04-21] MEDS: TIOTROPIUM INHALER/CAPSULE (SPIRIVA) INH SCH (07:53)
[2021-04-21] MEDS: ADVAIR HFA 115/21MCG INHALER INH SCH ×2 (07:53→17:45)
[2021-04-21 08:00] VITALS: BP 118/58
[2021-04-21] MEDS: MIDODRINE 5 MG TAB PO SCH ×3 (08:00→15:55)
[2021-04-21] MEDS: GABAPENTIN 300 MG CAP PO SCH ×3 (08:48→20:48)
[2021-04-21] MEDS: MULTIVITAMINS/MINERALS THERAP 1 TAB PO SCH (08:48)
[2021-04-21] MEDS: CEFDINIR 300 MG CAP (OMNICEF) PO SCH (08:48)
[2021-04-21] MEDS: POTASSIUM CHLORIDE 10MEQ SR TABLET PO SCH (08:49)
[2021-04-21] MEDS: VITAMIN D 1,000 INTERNATIONAL UNITS TABLET PO SCH (08:49)
[2021-04-21] MEDS: VITAMIN E 400 INTERNATIONAL UNITS CAP PO SCH (08:50)
[2021-04-21] MEDS: DOXYCYCLINE HYCLATE 100MG TABLET PO SCH ×2 (08:50→20:48)
[2021-04-21] MEDS: guaiFENesin ER 600 MG TAB PO SCH ×2 (08:50→20:48)
[2021-04-21] MEDS: TAMSULOSIN 0.4 MG CAP PO SCH (08:50)
[2021-04-21] MEDS: DIGOXIN 0.125 MG TAB PO SCH (08:51)
[2021-04-21 12:00] VITALS: BP 105/67
[2021-04-21 16:00] VITALS: BP 106/55
[2021-04-21 20:00] VITALS: BP 114/58
[2021-04-21] MEDS: ROSUVASTATIN 10 MG TAB (CRESTOR) PO SCH (20:47)
[2021-04-21] MEDS: RIVAROXABAN 15 MG TAB (XARELTO) PO SCH (20:48)
[2021-04-22] VITALS: BP 119/60
[2021-04-22] MEDS: IPRATROPIUM 0.5MG/ALBUTEROL 2.5MG INH SOL UD 3ML (DUONEB) INH SCH ×4 (01:46→19:56)
[2021-04-22 04:00] VITALS: BP 123/67
[2021-04-22] MEDS: LEVOTHYROXINE 125MCG TABLET (0.125MG) PO SCH (06:06)
[2021-04-22] MEDS: ADVAIR HFA 115/21MCG INHALER INH SCH ×2 (07:47→19:56)
[2021-04-22] MEDS: TIOTROPIUM INHALER/CAPSULE (SPIRIVA) INH SCH (07:49)
[2021-04-22 08:00] VITALS: BP 102/56
[2021-04-22 09:00] LABS: HEMOGLOBIN 12.1 g/dl (13.5-17.5); MEAN CORPUSCULAR HEMOGLOBIN 31.3 pg (27.0-33.0); MEAN CORPUSCULAR VOLUME 100.8 fl (80.0-96.0); PLATELET COUNT, AUTOMATED 220 10^3/uL (150-450); RED BLOOD COUNT 3.87 10^6/uL (4.30-6.10); WHITE BLOOD COUNT 9.1 10^3/uL (4.0-10.0)
[2021-04-22] MEDS: CEFDINIR 300 MG CAP (OMNICEF) PO SCH (09:07)
[2021-04-22] MEDS: VITAMIN E 400 INTERNATIONAL UNITS CAP PO SCH (09:07)
[2021-04-22] MEDS: GABAPENTIN 300 MG CAP PO SCH ×3 (09:07→20:19)
[2021-04-22] MEDS: MIDODRINE 5 MG TAB PO SCH ×3 (09:07→17:23)
[2021-04-22] MEDS: MULTIVITAMINS/MINERALS THERAP 1 TAB PO SCH (09:07)
[2021-04-22] MEDS: DIGOXIN 0.125 MG TAB PO SCH (09:08)
[2021-04-22] MEDS: TAMSULOSIN 0.4 MG CAP PO SCH (09:08)
[2021-04-22] MEDS: VITAMIN D 1,000 INTERNATIONAL UNITS TABLET PO SCH (09:08)
[2021-04-22] MEDS: POTASSIUM CHLORIDE 10MEQ SR TABLET PO SCH (09:08)
[2021-04-22] MEDS: DOXYCYCLINE HYCLATE 100MG TABLET PO SCH ×2 (09:09→20:19)
[2021-04-22] MEDS: guaiFENesin ER 600 MG TAB PO SCH ×2 (09:09→20:19)
[2021-04-22 09:18] LABS: CALCIUM LEVEL 9.9 MG/DL (8.8-10.2); CREATININE FOR GFR 3.73 MG/DL (0.70-1.30); GLOMERULAR FILTRATION RATE 16.5 (>35); POTASSIUM SERUM 4.1 MEQ/L (3.5-5.1)
[2021-04-22 16:00] VITALS: BP 96/59
[2021-04-22] MEDS: RIVAROXABAN 15 MG TAB (XARELTO) PO SCH (20:19)
[2021-04-22] MEDS: ROSUVASTATIN 10 MG TAB (CRESTOR) PO SCH (20:19)
[2021-04-22 22:00] VITALS: BP 105/60
[2021-04-23 06:00] VITALS: BP 100/60
[2021-04-23] MEDS: LEVOTHYROXINE 125MCG TABLET (0.125MG) PO SCH (06:35)
[2021-04-23 07:03] LABS: HEMATOCRIT 39.7 % (42.0-52.0); HEMOGLOBIN 12.4 g/dl (13.5-17.5); MEAN CORPUSCULAR HEMOGLOBIN 31.4 pg (27.0-33.0); MEAN CORPUSCULAR HGB CONC 31.2 g/dl (32.0-36.5); MEAN CORPUSCULAR VOLUME 100.5 fl (80.0-96.0); PLATELET COUNT, AUTOMATED 251 10^3/uL (150-450); RED BLOOD COUNT 3.95 10^6/uL (4.30-6.10); WHITE BLOOD COUNT 8.7 10^3/uL (4.0-10.0)
[2021-04-23 07:24] LABS: CREATININE FOR GFR 3.23 MG/DL (0.70-1.30); GLOMERULAR FILTRATION RATE 19.5 (>35); POTASSIUM SERUM 4.3 MEQ/L (3.5-5.1)
[2021-04-23] MEDS: TIOTROPIUM INHALER/CAPSULE (SPIRIVA) INH SCH (07:59)
[2021-04-23] MEDS: IPRATROPIUM 0.5MG/ALBUTEROL 2.5MG INH SOL UD 3ML (DUONEB) INH SCH ×3 (07:59→13:37)
[2021-04-23] MEDS: ADVAIR HFA 115/21MCG INHALER INH SCH (07:59)
[2021-04-23] MEDS: TAMSULOSIN 0.4 MG CAP PO SCH (09:31)
[2021-04-23] MEDS: MULTIVITAMINS/MINERALS THERAP 1 TAB PO SCH (09:31)
[2021-04-23] MEDS: GABAPENTIN 300 MG CAP PO SCH (09:31)
[2021-04-23] MEDS: VITAMIN E 400 INTERNATIONAL UNITS CAP PO SCH (09:31)
[2021-04-23] MEDS: VITAMIN D 1,000 INTERNATIONAL UNITS TABLET PO SCH (09:32)
[2021-04-23] MEDS: guaiFENesin ER 600 MG TAB PO SCH (09:32)
[2021-04-23] MEDS: POTASSIUM CHLORIDE 10MEQ SR TABLET PO SCH (09:32)
[2021-04-23] MEDS: CEFDINIR 300 MG CAP (OMNICEF) PO SCH (09:32)
[2021-04-23] MEDS: DOXYCYCLINE HYCLATE 100MG TABLET PO SCH (09:32)
[2021-04-23] MEDS: MIDODRINE 5 MG TAB PO SCH ×2 (09:33→12:06)
[2021-04-23] MEDS: DIGOXIN 0.125 MG TAB PO SCH (09:33)
[2021-04-23] MEDS ORDERED: CEFD300CAP PO (11:40)
[2021-04-23] MEDS ORDERED: MUCI600T31 PO (11:40)
[2021-04-23] MEDS ORDERED: DOXY100T PO (11:40)
[2021-04-23] MEDS ORDERED: MIDO10TA PO (11:47)
[2021-04-23 14:00] VITALS: BP 106/59
== END 2021-04-23 16:01 | disposition home or self-care (01) | DRG 871 ==
LOC: M ED 13:28 → M ED INP 18:01 → M ICU 21:30 → OBSVTOIN 04-17 07:50 → M PCU 04-18 16:51 → M MS4PR 04-22 21:42
PROVIDERS: ADMIT Internal Medicine; ATTEND Internal Medicine
DX: A41.9 Sepsis, unspecified organism (principal); I50.23 Acute on chronic systolic (congestive) heart failure; J18.9 Pneumonia, unspecified organism; N17.9 Acute kidney failure, unspecified; I48.20 Chronic atrial fibrillation, unspecified; J44.0 Chronic obstructive pulmonary disease with (acute) lower respiratory infection; Z99.81 Dependence on supplemental oxygen; E03.9 Hypothyroidism, unspecified; N40.0 Benign prostatic hyperplasia without lower urinary tract symptoms; Z95.5 Presence of coronary angioplasty implant and graft; I25.10 Atherosclerotic heart disease of native coronary artery without angina pectoris; Z91.14 Patient's other noncompliance with medication regimen; Z66 Do not resuscitate; Z79.01 Long term (current) use of anticoagulants; Z79.899 Other long term (current) drug therapy

== ENCOUNTER 2022-01-16 10:07 | Inpatient (IN) | payer MEDICARE, OTHER ==
[~2022-01-16] VITALS: Ht 167.6 cm; Wt 64.0 kg
[~2022-01-16 10:07] MED LIST changes: +ALBU6.7H6 INH; +CEFD300CAP PO; +CLOP75TA99 PO; +FLUT1BLS2 INH; +MIDO10TA PO; +MUCI600T31 PO; -PLAV1TAB2 PO; -PROV108A INH
[2022-01-16] MEDS ORDERED: cefTRIAXone SOD 2 GM in D5W MINI-BAG PLUS 50 ML IV ONE (10:40)
[2022-01-16 10:53] LABS: VENOUS BASE EXCESS 2.6 (-2.0-2.0); VENOUS HCO3 29.7 MEQ/L (23.0-27.0); VENOUS O2 SATURATION 54.4 % (60.0-80.0); VENOUS PARTIAL PRESSURE CO2 56.5 mmHg (38.0-50.0); VENOUS PARTIAL PRESSURE O2 29.5 mmHg (30.0-50.0); VENOUS PH 7.338 UNITS (7.330-7.430); VENOUS STANDARD HCO3 25.8 MEQ/L; VENOUS TOTAL CO2 31.4 MEQ/L (24.0-28.0)
[2022-01-16 11:06] LABS: BASO # 0.1 10^3/uL (0.0-0.2); BASO % 0.3 % (0.0-1.0); EOS % 0.1 % (0.0-3.0); HEMOGLOBIN 12.1 g/dl (13.5-17.5); LYMPH % 5.8 % (24.0-44.0); MEAN CORPUSCULAR HEMOGLOBIN 31.7 pg (27.0-33.0); MEAN CORPUSCULAR VOLUME 102.1 fl (80.0-96.0); MONO # 0.7 10^3/uL (0.0-0.8); MONO % 4.1 % (2.0-8.0); NEUTROPHILS % 88.6 % (36.0-66.0); PLATELET COUNT, AUTOMATED 162 10^3/uL (150-450); RED BLOOD COUNT 3.82 10^6/uL (4.30-6.10)
[2022-01-16 11:25] LABS: ALBUMIN 3.4 G/DL (3.2-5.2); BILIRUBIN,DIRECT 0.6 MG/DL (<0.4); BILIRUBIN,TOTAL 1.2 MG/DL (0.3-1.2); CALCIUM LEVEL 9.3 MG/DL (8.3-10.6); CK-MB VALUE MASS 1.5 NG/ML (<3.6); CREATININE FOR GFR 2.52 MG/DL (0.70-1.30); GLOMERULAR FILTRATION RATE 25.9 (>35); MB/CK RELATIVE INDEX 3.12 (< OR =4); POTASSIUM SERUM 4.1 MMOL/L (3.5-5.1); TOTAL PROTEIN 6.6 G/DL (5.7-8.2)
[2022-01-16 11:28] LABS: THYROID STIMULATING HORMONE 3.48 uIU/ML (0.55-4.78)
[2022-01-16] MEDS: DOXYCYCLINE HYCLATE 100 MG in D5W MINI-BAG PLUS 100 ML IV SCH (14:01)
[2022-01-16 15:00] VITALS: BP 111/58
[2022-01-16] MEDS ORDERED: PROA1AER2 INH (15:01)
[2022-01-16] MEDS ORDERED: DIGO0.123 PO (15:02)
[2022-01-16] MEDS ORDERED: MIDO10TA PO (15:06)
[2022-01-16] MEDS ORDERED: ENTR1TAB PO (15:06)
[2022-01-16] MEDS ORDERED: HOME MED LIST COMPLETE! XX SCH (15:10)
[2022-01-16] MEDS ORDERED: SODIUM CHLORIDE NASAL 0.65% SPRAY BTL (OCEAN) PRN (15:55)
[2022-01-16 17:50] LABS: INR 1.5; PROTHROMBIN TIME 18.4 SECONDS (12.5-14.5)
[2022-01-16 17:51] LABS: PARTIAL THROMBOPLASTIN TIME 38.2 SECONDS (24.8-34.2)
[2022-01-16 18:08] LABS: CALCIUM LEVEL 8.6 MG/DL (8.3-10.6); CREATININE FOR GFR 2.45 MG/DL (0.70-1.30); DIGOXIN LEVEL 0.6 NG/ML (0.8-2.0); GLOMERULAR FILTRATION RATE 26.8 (>35); POTASSIUM SERUM 4.1 MMOL/L (3.5-5.1)
[2022-01-16] MEDS: MIDODRINE 5 MG TAB PO SCH (18:21)
[2022-01-16] MEDS ORDERED: FUROSEMIDE 100MG/10ML VIAL (J1940) IV ONE (19:10)
[2022-01-16] MEDS ORDERED: ALBUTEROL SULFATE 2.5 MG/0.5 ML INH NEB SOLN NEB PRN (19:10)
[2022-01-16 20:00] VITALS: BP_SYST 90; BP_DIAS 52; BP_DIAS 72
[2022-01-16] MEDS: ROSUVASTATIN 10 MG TAB (CRESTOR) PO SCH (21:47)
[2022-01-17] VITALS (7 sets, daily range): BP systolic 84–110; BP diastolic 40–57
[2022-01-17] MEDS ORDERED: PIPERACILLIN/TAZOBACTAM SOD 3.375 GM in D5W MINI-BAG PLUS 50 ML IV SCH (00:05)
[2022-01-17] MEDS: ADVAIR HFA 230/21MCG INHALER INH SCH ×3 (00:24→20:50)
[2022-01-17] MEDS: DOXYCYCLINE HYCLATE 100 MG in D5W MINI-BAG PLUS 100 ML IV SCH (01:05)
[2022-01-17 05:23] LABS: BASO # 0.1 10^3/uL (0.0-0.2); BASO % 0.4 % (0.0-1.0); EOS # 0.1 10^3/uL (0.0-0.5); EOS % 0.6 % (0.0-3.0); LYMPH # 1.1 10^3/uL (1.5-5.0); LYMPH % 9.6 % (24.0-44.0); MEAN CORPUSCULAR HEMOGLOBIN 31.2 pg (27.0-33.0); MEAN CORPUSCULAR HGB CONC 30.6 g/dl (32.0-36.5); MEAN CORPUSCULAR VOLUME 101.9 fl (80.0-96.0); MONO # 1.1 10^3/uL (0.0-0.8); MONO % 8.8 % (2.0-8.0); NEUTROPHILS # 9.6 10^3/uL (1.5-8.5); PLATELET COUNT, AUTOMATED 141 10^3/uL (150-450); RED BLOOD COUNT 3.24 10^6/uL (4.30-6.10); WHITE BLOOD COUNT 11.9 10^3/uL (4.0-10.0)
[2022-01-17 05:33] LABS: HEMOGLOBIN 10.1 g/dl (13.5-17.5)
[2022-01-17 06:02] LABS: CALCIUM LEVEL 8.6 MG/DL (8.3-10.6); CREATININE FOR GFR 2.71 MG/DL (0.70-1.30); GLOMERULAR FILTRATION RATE 23.8 (>35); POTASSIUM SERUM 4.2 MMOL/L (3.5-5.1)
[2022-01-17] MEDS: TIOTROPIUM INHALER/CAPSULE (SPIRIVA) INH SCH (07:10)
[2022-01-17] MEDS: TAMSULOSIN 0.4 MG CAP PO SCH (09:06)
[2022-01-17] MEDS: MIDODRINE 5 MG TAB PO SCH ×3 (09:06→17:08)
[2022-01-17] MEDS: APIXABAN 2.5 MG TAB (ELIQUIS) PO SCH ×2 (09:07→20:47)
[2022-01-17] MEDS: LEVOTHYROXINE 125MCG TABLET (0.125MG) PO SCH (09:08)
[2022-01-17] MEDS: DIGOXIN 0.125 MG TAB PO SCH (09:10)
[2022-01-17] MEDS: cefTRIAXone SOD 2 GM in D5W MINI-BAG PLUS 50 ML IV SCH (11:56)
[2022-01-17] MEDS: DOXYCYCLINE HYCLATE 100MG TABLET PO SCH ×2 (11:59→20:47)
[2022-01-17] MEDS: guaiFENesin 200 MG TAB PO PRN ×3 (12:00→23:18)
[2022-01-17] MEDS: ROSUVASTATIN 10 MG TAB (CRESTOR) PO SCH (20:46)
[2022-01-17] MEDS: GABAPENTIN 300 MG CAP PO SCH (21:25)
[2022-01-18] VITALS (8 sets, daily range): BP systolic 93–106; BP diastolic 50–60; O2SAT 93
[2022-01-18 05:47] LABS: BASO % 0.5 % (0.0-1.0); EOS # 0.1 10^3/uL (0.0-0.5); EOS % 1.4 % (0.0-3.0); HEMATOCRIT 33.6 % (42.0-52.0); HEMOGLOBIN 10.3 g/dl (13.5-17.5); LYMPH # 1.2 10^3/uL (1.5-5.0); LYMPH % 13.7 % (24.0-44.0); MEAN CORPUSCULAR HEMOGLOBIN 31.3 pg (27.0-33.0); MEAN CORPUSCULAR HGB CONC 30.7 g/dl (32.0-36.5); MEAN CORPUSCULAR VOLUME 102.1 fl (80.0-96.0); MONO # 0.8 10^3/uL (0.0-0.8); MONO % 9.4 % (2.0-8.0); NEUTROPHILS # 6.4 10^3/uL (1.5-8.5); NEUTROPHILS % 74.8 % (36.0-66.0); PLATELET COUNT, AUTOMATED 154 10^3/uL (150-450); RED BLOOD COUNT 3.29 10^6/uL (4.30-6.10); WHITE BLOOD COUNT 8.6 10^3/uL (4.0-10.0)
[2022-01-18 06:12] LABS: CALCIUM LEVEL 8.8 MG/DL (8.3-10.6); CREATININE FOR GFR 2.56 MG/DL (0.70-1.30); GLOMERULAR FILTRATION RATE 25.4 (>35)
[2022-01-18 06:57] LABS: DIGOXIN LEVEL 0.6 NG/ML (0.8-2.0)
[2022-01-18] MEDS: ADVAIR HFA 230/21MCG INHALER INH SCH ×2 (07:48→19:54)
[2022-01-18] MEDS: TIOTROPIUM INHALER/CAPSULE (SPIRIVA) INH SCH (07:49)
[2022-01-18] MEDS: LEVOTHYROXINE 125MCG TABLET (0.125MG) PO SCH (09:04)
[2022-01-18] MEDS: DOXYCYCLINE HYCLATE 100MG TABLET PO SCH ×2 (09:05→20:36)
[2022-01-18] MEDS: APIXABAN 2.5 MG TAB (ELIQUIS) PO SCH ×2 (09:05→20:36)
[2022-01-18] MEDS: GABAPENTIN 300 MG CAP PO SCH ×2 (09:05→20:36)
[2022-01-18] MEDS: TAMSULOSIN 0.4 MG CAP PO SCH (09:05)
[2022-01-18] MEDS: DIGOXIN 0.125 MG TAB PO SCH (09:05)
[2022-01-18] MEDS: MIDODRINE 5 MG TAB PO SCH ×3 (09:06→17:51)
[2022-01-18] MEDS: cefTRIAXone SOD 2 GM in D5W MINI-BAG PLUS 50 ML IV SCH (12:21)
[2022-01-18] MEDS: ROSUVASTATIN 10 MG TAB (CRESTOR) PO SCH (20:36)
[2022-01-18] MEDS: guaiFENesin 200 MG TAB PO PRN (20:43)
[2022-01-19] VITALS (8 sets, daily range): BP systolic 96–118; BP diastolic 50–62; O2SAT 94
[2022-01-19 03:58] LABS: BASO # 0.1 10^3/uL (0.0-0.2); BASO % 0.8 % (0.0-1.0); EOS # 0.2 10^3/uL (0.0-0.5); EOS % 2.7 % (0.0-3.0); HEMOGLOBIN 10.3 g/dl (13.5-17.5); LYMPH # 1.3 10^3/uL (1.5-5.0); LYMPH % 20.4 % (24.0-44.0); MEAN CORPUSCULAR HEMOGLOBIN 31.4 pg (27.0-33.0); MEAN CORPUSCULAR HGB CONC 31.2 g/dl (32.0-36.5); MEAN CORPUSCULAR VOLUME 100.6 fl (80.0-96.0); MONO # 0.7 10^3/uL (0.0-0.8); MONO % 11.5 % (2.0-8.0); NEUTROPHILS # 4.1 10^3/uL (1.5-8.5); NEUTROPHILS % 64.3 % (36.0-66.0); PLATELET COUNT, AUTOMATED 149 10^3/uL (150-450); RED BLOOD COUNT 3.28 10^6/uL (4.30-6.10); WHITE BLOOD COUNT 6.4 10^3/uL (4.0-10.0)
[2022-01-19 04:19] LABS: CREATININE FOR GFR 2.5 MG/DL (0.70-1.30); GLOMERULAR FILTRATION RATE 26.1 (>35); POTASSIUM SERUM 3.7 MMOL/L (3.5-5.1)
[2022-01-19] MEDS: ADVAIR HFA 230/21MCG INHALER INH SCH ×2 (07:24→19:59)
[2022-01-19] MEDS: TIOTROPIUM INHALER/CAPSULE (SPIRIVA) INH SCH (07:24)
[2022-01-19] MEDS: TAMSULOSIN 0.4 MG CAP PO SCH (08:41)
[2022-01-19] MEDS: APIXABAN 2.5 MG TAB (ELIQUIS) PO SCH ×2 (08:41→20:58)
[2022-01-19] MEDS: MIDODRINE 5 MG TAB PO SCH ×3 (08:42→18:00)
[2022-01-19] MEDS: LEVOTHYROXINE 125MCG TABLET (0.125MG) PO SCH (08:42)
[2022-01-19] MEDS: DIGOXIN 0.125 MG TAB PO SCH (08:42)
[2022-01-19] MEDS: DOXYCYCLINE HYCLATE 100MG TABLET PO SCH ×2 (08:42→20:59)
[2022-01-19] MEDS: GABAPENTIN 300 MG CAP PO SCH ×2 (08:42→20:58)
[2022-01-19] MEDS ORDERED: FUROSEMIDE 100MG/10ML VIAL (J1940) IV ONE (11:00)
[2022-01-19] MEDS: cefTRIAXone SOD 2 GM in D5W MINI-BAG PLUS 50 ML IV SCH (12:07)
[2022-01-19] MEDS: ROSUVASTATIN 10 MG TAB (CRESTOR) PO SCH (20:59)
[2022-01-20] VITALS (7 sets, daily range): BP systolic 98–132; BP diastolic 50–78; O2SAT 94
[2022-01-20 04:51] LABS: BASO # 0.1 10^3/uL (0.0-0.2); EOS # 0.3 10^3/uL (0.0-0.5); HEMATOCRIT 32.9 % (42.0-52.0); HEMOGLOBIN 10.1 g/dl (13.5-17.5); LYMPH # 1.1 10^3/uL (1.5-5.0); LYMPH % 18.1 % (24.0-44.0); MEAN CORPUSCULAR HEMOGLOBIN 31.5 pg (27.0-33.0); MEAN CORPUSCULAR HGB CONC 30.7 g/dl (32.0-36.5); MEAN CORPUSCULAR VOLUME 102.5 fl (80.0-96.0); MONO # 0.9 10^3/uL (0.0-0.8); MONO % 14.7 % (2.0-8.0); NEUTROPHILS # 3.8 10^3/uL (1.5-8.5); PLATELET COUNT, AUTOMATED 149 10^3/uL (150-450); RED BLOOD COUNT 3.21 10^6/uL (4.30-6.10); WHITE BLOOD COUNT 6.2 10^3/uL (4.0-10.0)
[2022-01-20 05:26] LABS: CALCIUM LEVEL 8.8 MG/DL (8.3-10.6); CREATININE FOR GFR 2.73 MG/DL (0.70-1.30); GLOMERULAR FILTRATION RATE 23.6 (>35); POTASSIUM SERUM 4.3 MMOL/L (3.5-5.1)
[2022-01-20] MEDS: ADVAIR HFA 230/21MCG INHALER INH SCH ×2 (06:01→20:30)
[2022-01-20] MEDS: TIOTROPIUM INHALER/CAPSULE (SPIRIVA) INH SCH (06:01)
[2022-01-20] MEDS: LEVOTHYROXINE 125MCG TABLET (0.125MG) PO SCH (08:05)
[2022-01-20] MEDS: DIGOXIN 0.125 MG TAB PO SCH (08:05)
[2022-01-20] MEDS: TAMSULOSIN 0.4 MG CAP PO SCH (08:05)
[2022-01-20] MEDS: GABAPENTIN 300 MG CAP PO SCH ×2 (08:05→20:05)
[2022-01-20] MEDS: APIXABAN 2.5 MG TAB (ELIQUIS) PO SCH ×2 (08:05→20:05)
[2022-01-20] MEDS: DOXYCYCLINE HYCLATE 100MG TABLET PO SCH ×2 (08:06→20:05)
[2022-01-20] MEDS: MIDODRINE 5 MG TAB PO SCH ×3 (08:06→17:25)
[2022-01-20] MEDS ORDERED: METOPROLOL SUCC *XL* 25MG TAB (TopROL *XL*) PO SCH (11:15)
[2022-01-20] MEDS: cefTRIAXone SOD 2 GM in D5W MINI-BAG PLUS 50 ML IV SCH (13:23)
[2022-01-20] MEDS ORDERED: RIVAROXABAN 15MG TAB (XARELTO) PO SCH (18:00)
[2022-01-20] MEDS: ROSUVASTATIN 10 MG TAB (CRESTOR) PO SCH (20:05)
[2022-01-20] MEDS: METOPROLOL SUCC *XL* 12.5MG PER 1/2 TAB (TopROL *XL*) PO SCH (20:06)
[2022-01-21 06:00] VITALS: BP 104/67
[2022-01-21 06:09] LABS: BASO # 0.1 10^3/uL (0.0-0.2); BASO % 0.8 % (0.0-1.0); EOS # 0.2 10^3/uL (0.0-0.5); EOS % 3.1 % (0.0-3.0); HEMATOCRIT 34.9 % (42.0-52.0); HEMOGLOBIN 10.6 g/dl (13.5-17.5); LYMPH # 1.3 10^3/uL (1.5-5.0); MEAN CORPUSCULAR HGB CONC 30.4 g/dl (32.0-36.5); MONO # 1.1 10^3/uL (0.0-0.8); NEUTROPHILS # 4.5 10^3/uL (1.5-8.5); NEUTROPHILS % 62.8 % (36.0-66.0); PLATELET COUNT, AUTOMATED 160 10^3/uL (150-450); RED BLOOD COUNT 3.42 10^6/uL (4.30-6.10); WHITE BLOOD COUNT 7.2 10^3/uL (4.0-10.0)
[2022-01-21 07:02] LABS: CALCIUM LEVEL 8.6 MG/DL (8.3-10.6); CREATININE FOR GFR 2.43 MG/DL (0.70-1.30); MAGNESIUM LEVEL 1.9 MG/DL (1.8-2.4); POTASSIUM SERUM 4.2 MMOL/L (3.5-5.1)
[2022-01-21] MEDS: ADVAIR HFA 230/21MCG INHALER INH SCH ×2 (07:37→21:08)
[2022-01-21] MEDS: TIOTROPIUM INHALER/CAPSULE (SPIRIVA) INH SCH (07:37)
[2022-01-21] MEDS: APIXABAN 2.5 MG TAB (ELIQUIS) PO SCH ×2 (08:19→20:48)
[2022-01-21] MEDS: GABAPENTIN 300 MG CAP PO SCH ×2 (08:19→20:48)
[2022-01-21] MEDS: CEFDINIR 300 MG CAP (OMNICEF) PO SCH (08:19)
[2022-01-21] MEDS: LEVOTHYROXINE 125MCG TABLET (0.125MG) PO SCH (08:19)
[2022-01-21] MEDS: TAMSULOSIN 0.4 MG CAP PO SCH (08:19)
[2022-01-21] MEDS: DIGOXIN 0.125 MG TAB PO SCH (08:20)
[2022-01-21] MEDS: DOXYCYCLINE HYCLATE 100MG TABLET PO SCH ×2 (08:20→20:48)
[2022-01-21] MEDS: MIDODRINE 5 MG TAB PO SCH ×3 (08:20→17:09)
[2022-01-21] MEDS: METOPROLOL SUCC *XL* 12.5MG PER 1/2 TAB (TopROL *XL*) PO SCH ×2 (08:20→20:49)
[2022-01-21] MEDS: guaiFENesin 200 MG TAB PO SCH ×4 (09:47→20:48)
[2022-01-21 12:49] VITALS: BP 106/62
[2022-01-21 14:00] VITALS: BP 104/60
[2022-01-21 20:36] VITALS: BP 110/67
[2022-01-21] MEDS: ROSUVASTATIN 10 MG TAB (CRESTOR) PO SCH (20:48)
[2022-01-22 00:08] VITALS: BP 106/63
[2022-01-22] MEDS: guaiFENesin 200 MG TAB PO SCH ×4 (01:21→12:30)
[2022-01-22 05:18] VITALS: BP 99/60
[2022-01-22 06:18] LABS: BASO # 0.1 10^3/uL (0.0-0.2); BASO % 0.7 % (0.0-1.0); EOS # 0.2 10^3/uL (0.0-0.5); EOS % 2.7 % (0.0-3.0); HEMATOCRIT 36.5 % (42.0-52.0); HEMOGLOBIN 10.9 g/dl (13.5-17.5); LYMPH # 1.7 10^3/uL (1.5-5.0); LYMPH % 20.6 % (24.0-44.0); MEAN CORPUSCULAR HEMOGLOBIN 30.7 pg (27.0-33.0); MEAN CORPUSCULAR HGB CONC 29.9 g/dl (32.0-36.5); MEAN CORPUSCULAR VOLUME 102.8 fl (80.0-96.0); MONO # 0.9 10^3/uL (0.0-0.8); MONO % 10.8 % (2.0-8.0); NEUTROPHILS # 5.5 10^3/uL (1.5-8.5); NEUTROPHILS % 64.8 % (36.0-66.0); PLATELET COUNT, AUTOMATED 187 10^3/uL (150-450); RED BLOOD COUNT 3.55 10^6/uL (4.30-6.10); WHITE BLOOD COUNT 8.5 10^3/uL (4.0-10.0)
[2022-01-22 07:30] LABS: CALCIUM LEVEL 9.1 MG/DL (8.3-10.6); CREATININE FOR GFR 2.6 MG/DL (0.70-1.30); POTASSIUM SERUM 4.5 MMOL/L (3.5-5.1)
[2022-01-22 08:32] VITALS: BP 109/67
[2022-01-22] MEDS: METOPROLOL SUCC *XL* 12.5MG PER 1/2 TAB (TopROL *XL*) PO SCH (08:32)
[2022-01-22] MEDS: TAMSULOSIN 0.4 MG CAP PO SCH (08:32)
[2022-01-22] MEDS: APIXABAN 2.5 MG TAB (ELIQUIS) PO SCH (08:32)
[2022-01-22] MEDS: MIDODRINE 5 MG TAB PO SCH ×2 (08:32→12:30)
[2022-01-22] MEDS: GABAPENTIN 300 MG CAP PO SCH (08:32)
[2022-01-22] MEDS: CEFDINIR 300 MG CAP (OMNICEF) PO SCH (08:32)
[2022-01-22] MEDS: LEVOTHYROXINE 125MCG TABLET (0.125MG) PO SCH (08:32)
[2022-01-22] MEDS: DIGOXIN 0.125 MG TAB PO SCH (08:37)
[2022-01-22] MEDS: DOXYCYCLINE HYCLATE 100MG TABLET PO SCH (08:37)
[2022-01-22] MEDS: TIOTROPIUM INHALER/CAPSULE (SPIRIVA) INH SCH (08:40)
[2022-01-22] MEDS: ADVAIR HFA 230/21MCG INHALER INH SCH (08:41)
[2022-01-22] MEDS ORDERED: IPRA0.00 INH (10:41)
[2022-01-22] MEDS ORDERED: ELIQ2.5T PO (10:41)
[2022-01-22] MEDS ORDERED: ALBU2.5V10 INH (10:41)
[2022-01-22] MEDS ORDERED: PRED10TA2 PO (10:41)
[2022-01-22] MEDS ORDERED: METO1TAB32 PO (10:41)
[2022-01-22] MEDS ORDERED: PRED20TA PO (10:41)
[2022-01-22] MEDS ORDERED: DOXY100T PO (10:41)
[2022-01-22] MEDS ORDERED: ALBU8.5H INH (10:41)
[2022-01-22] MEDS ORDERED: GUAI20TA PO (10:41)
[2022-01-22 14:00] VITALS: BP 104/62
== END 2022-01-22 15:12 | disposition home health service (06) | DRG 194 ==
LOC: M ED 10:07 → M ED INP 13:10 → ENRESERV 14:03 → M PCU 14:45 → M MSPAV 01-20 14:43
PROVIDERS: ADMIT Internal Medicine Nephrology; ATTEND Family Medicine
DX: J18.9 Pneumonia, unspecified organism (principal); N17.9 Acute kidney failure, unspecified; J44.0 Chronic obstructive pulmonary disease with (acute) lower respiratory infection; I50.22 Chronic systolic (congestive) heart failure; I13.0 Hypertensive heart and chronic kidney disease with heart failure and stage 1 through stage 4 chronic kidney disease, or unspecified chronic kidney disease; J96.11 Chronic respiratory failure with hypoxia; I25.10 Atherosclerotic heart disease of native coronary artery without angina pectoris; I25.2 Old myocardial infarction; I25.5 Ischemic cardiomyopathy; I27.20 Pulmonary hypertension, unspecified; I48.0 Paroxysmal atrial fibrillation; I44.0 Atrioventricular block, first degree; I45.10 Unspecified right bundle-branch block; Z66 Do not resuscitate; J84.10 Pulmonary fibrosis, unspecified; D64.9 Anemia, unspecified; N40.0 Benign prostatic hyperplasia without lower urinary tract symptoms; E03.9 Hypothyroidism, unspecified; E78.5 Hyperlipidemia, unspecified; I95.89 Other hypotension; N18.30 Chronic kidney disease, stage 3 unspecified; Z86.73 Personal history of transient ischemic attack (TIA), and cerebral infarction without residual deficits; Z79.890 Hormone replacement therapy; Z79.01 Long term (current) use of anticoagulants; Z79.899 Other long term (current) drug therapy; Z95.5 Presence of coronary angioplasty implant and graft; Z99.81 Dependence on supplemental oxygen

== ENCOUNTER 2022-04-16 12:15 | Inpatient (IN) | payer MEDICARE ==
[~2022-04-16] VITALS: Ht 167.6 cm; Wt 63.0 kg
[~2022-04-16 12:15] MED LIST changes: +ALBU2.5V10 INH; +ALBU8.5H INH; +ELIQ2.5T PO; +ENTR1TAB PO; +GUAI20TA PO; +IPRA0.00 INH; +METO1TAB32 PO; +PRED10TA2 PO; +PROA1AER2 INH
[2022-04-16 13:15] LABS: BASO # 0.1 10^3/uL (0.0-0.2); BASO % 0.6 % (0.0-1.0); EOS # 0.1 10^3/uL (0.0-0.5); HEMATOCRIT 42.5 % (42.0-52.0); LYMPH # 1.3 10^3/uL (1.5-5.0); LYMPH % 13.7 % (24.0-44.0); MEAN CORPUSCULAR HEMOGLOBIN 31.2 pg (27.0-33.0); MEAN CORPUSCULAR HGB CONC 30.6 g/dl (32.0-36.5); MEAN CORPUSCULAR VOLUME 101.9 fl (80.0-96.0); MONO # 0.7 10^3/uL (0.0-0.8); NEUTROPHILS # 7.3 10^3/uL (1.5-8.5); NEUTROPHILS % 77.4 % (36.0-66.0); PLATELET COUNT, AUTOMATED 325 10^3/uL (150-450); RED BLOOD COUNT 4.17 10^6/uL (4.30-6.10); WHITE BLOOD COUNT 9.5 10^3/uL (4.0-10.0)
[2022-04-16 13:27] LABS: INR 1.24; PROTHROMBIN TIME 15.9 SECONDS (12.5-14.5)
[2022-04-16 13:28] LABS: PARTIAL THROMBOPLASTIN TIME 34.9 SECONDS (24.8-34.2)
[2022-04-16 13:57] LABS: RSV AMPLIFICATION NEGATIVE (NEGATIVE)
[2022-04-16 14:13] LABS: ALBUMIN 3.2 G/DL (3.2-5.2); BILIRUBIN,DIRECT 0.2 MG/DL (<0.4); BILIRUBIN,TOTAL 0.5 MG/DL (0.3-1.2); CALCIUM LEVEL 9.5 MG/DL (8.3-10.6); CK-MB VALUE MASS 5.2 NG/ML (<3.6); CREATININE FOR GFR 1.88 MG/DL (0.70-1.30); GLOMERULAR FILTRATION RATE 36.3 (>35); POTASSIUM SERUM 4.1 MMOL/L (3.5-5.1)
[2022-04-16 14:14] LABS: MB/CK RELATIVE INDEX 7.87 (< OR =4)
[2022-04-16] MEDS ORDERED: BISACODYL 5MG TAB PO ONE (19:00)
[2022-04-16] MEDS ORDERED: REMDESIVIR 200 MG in NS 250 ML IV ONE (20:00)
[2022-04-16] MEDS ORDERED: GOLYTELY SOLN 4000 ML BTL PO ONE (20:00)
[2022-04-16 20:50] VITALS: BP 107/44
[2022-04-16] MEDS ORDERED: SODIUM CHLORIDE 0.9% INJ 10 ML SYR IV ONE (21:00)
[2022-04-16] MEDS ORDERED: ACET-897 PO (22:51)
[2022-04-16] MEDS ORDERED: ALBU8.5H INH (22:51)
[2022-04-16] MEDS ORDERED: ALBU2.5V10 INH (22:51)
[2022-04-16] MEDS ORDERED: POTA10TA67 PO (22:51)
[2022-04-16] MEDS ORDERED: METO1TAB32 PO (22:51)
[2022-04-16] MEDS ORDERED: DALI1TAB2 PO (22:51)
[2022-04-16] MEDS ORDERED: FURO40TA2 PO (22:51)
[2022-04-16] MEDS ORDERED: IPRA0.00 INH (22:51)
[2022-04-16] MEDS ORDERED: ELIQ2.5T PO (22:51)
[2022-04-16] MEDS ORDERED: HOME MED LIST COMPLETE! XX SCH (22:55)
[2022-04-16] MEDS ORDERED: ALBUTEROL 90 MCG/ACT 8GM HFA INHALER INH PRN (23:10)
[2022-04-16] MEDS ORDERED: ALBUTEROL SULFATE 2.5MG/0.5ML INH NEB SOLN INH PRN (23:10)
[2022-04-17] VITALS (9 sets, daily range): BP systolic 90–108; BP diastolic 50–65
[2022-04-17] MEDS: GABAPENTIN 300 MG CAP PO SCH ×3 (00:20→20:49)
[2022-04-17] MEDS: ROSUVASTATIN 10 MG TAB (CRESTOR) PO SCH ×2 (00:23→20:50)
[2022-04-17 05:46] LABS: BASO # 0.1 10^3/uL (0.0-0.2); BASO % 0.8 % (0.0-1.0); EOS # 0.1 10^3/uL (0.0-0.5); EOS % 1.9 % (0.0-3.0); HEMATOCRIT 35.6 % (42.0-52.0); LYMPH # 1.5 10^3/uL (1.5-5.0); LYMPH % 20.5 % (24.0-44.0); MEAN CORPUSCULAR HEMOGLOBIN 30.4 pg (27.0-33.0); MEAN CORPUSCULAR HGB CONC 30.3 g/dl (32.0-36.5); MEAN CORPUSCULAR VOLUME 100.3 fl (80.0-96.0); MONO # 0.8 10^3/uL (0.0-0.8); MONO % 10.8 % (2.0-8.0); NEUTROPHILS # 4.9 10^3/uL (1.5-8.5); NEUTROPHILS % 65.7 % (36.0-66.0); PLATELET COUNT, AUTOMATED 253 10^3/uL (150-450); RED BLOOD COUNT 3.55 10^6/uL (4.30-6.10); WHITE BLOOD COUNT 7.5 10^3/uL (4.0-10.0)
[2022-04-17] MEDS: LEVOTHYROXINE 125MCG TABLET (0.125MG) PO SCH (05:58)
[2022-04-17 06:17] LABS: HEMOGLOBIN 10.8 g/dl (13.5-17.5)
[2022-04-17 06:51] LABS: ALBUMIN 2.4 G/DL (3.2-5.2); BILIRUBIN,DIRECT 0.1 MG/DL (<0.4); BILIRUBIN,TOTAL 0.4 MG/DL (0.3-1.2); CALCIUM LEVEL 8.6 MG/DL (8.3-10.6); CORTISOL AM 10.2 UG/DL (4.3-22.4); CREATININE FOR GFR 1.62 MG/DL (0.70-1.30); GLOMERULAR FILTRATION RATE 43.1 (>35); MAGNESIUM LEVEL 1.8 MG/DL (1.8-2.4); POTASSIUM SERUM 4.2 MMOL/L (3.5-5.1); TOTAL PROTEIN 5.2 G/DL (5.7-8.2)
[2022-04-17] MEDS ORDERED: BISACODYL 5MG TAB PO ONE (07:15)
[2022-04-17] MEDS ORDERED: MOM 30ML SUSPENSION UDC PO ONE (07:20)
[2022-04-17] MEDS: ADVAIR HFA 115/21MCG INHALER INH SCH ×2 (07:22→19:12)
[2022-04-17] MEDS: TIOTROPIUM INHALER/CAPSULE (SPIRIVA) INH SCH (07:22)
[2022-04-17] MEDS: PANTOPRAZOLE 40MG TAB (PROTONIX) PO SCH (08:12)
[2022-04-17] MEDS: FUROSEMIDE 40 MG TAB PO SCH (08:27)
[2022-04-17] MEDS ORDERED: DIGOXIN 0.125 MG TAB PO SCH (09:00)
[2022-04-17] MEDS ORDERED: TAMSULOSIN 0.4 MG CAP PO SCH (09:00)
[2022-04-17] MEDS ORDERED: IPRATROPIUM 0.5MG/ALBUTEROL 2.5MG INH SOL UD 3ML (DUONEB) INH PRN (10:20)
[2022-04-17] MEDS ORDERED: NS 1,000 ML IV SCH (10:20)
[2022-04-17 11:05] LABS: HEMATOCRIT 41.8 % (42.0-52.0)
[2022-04-17] MEDS ORDERED: propofoL 200 MG/20 ML VIAL As Ordered ONE (14:04)
[2022-04-17] MEDS ORDERED: LIDOCAINE 2% 100MG/5ML SDV (FOR ANES.) As Ordered ONE (14:04)
[2022-04-17] MEDS ORDERED: PHENYLephrine 500MCG 5ML (100MCG/ML) SYRINGE As Ordered ONE (14:35)
[2022-04-17] MEDS ORDERED: REMDESIVIR 100 MG in NS 250 ML IV SCH (20:00)
[2022-04-17] MEDS ORDERED: SODIUM CHLORIDE 0.9% INJ 10 ML SYR IV SCH (21:00)
[2022-04-17] MEDS ORDERED: MIDODRINE 5 MG TAB PO ONE (23:05)
[2022-04-18 01:56] VITALS: BP 108/56
[2022-04-18 06:10] LABS: BASO # 0.1 10^3/uL (0.0-0.2); BASO % 1.1 % (0.0-1.0); EOS # 0.1 10^3/uL (0.0-0.5); EOS % 1.4 % (0.0-3.0); HEMATOCRIT 32.8 % (42.0-52.0); LYMPH # 1.3 10^3/uL (1.5-5.0); LYMPH % 15.8 % (24.0-44.0); MEAN CORPUSCULAR HGB CONC 31.1 g/dl (32.0-36.5); MEAN CORPUSCULAR VOLUME 99.7 fl (80.0-96.0); MONO # 0.8 10^3/uL (0.0-0.8); NEUTROPHILS # 5.8 10^3/uL (1.5-8.5); NEUTROPHILS % 71.3 % (36.0-66.0); PLATELET COUNT, AUTOMATED 223 10^3/uL (150-450); RED BLOOD COUNT 3.29 10^6/uL (4.30-6.10); WHITE BLOOD COUNT 8.1 10^3/uL (4.0-10.0)
[2022-04-18 06:21] LABS: HEMOGLOBIN 10.2 g/dl (13.5-17.5)
[2022-04-18 06:23] VITALS: BP 90/48
[2022-04-18] MEDS: LEVOTHYROXINE 125MCG TABLET (0.125MG) PO SCH (06:36)
[2022-04-18 06:42] LABS: CALCIUM LEVEL 8.4 MG/DL (8.3-10.6); CREATININE FOR GFR 1.7 MG/DL (0.70-1.30); GLOMERULAR FILTRATION RATE 40.8 (>35); POTASSIUM SERUM 3.7 MMOL/L (3.5-5.1)
[2022-04-18] MEDS: ADVAIR HFA 115/21MCG INHALER INH SCH (07:56)
[2022-04-18] MEDS: TIOTROPIUM INHALER/CAPSULE (SPIRIVA) INH SCH (07:56)
[2022-04-18] MEDS: GABAPENTIN 300 MG CAP PO SCH (08:27)
[2022-04-18] MEDS: PANTOPRAZOLE 40MG TAB (PROTONIX) PO SCH (08:27)
[2022-04-18] MEDS: MIDODRINE 5 MG TAB PO SCH ×2 (08:28→12:04)
[2022-04-18 08:30] VITALS: BP 91/57
[2022-04-18] MEDS: FUROSEMIDE 40 MG TAB PO SCH (08:30)
[2022-04-18] MEDS ORDERED: DIGOXIN INJ 0.5 MG/2 ML AMP IV ONE (09:00)
[2022-04-18] MEDS ORDERED: METOPROLOL SUCC *XL* 25MG TAB (TopROL *XL*) PO SCH (09:00)
[2022-04-18 10:00] VITALS: BP 96/59
[2022-04-18] MEDS ORDERED: ELIQ2.5T PO (10:49)
[2022-04-18] MEDS ORDERED: MIDO2.5T PO (10:49)
== END 2022-04-18 13:12 | disposition home or self-care (01) | DRG 391 ==
LOC: M ED 12:15 → M ED INP 16:21 → ENRESERV 19:48 → M MSPAV 20:45
PROVIDERS: ADMIT Internal Medicine; ATTEND Internal Medicine
PROC: XW033E5 Introduction of Remdesivir Anti-infective into Peripheral Vein, Percutaneous Approach, New Technology Group 5 (ICD-10-PCS; 2022-04-16)
PROC: 0W3P8ZZ Control Bleeding in Gastrointestinal Tract, Via Natural or Artificial Opening Endoscopic (ICD-10-PCS; 2022-04-17)
PROC: 0DBL8ZX Excision of Transverse Colon, Via Natural or Artificial Opening Endoscopic, Diagnostic (ICD-10-PCS; principal; 2022-04-17 13:30)
DX: K57.30 Diverticulosis of large intestine without perforation or abscess without bleeding (principal); U07.1 COVID-19; I50.22 Chronic systolic (congestive) heart failure; K62.5 Hemorrhage of anus and rectum; N17.9 Acute kidney failure, unspecified; I25.10 Atherosclerotic heart disease of native coronary artery without angina pectoris; I25.2 Old myocardial infarction; I25.5 Ischemic cardiomyopathy; I27.20 Pulmonary hypertension, unspecified; I48.0 Paroxysmal atrial fibrillation; I44.0 Atrioventricular block, first degree; J44.9 Chronic obstructive pulmonary disease, unspecified; J84.10 Pulmonary fibrosis, unspecified; D12.2 Benign neoplasm of ascending colon; Z66 Do not resuscitate; N40.0 Benign prostatic hyperplasia without lower urinary tract symptoms; D12.1 Benign neoplasm of appendix; E03.9 Hypothyroidism, unspecified; K29.70 Gastritis, unspecified, without bleeding; E78.5 Hyperlipidemia, unspecified; D64.9 Anemia, unspecified; I45.10 Unspecified right bundle-branch block; D12.3 Benign neoplasm of transverse colon; I95.89 Other hypotension; N18.30 Chronic kidney disease, stage 3 unspecified; Z86.73 Personal history of transient ischemic attack (TIA), and cerebral infarction without residual deficits; Z95.5 Presence of coronary angioplasty implant and graft; Z87.891 Personal history of nicotine dependence; Z79.01 Long term (current) use of anticoagulants; Z79.890 Hormone replacement therapy; Z79.899 Other long term (current) drug therapy

== ENCOUNTER 2022-05-23 17:45 | Inpatient (IN) | payer MEDICARE, OTHER ==
[~2022-05-23] VITALS: Ht 167.6 cm; Wt 61.7 kg
[~2022-05-23 17:45] MED LIST changes: +ACET-897 PO; +MIDO2.5T PO; +POTA10TA67 PO
[2022-05-23 19:37] LABS: HEMOGLOBIN 12.4 g/dl (13.5-17.5); MEAN CORPUSCULAR HEMOGLOBIN 30.8 pg (27.0-33.0); MEAN CORPUSCULAR VOLUME 99.5 fl (80.0-96.0); PLATELET COUNT, AUTOMATED 253 10^3/uL (150-450); RED BLOOD COUNT 4.02 10^6/uL (4.30-6.10); WHITE BLOOD COUNT 14.6 10^3/uL (4.0-10.0)
[2022-05-23 19:48] LABS: INR 1.19; PROTHROMBIN TIME 15.4 SECONDS (12.5-14.5)
[2022-05-23 19:49] LABS: PARTIAL THROMBOPLASTIN TIME 31.8 SECONDS (24.8-34.2)
[2022-05-23 19:54] LABS: RSV AMPLIFICATION NEGATIVE (NEGATIVE)
[2022-05-23 20:03] LABS: ALBUMIN 2.9 G/DL (3.2-5.2); BILIRUBIN,DIRECT 0.3 MG/DL (<0.4); BILIRUBIN,TOTAL 0.8 MG/DL (0.3-1.2); CALCIUM LEVEL 9.7 MG/DL (8.3-10.6); CREATININE FOR GFR 1.55 MG/DL (0.70-1.30); GLOMERULAR FILTRATION RATE 45.4 (>35); POTASSIUM SERUM 4.2 MMOL/L (3.5-5.1); TOTAL PROTEIN 6.4 G/DL (5.7-8.2)
[2022-05-23] MEDS ORDERED: PIPERACILLIN/TAZOBACTAM SOD 4.5 GM in D5W MINI-BAG PLUS 50 ML IV ONE (20:15)
[2022-05-23] MEDS ORDERED: NS 1,000 ML IV ONE (20:15)
[2022-05-23] MEDS ORDERED: ONDANSETRON 4MG 2ML VIAL IV PRN (20:25)
[2022-05-23] MEDS ORDERED: KETOROLAC 30 MG/ML 1ML VIAL IV PRN (20:25)
[2022-05-23] MEDS ORDERED: NORCO, ANEXSIA 5/325MG TABLET (HYDROcodone/ACETAMINOPHEN) PO PRN ×2 (20:25)
[2022-05-23] MEDS ORDERED: ELIQ2.5T PO (20:25)
[2022-05-23] MEDS ORDERED: HOME MED LIST COMPLETE! XX SCH (20:30)
[2022-05-23] MEDS ORDERED: HYDROMORPHONE HCL 0.5 MG/ 0.5 ML SYRINGE IV PRN (21:40)
[2022-05-23] MEDS: METOPROLOL TART 25 MG TABLET PO SCH (22:18)
[2022-05-23 22:34] VITALS: BP 128/64
[2022-05-23 23:00] VITALS: O2SAT 99
[2022-05-23] MEDS: LR 1,000 ML IV SCH (23:00)
[2022-05-24] VITALS (22 sets, daily range): BP systolic 92–123; BP diastolic 55–68; O2SAT 91–100
[2022-05-24] MEDS ORDERED: PANTOPRAZOLE 40MG VIAL IV SCH (00:15)
[2022-05-24] MEDS: NYSTATIN CREAM 15GM TOP SCH ×3 (02:01→20:37)
[2022-05-24] MEDS: LEVOTHYROXINE 125MCG TABLET (0.125MG) PO SCH (06:00)
[2022-05-24 06:23] LABS: BASO # 0.1 10^3/uL (0.0-0.2); BASO % 0.5 % (0.0-1.0); EOS % 0.2 % (0.0-3.0); HEMATOCRIT 33.6 % (42.0-52.0); HEMOGLOBIN 10.5 g/dl (13.5-17.5); LYMPH # 0.9 10^3/uL (1.5-5.0); LYMPH % 7.3 % (24.0-44.0); MEAN CORPUSCULAR HEMOGLOBIN 31.1 pg (27.0-33.0); MEAN CORPUSCULAR HGB CONC 31.3 g/dl (32.0-36.5); MEAN CORPUSCULAR VOLUME 99.4 fl (80.0-96.0); MONO # 1.3 10^3/uL (0.0-0.8); MONO % 10.4 % (2.0-8.0); NEUTROPHILS # 10.2 10^3/uL (1.5-8.5); NEUTROPHILS % 81.1 % (36.0-66.0); PLATELET COUNT, AUTOMATED 223 10^3/uL (150-450); RED BLOOD COUNT 3.38 10^6/uL (4.30-6.10); WHITE BLOOD COUNT 12.6 10^3/uL (4.0-10.0)
[2022-05-24 06:55] LABS: CREATININE FOR GFR 1.64 MG/DL (0.70-1.30); GLOMERULAR FILTRATION RATE 42.5 (>35)
[2022-05-24] MEDS ORDERED: IPRATROPIUM 0.5MG/ALBUTEROL 2.5MG INH SOL UD 3ML (DUONEB) INH PRN (07:15)
[2022-05-24] MEDS ORDERED: ALBUTEROL 90 MCG/ACT 8GM HFA INHALER INH PRN (07:15)
[2022-05-24] MEDS ORDERED: ALBUTEROL SULFATE 2.5MG/0.5ML INH NEB SOLN INH PRN (08:00)
[2022-05-24] MEDS: POTASSIUM CHLORIDE 10MEQ SR TABLET PO SCH (08:44)
[2022-05-24] MEDS: GABAPENTIN 300 MG CAP PO SCH ×3 (08:44→20:40)
[2022-05-24] MEDS: PANTOPRAZOLE 40MG VIAL IV SCH (08:45)
[2022-05-24] MEDS: TIOTROPIUM INHALER/CAPSULE (SPIRIVA) INH SCH (09:42)
[2022-05-24] MEDS: METOPROLOL TART 25 MG TABLET PO SCH ×2 (10:41→20:40)
[2022-05-24] MEDS ORDERED: PILL CUTTER 1 EACH XX ONE (10:42)
[2022-05-24] MEDS: LR 1,000 ML IV SCH (11:25)
[2022-05-24] MEDS ORDERED: SUGAMMADEX SODIUM 500 MG/5 ML VIAL (BRIDION) As Ordered ONE (12:16)
[2022-05-24] MEDS ORDERED: LIDOCAINE 2% 100MG/5ML SDV (FOR ANES.) As Ordered ONE (12:16)
[2022-05-24] MEDS ORDERED: ROCURONIUM BROMIDE 50MG/5ML VIAL As Ordered ONE (12:16)
[2022-05-24] MEDS ORDERED: propofoL 200 MG/20 ML VIAL As Ordered ONE (12:16)
[2022-05-24] MEDS ORDERED: ONDANSETRON 4MG 2ML VIAL As Ordered ONE (12:16)
[2022-05-24] MEDS ORDERED: ACETAMINOPHEN 1000MG 100ML IV BAG As Ordered ONE (12:16)
[2022-05-24] MEDS ORDERED: fentaNYL 100 MCG/2 ML INJECTION As Ordered ONE (12:17)
[2022-05-24] MEDS ORDERED: BUPIVACAINE HCL 0.25% 30ML VIAL As Ordered ONE (12:34)
[2022-05-24] MEDS ORDERED: LIDOCAINE 1% SDV 30ML VIAL As Ordered ONE (12:34)
[2022-05-24] MEDS ORDERED: BUPIVACAINE LIPOSOME/PF 1.3% 20ML VIAL (13.3MG/ML)(EXPAREL) As Ordered ONE (12:34)
[2022-05-24] MEDS ORDERED: ZOSYN 3.375GM VIAL As Ordered ONE (13:30)
[2022-05-24] MEDS ORDERED: BUPIVACAINE HCL 0.25% 30ML VIAL ONE (13:41)
[2022-05-24] MEDS ORDERED: LR 1,000 ML IV SCH (18:45)
[2022-05-24] MEDS ORDERED: ONDANSETRON 4MG 2ML VIAL IV PRN (18:45)
[2022-05-24] MEDS ORDERED: MEPERIDINE 25 MG/ML 1ML VIAL IV PRN (18:45)
[2022-05-24] MEDS ORDERED: fentaNYL 100 MCG/2 ML INJECTION IV PRN (18:45)
[2022-05-24] MEDS: ALVIMOPAN 12 MG CAPSULE (ENTEREG) PO SCH (20:40)
[2022-05-24] MEDS: ROSUVASTATIN 10 MG TAB (CRESTOR) PO SCH (20:40)
[2022-05-24] MEDS: MULTIVITAMINS/MINERALS THERAP 1 TAB PO SCH (20:40)
[2022-05-25] VITALS (25 sets, daily range): BP systolic 88–120; BP diastolic 51–60; O2SAT 83–99
[2022-05-25] MEDS: LR 1,000 ML IV SCH ×2 (01:31→12:55)
[2022-05-25 05:43] LABS: BASO % 0.1 % (0.0-1.0); HEMATOCRIT 36.8 % (42.0-52.0); HEMOGLOBIN 11.1 g/dl (13.5-17.5); LYMPH # 0.7 10^3/uL (1.5-5.0); LYMPH % 5.2 % (24.0-44.0); MEAN CORPUSCULAR HGB CONC 30.2 g/dl (32.0-36.5); MEAN CORPUSCULAR VOLUME 102.8 fl (80.0-96.0); MONO # 1.1 10^3/uL (0.0-0.8); MONO % 7.7 % (2.0-8.0); NEUTROPHILS # 11.9 10^3/uL (1.5-8.5); NEUTROPHILS % 86.4 % (36.0-66.0); PLATELET COUNT, AUTOMATED 205 10^3/uL (150-450); RED BLOOD COUNT 3.58 10^6/uL (4.30-6.10); WHITE BLOOD COUNT 13.7 10^3/uL (4.0-10.0)
[2022-05-25] MEDS: LEVOTHYROXINE 125MCG TABLET (0.125MG) PO SCH (05:59)
[2022-05-25 06:20] LABS: CALCIUM LEVEL 8.5 MG/DL (8.3-10.6); CREATININE FOR GFR 1.65 MG/DL (0.70-1.30); GLOMERULAR FILTRATION RATE 42.2 (>35); MAGNESIUM LEVEL 2.2 MG/DL (1.8-2.4); POTASSIUM SERUM 5.4 MMOL/L (3.5-5.1)
[2022-05-25] MEDS ORDERED: FUROSEMIDE 20MG/2ML VIAL IV ONE (07:00)
[2022-05-25] MEDS: TIOTROPIUM INHALER/CAPSULE (SPIRIVA) INH SCH (07:45)
[2022-05-25] MEDS: GABAPENTIN 300 MG CAP PO SCH ×3 (08:30→20:25)
[2022-05-25] MEDS: ALVIMOPAN 12 MG CAPSULE (ENTEREG) PO SCH ×2 (08:30→20:25)
[2022-05-25] MEDS: PANTOPRAZOLE 40MG VIAL IV SCH (08:31)
[2022-05-25] MEDS: METOPROLOL TART 25 MG TABLET PO SCH (08:31)
[2022-05-25] MEDS: NYSTATIN CREAM 15GM TOP SCH ×2 (08:31→20:24)
[2022-05-25] MEDS: POTASSIUM CHLORIDE 10MEQ SR TABLET PO SCH (08:32)
[2022-05-25 14:51] LABS: CALCIUM LEVEL 8.5 MG/DL (8.3-10.6); CREATININE FOR GFR 1.7 MG/DL (0.70-1.30); GLOMERULAR FILTRATION RATE 40.8 (>35); POTASSIUM SERUM 4.5 MMOL/L (3.5-5.1)
[2022-05-25] MEDS ORDERED: METOPROLOL 5 MG/5 ML VIAL IV STA (16:19)
[2022-05-25] MEDS ORDERED: METOPROLOL TART 25 MG TABLET PO ONE (17:40)
[2022-05-25] MEDS: MULTIVITAMINS/MINERALS THERAP 1 TAB PO SCH (20:25)
[2022-05-25] MEDS: ROSUVASTATIN 10 MG TAB (CRESTOR) PO SCH (20:25)
[2022-05-25] MEDS: HEPARIN SOD (PORCINE) 5000UNITS/ML 1ML VIAL/SYRINGE SQ SCH (20:25)
[2022-05-25] MEDS ORDERED: MIDODRINE 5 MG TAB PO ONE (21:00)
[2022-05-25] MEDS ORDERED: METOPROLOL TART 25 MG TABLET PO SCH (21:00)
[2022-05-26] VITALS (15 sets, daily range): BP systolic 94–108; BP diastolic 54–70; O2SAT 95–97
[2022-05-26] MEDS: HEPARIN SOD (PORCINE) 5000UNITS/ML 1ML VIAL/SYRINGE SQ SCH (06:13)
[2022-05-26] MEDS: LEVOTHYROXINE 125MCG TABLET (0.125MG) PO SCH (06:13)
[2022-05-26 06:36] LABS: BASO % 0.1 % (0.0-1.0); HEMATOCRIT 31.6 % (42.0-52.0); HEMOGLOBIN 9.6 g/dl (13.5-17.5); LYMPH # 0.6 10^3/uL (1.5-5.0); LYMPH % 4.8 % (24.0-44.0); MEAN CORPUSCULAR HEMOGLOBIN 31.2 pg (27.0-33.0); MEAN CORPUSCULAR HGB CONC 30.4 g/dl (32.0-36.5); MEAN CORPUSCULAR VOLUME 102.6 fl (80.0-96.0); MONO # 0.5 10^3/uL (0.0-0.8); MONO % 4.6 % (2.0-8.0); NEUTROPHILS # 10.4 10^3/uL (1.5-8.5); PLATELET COUNT, AUTOMATED 195 10^3/uL (150-450); RED BLOOD COUNT 3.08 10^6/uL (4.30-6.10); WHITE BLOOD COUNT 11.5 10^3/uL (4.0-10.0)
[2022-05-26 07:09] LABS: CALCIUM LEVEL 8.7 MG/DL (8.3-10.6); CREATININE FOR GFR 1.82 MG/DL (0.70-1.30); GLOMERULAR FILTRATION RATE 37.7 (>35); POTASSIUM SERUM 4.6 MMOL/L (3.5-5.1)
[2022-05-26] MEDS: TIOTROPIUM INHALER/CAPSULE (SPIRIVA) INH SCH (07:34)
[2022-05-26] MEDS: ALVIMOPAN 12 MG CAPSULE (ENTEREG) PO SCH ×2 (08:19→20:18)
[2022-05-26] MEDS: PANTOPRAZOLE 40MG VIAL IV SCH (08:19)
[2022-05-26] MEDS: GABAPENTIN 300 MG CAP PO SCH ×3 (08:19→20:18)
[2022-05-26] MEDS: NYSTATIN CREAM 15GM TOP SCH ×3 (08:20→20:19)
[2022-05-26] MEDS: METOPROLOL TART 12.5 MG PER 1/2 TAB PO SCH ×2 (08:58→20:19)
[2022-05-26] MEDS ORDERED: FUROSEMIDE 20MG/2ML VIAL IV ONE (10:55)
[2022-05-26] MEDS: TAMSULOSIN 0.4 MG CAP PO SCH ×2 (11:20→20:18)
[2022-05-26] MEDS: APIXABAN 2.5 MG TAB (ELIQUIS) PO SCH ×2 (12:13→20:18)
[2022-05-26] MEDS ORDERED: IPRATROPIUM 0.5MG/ALBUTEROL 2.5MG INH SOL UD 3ML (DUONEB) INH SCH (13:00)
[2022-05-26] MEDS ORDERED: MIRALAX *UNIT DOSE* 17GM PACKET PO ONE (13:10)
[2022-05-26] MEDS: predniSONE 20 MG TAB PO SCH (14:09)
[2022-05-26] MEDS: ADVAIR HFA 230/21MCG INHALER INH SCH (19:22)
[2022-05-26] MEDS: MULTIVITAMINS/MINERALS THERAP 1 TAB PO SCH (20:18)
[2022-05-26] MEDS: ROSUVASTATIN 10 MG TAB (CRESTOR) PO SCH (20:19)
[2022-05-27] VITALS (28 sets, daily range): BP systolic 91–110; BP diastolic 50–61; O2SAT 91–98
[2022-05-27] MEDS: LEVOTHYROXINE 125MCG TABLET (0.125MG) PO SCH (06:09)
[2022-05-27 06:12] LABS: BASO % 0.1 % (0.0-1.0); HEMATOCRIT 27.1 % (42.0-52.0); HEMOGLOBIN 8.3 g/dl (13.5-17.5); LYMPH # 0.6 10^3/uL (1.5-5.0); LYMPH % 5.7 % (24.0-44.0); MEAN CORPUSCULAR HGB CONC 30.6 g/dl (32.0-36.5); MEAN CORPUSCULAR VOLUME 101.1 fl (80.0-96.0); MONO # 0.8 10^3/uL (0.0-0.8); MONO % 7.1 % (2.0-8.0); NEUTROPHILS # 9.4 10^3/uL (1.5-8.5); NEUTROPHILS % 86.6 % (36.0-66.0); PLATELET COUNT, AUTOMATED 174 10^3/uL (150-450); RED BLOOD COUNT 2.68 10^6/uL (4.30-6.10); WHITE BLOOD COUNT 10.8 10^3/uL (4.0-10.0)
[2022-05-27 06:34] LABS: CALCIUM LEVEL 8.2 MG/DL (8.3-10.6); CREATININE FOR GFR 1.55 MG/DL (0.70-1.30); GLOMERULAR FILTRATION RATE 45.4 (>35); POTASSIUM SERUM 4.9 MMOL/L (3.5-5.1)
[2022-05-27] MEDS: TIOTROPIUM INHALER/CAPSULE (SPIRIVA) INH SCH (08:12)
[2022-05-27] MEDS: ADVAIR HFA 230/21MCG INHALER INH SCH ×2 (08:13→19:25)
[2022-05-27] MEDS: METOPROLOL TART 12.5 MG PER 1/2 TAB PO SCH ×3 (09:00→20:39)
[2022-05-27] MEDS: NYSTATIN CREAM 15GM TOP SCH ×2 (09:00→20:40)
[2022-05-27] MEDS: APIXABAN 2.5 MG TAB (ELIQUIS) PO SCH (09:04)
[2022-05-27] MEDS: TAMSULOSIN 0.4 MG CAP PO SCH ×2 (09:04→20:39)
[2022-05-27] MEDS: GABAPENTIN 300 MG CAP PO SCH ×3 (09:04→20:39)
[2022-05-27] MEDS: ALVIMOPAN 12 MG CAPSULE (ENTEREG) PO SCH ×2 (09:04→20:39)
[2022-05-27] MEDS: predniSONE 20 MG TAB PO SCH (09:04)
[2022-05-27] MEDS: PANTOPRAZOLE 40MG VIAL IV SCH ×2 (09:04→20:38)
[2022-05-27] MEDS ORDERED: DIGOXIN INJ 0.5 MG/2 ML AMP IV ONE (11:05)
[2022-05-27] MEDS ORDERED: DIGOXIN INJ 0.5 MG/2 ML AMP IV STA (12:39)
[2022-05-27] MEDS ORDERED: PANTOPRAZOLE 40MG TAB (PROTONIX) PO ONE (17:20)
[2022-05-27 18:39] LABS: HEMATOCRIT 26.9 % (42.0-52.0); HEMOGLOBIN 8.3 g/dl (13.5-17.5)
[2022-05-27] MEDS: ROSUVASTATIN 10 MG TAB (CRESTOR) PO SCH (20:39)
[2022-05-27] MEDS: MULTIVITAMINS/MINERALS THERAP 1 TAB PO SCH (20:39)
[2022-05-28] VITALS (23 sets, daily range): BP systolic 95–119; BP diastolic 52–58; O2SAT 94–98
[2022-05-28 05:39] LABS: HEMATOCRIT 24.2 % (42.0-52.0); HEMOGLOBIN 7.4 g/dl (13.5-17.5); MEAN CORPUSCULAR HEMOGLOBIN 30.7 pg (27.0-33.0); MEAN CORPUSCULAR HGB CONC 30.6 g/dl (32.0-36.5); MEAN CORPUSCULAR VOLUME 100.4 fl (80.0-96.0); PLATELET COUNT, AUTOMATED 178 10^3/uL (150-450); RED BLOOD COUNT 2.41 10^6/uL (4.30-6.10); WHITE BLOOD COUNT 9.6 10^3/uL (4.0-10.0)
[2022-05-28] MEDS: LEVOTHYROXINE 125MCG TABLET (0.125MG) PO SCH (05:50)
[2022-05-28] MEDS: TIOTROPIUM INHALER/CAPSULE (SPIRIVA) INH SCH (07:12)
[2022-05-28] MEDS: ADVAIR HFA 230/21MCG INHALER INH SCH ×2 (07:12→19:29)
[2022-05-28] MEDS: NYSTATIN CREAM 15GM TOP SCH ×2 (09:00→20:43)
[2022-05-28] MEDS: predniSONE 20 MG TAB PO SCH (09:37)
[2022-05-28] MEDS: GABAPENTIN 300 MG CAP PO SCH (09:37)
[2022-05-28] MEDS: TAMSULOSIN 0.4 MG CAP PO SCH ×2 (09:37→20:42)
[2022-05-28] MEDS: METOPROLOL TART 12.5 MG PER 1/2 TAB PO SCH ×2 (09:37→20:43)
[2022-05-28] MEDS: ALVIMOPAN 12 MG CAPSULE (ENTEREG) PO SCH ×2 (09:37→20:49)
[2022-05-28] MEDS: PANTOPRAZOLE 40MG VIAL IV SCH ×2 (09:37→20:42)
[2022-05-28] MEDS ORDERED: DIGOXIN INJ 0.5 MG/2 ML AMP IV ONE ×2 (09:50→17:00)
[2022-05-28] MEDS: MIDODRINE 5 MG TAB PO SCH ×2 (12:30→16:30)
[2022-05-28 15:12] LABS: HEMATOCRIT 27.8 % (42.0-52.0); HEMOGLOBIN 8.5 g/dl (13.5-17.5)
[2022-05-28] MEDS: GABAPENTIN 100 MG CAP PO SCH ×2 (16:30→20:42)
[2022-05-28] MEDS: ROSUVASTATIN 10 MG TAB (CRESTOR) PO SCH (20:40)
[2022-05-28] MEDS: MULTIVITAMINS/MINERALS THERAP 1 TAB PO SCH (20:42)
[2022-05-29] VITALS (18 sets, daily range): BP systolic 99–109; BP diastolic 54–60; O2SAT 93–98
[2022-05-29] MEDS: LEVOTHYROXINE 125MCG TABLET (0.125MG) PO SCH (05:28)
[2022-05-29 06:10] LABS: BASO % 0.1 % (0.0-1.0); HEMATOCRIT 27.5 % (42.0-52.0); HEMOGLOBIN 8.4 g/dl (13.5-17.5); LYMPH # 0.6 10^3/uL (1.5-5.0); LYMPH % 6.5 % (24.0-44.0); MEAN CORPUSCULAR HEMOGLOBIN 30.4 pg (27.0-33.0); MEAN CORPUSCULAR HGB CONC 30.5 g/dl (32.0-36.5); MEAN CORPUSCULAR VOLUME 99.6 fl (80.0-96.0); MONO # 0.6 10^3/uL (0.0-0.8); MONO % 6.7 % (2.0-8.0); NEUTROPHILS # 8.1 10^3/uL (1.5-8.5); NEUTROPHILS % 85.7 % (36.0-66.0); PLATELET COUNT, AUTOMATED 182 10^3/uL (150-450); RED BLOOD COUNT 2.76 10^6/uL (4.30-6.10); WHITE BLOOD COUNT 9.5 10^3/uL (4.0-10.0)
[2022-05-29 06:40] LABS: CALCIUM LEVEL 8.5 MG/DL (8.3-10.6); CREATININE FOR GFR 1.45 MG/DL (0.70-1.30); DIGOXIN LEVEL 1.5 NG/ML (0.8-2.0); POTASSIUM SERUM 4.9 MMOL/L (3.5-5.1)
[2022-05-29] MEDS: PANTOPRAZOLE 40MG VIAL IV SCH ×2 (08:10→20:35)
[2022-05-29] MEDS: GABAPENTIN 100 MG CAP PO SCH ×3 (08:11→20:35)
[2022-05-29] MEDS: NYSTATIN CREAM 15GM TOP SCH ×2 (08:11→20:35)
[2022-05-29] MEDS: TAMSULOSIN 0.4 MG CAP PO SCH ×2 (08:12→20:35)
[2022-05-29] MEDS: ALVIMOPAN 12 MG CAPSULE (ENTEREG) PO SCH ×2 (08:12→20:35)
[2022-05-29] MEDS: predniSONE 20 MG TAB PO SCH (08:12)
[2022-05-29] MEDS: METOPROLOL TART 12.5 MG PER 1/2 TAB PO SCH ×2 (08:12→20:49)
[2022-05-29] MEDS: MIDODRINE 5 MG TAB PO SCH ×3 (08:13→15:23)
[2022-05-29] MEDS: TIOTROPIUM INHALER/CAPSULE (SPIRIVA) INH SCH (08:49)
[2022-05-29] MEDS: ADVAIR HFA 230/21MCG INHALER INH SCH ×2 (08:50→20:02)
[2022-05-29] MEDS ORDERED: FUROSEMIDE 20MG/2ML VIAL IV ONE (15:00)
[2022-05-29] MEDS: ROSUVASTATIN 10 MG TAB (CRESTOR) PO SCH (20:34)
[2022-05-29] MEDS: MULTIVITAMINS/MINERALS THERAP 1 TAB PO SCH (20:34)
[2022-05-30] VITALS (23 sets, daily range): BP systolic 96–120; BP diastolic 50–59; O2SAT 93–98
[2022-05-30] MEDS: LEVOTHYROXINE 125MCG TABLET (0.125MG) PO SCH (05:13)
[2022-05-30 06:15] LABS: BASO % 0.1 % (0.0-1.0); EOS % 0.1 % (0.0-3.0); HEMATOCRIT 27.7 % (42.0-52.0); HEMOGLOBIN 8.6 g/dl (13.5-17.5); LYMPH # 0.9 10^3/uL (1.5-5.0); LYMPH % 6.6 % (24.0-44.0); MONO # 0.9 10^3/uL (0.0-0.8); MONO % 6.9 % (2.0-8.0); NEUTROPHILS # 11.6 10^3/uL (1.5-8.5); NEUTROPHILS % 85.6 % (36.0-66.0); PLATELET COUNT, AUTOMATED 207 10^3/uL (150-450); RED BLOOD COUNT 2.77 10^6/uL (4.30-6.10); WHITE BLOOD COUNT 13.5 10^3/uL (4.0-10.0)
[2022-05-30 07:01] LABS: CALCIUM LEVEL 8.2 MG/DL (8.3-10.6); CREATININE FOR GFR 1.3 MG/DL (0.70-1.30); GLOMERULAR FILTRATION RATE 55.6 (>35); POTASSIUM SERUM 4.7 MMOL/L (3.5-5.1)
[2022-05-30] MEDS: ADVAIR HFA 230/21MCG INHALER INH SCH ×2 (07:25→19:25)
[2022-05-30] MEDS: TIOTROPIUM INHALER/CAPSULE (SPIRIVA) INH SCH (07:25)
[2022-05-30] MEDS ORDERED: DIGOXIN 0.125 MG TAB PO SCH (09:00)
[2022-05-30] MEDS: APIXABAN 2.5 MG TAB (ELIQUIS) PO SCH ×2 (09:00→20:31)
[2022-05-30] MEDS: TAMSULOSIN 0.4 MG CAP PO SCH ×2 (09:20→20:31)
[2022-05-30] MEDS: PANTOPRAZOLE 40MG VIAL IV SCH ×2 (09:20→20:30)
[2022-05-30] MEDS: METOPROLOL TART 12.5 MG PER 1/2 TAB PO SCH ×2 (09:20→20:31)
[2022-05-30] MEDS: predniSONE 20 MG TAB PO SCH (09:20)
[2022-05-30] MEDS: GABAPENTIN 100 MG CAP PO SCH ×3 (09:21→20:31)
[2022-05-30] MEDS: MIDODRINE 5 MG TAB PO SCH ×3 (09:21→16:35)
[2022-05-30] MEDS: NYSTATIN CREAM 15GM TOP SCH ×2 (09:22→20:33)
[2022-05-30] MEDS: ROSUVASTATIN 10 MG TAB (CRESTOR) PO SCH (20:31)
[2022-05-30] MEDS: MULTIVITAMINS/MINERALS THERAP 1 TAB PO SCH (20:31)
[2022-05-31] VITALS (22 sets, daily range): BP systolic 106–124; BP diastolic 56–60; O2SAT 85–99
[2022-05-31 05:34] LABS: HEMATOCRIT 27.7 % (42.0-52.0); HEMOGLOBIN 8.6 g/dl (13.5-17.5); MEAN CORPUSCULAR HEMOGLOBIN 30.3 pg (27.0-33.0); MEAN CORPUSCULAR VOLUME 97.5 fl (80.0-96.0); PLATELET COUNT, AUTOMATED 234 10^3/uL (150-450); RED BLOOD COUNT 2.84 10^6/uL (4.30-6.10); WHITE BLOOD COUNT 12.3 10^3/uL (4.0-10.0)
[2022-05-31] MEDS: LEVOTHYROXINE 125MCG TABLET (0.125MG) PO SCH (05:52)
[2022-05-31] MEDS: TIOTROPIUM INHALER/CAPSULE (SPIRIVA) INH SCH (07:23)
[2022-05-31] MEDS: ADVAIR HFA 230/21MCG INHALER INH SCH ×2 (07:23→20:48)
[2022-05-31] MEDS ORDERED: FUROSEMIDE 20MG/2ML VIAL IV ONE ×2 (08:30→18:00)
[2022-05-31] MEDS: PANTOPRAZOLE 40MG VIAL IV SCH ×2 (09:02→20:41)
[2022-05-31] MEDS: TAMSULOSIN 0.4 MG CAP PO SCH ×2 (09:03→20:39)
[2022-05-31] MEDS: METOPROLOL TART 12.5 MG PER 1/2 TAB PO SCH ×2 (09:04→20:52)
[2022-05-31] MEDS: APIXABAN 2.5 MG TAB (ELIQUIS) PO SCH ×2 (09:05→20:39)
[2022-05-31] MEDS: predniSONE 10MG TAB PO SCH (09:05)
[2022-05-31] MEDS: MIDODRINE 5 MG TAB PO SCH ×3 (09:05→15:46)
[2022-05-31] MEDS: GABAPENTIN 100 MG CAP PO SCH ×3 (09:05→20:39)
[2022-05-31] MEDS: DIGOXIN 0.125 MG TAB PO SCH (09:07)
[2022-05-31] MEDS: NYSTATIN CREAM 15GM TOP SCH ×2 (09:08→20:40)
[2022-05-31 10:58] LABS: BLOOD UREA NITROGEN 44 MG/DL (9-23); CALCIUM LEVEL 8.4 MG/DL (8.3-10.6); CARBON DIOXIDE LEVEL 37 MMOL/L (20-31); CHLORIDE LEVEL 101 MMOL/L (98-107); CREATININE FOR GFR 1.14 MG/DL (0.70-1.30); GLOMERULAR FILTRATION RATE > 60.0 (>35); GLUCOSE, FASTING 124 MG/DL (74-106); POTASSIUM SERUM 4.3 MMOL/L (3.5-5.1); SODIUM LEVEL 140 MMOL/L (136-145)
[2022-05-31 11:16] LABS: MAGNESIUM LEVEL 1.8 MG/DL (1.8-2.4)
[2022-05-31] MEDS ORDERED: MAG SULF 1GM/100ML (MAG RUN) 1 GM in IV 1 EA IV ONE (17:00)
[2022-05-31] MEDS: MULTIVITAMINS/MINERALS THERAP 1 TAB PO SCH (20:39)
[2022-05-31] MEDS: ROSUVASTATIN 10 MG TAB (CRESTOR) PO SCH (20:40)
[2022-06-01] VITALS (25 sets, daily range): BP systolic 84–121; BP diastolic 46–58; O2SAT 87–98
[2022-06-01] MEDS: LEVOTHYROXINE 125MCG TABLET (0.125MG) PO SCH (05:46)
[2022-06-01 06:58] LABS: BASO % 0.1 % (0.0-1.0); EOS # 0.1 10^3/uL (0.0-0.5); EOS % 0.4 % (0.0-3.0); HEMATOCRIT 29.9 % (42.0-52.0); HEMOGLOBIN 9.2 g/dl (13.5-17.5); LYMPH # 1.1 10^3/uL (1.5-5.0); LYMPH % 8.3 % (24.0-44.0); MEAN CORPUSCULAR HEMOGLOBIN 30.6 pg (27.0-33.0); MEAN CORPUSCULAR HGB CONC 30.8 g/dl (32.0-36.5); MEAN CORPUSCULAR VOLUME 99.3 fl (80.0-96.0); MONO # 1.1 10^3/uL (0.0-0.8); MONO % 7.9 % (2.0-8.0); NEUTROPHILS # 11.1 10^3/uL (1.5-8.5); NEUTROPHILS % 82.4 % (36.0-66.0); PLATELET COUNT, AUTOMATED 276 10^3/uL (150-450); RED BLOOD COUNT 3.01 10^6/uL (4.30-6.10); WHITE BLOOD COUNT 13.5 10^3/uL (4.0-10.0)
[2022-06-01 07:22] LABS: CALCIUM LEVEL 8.4 MG/DL (8.3-10.6); CREATININE FOR GFR 1.39 MG/DL (0.70-1.30); GLOMERULAR FILTRATION RATE 51.5 (>35); POTASSIUM SERUM 4.5 MMOL/L (3.5-5.1)
[2022-06-01] MEDS: ADVAIR HFA 230/21MCG INHALER INH SCH ×2 (07:24→19:53)
[2022-06-01] MEDS: TIOTROPIUM INHALER/CAPSULE (SPIRIVA) INH SCH (07:24)
[2022-06-01] MEDS: APIXABAN 2.5 MG TAB (ELIQUIS) PO SCH ×2 (09:29→20:07)
[2022-06-01] MEDS: PANTOPRAZOLE 40MG VIAL IV SCH ×2 (09:29→20:08)
[2022-06-01] MEDS: GABAPENTIN 100 MG CAP PO SCH ×3 (09:30→20:07)
[2022-06-01] MEDS: METOPROLOL TART 12.5 MG PER 1/2 TAB PO SCH ×2 (09:30→20:12)
[2022-06-01] MEDS: predniSONE 10MG TAB PO SCH (09:30)
[2022-06-01] MEDS: TAMSULOSIN 0.4 MG CAP PO SCH ×2 (09:30→20:07)
[2022-06-01] MEDS: NYSTATIN CREAM 15GM TOP SCH ×2 (09:30→20:07)
[2022-06-01] MEDS: MIDODRINE 5 MG TAB PO SCH ×3 (09:33→16:56)
[2022-06-01] MEDS: DIGOXIN 0.125 MG TAB PO SCH (09:35)
[2022-06-01] MEDS: ROSUVASTATIN 10 MG TAB (CRESTOR) PO SCH (20:06)
[2022-06-01] MEDS: MULTIVITAMINS/MINERALS THERAP 1 TAB PO SCH (20:07)
[2022-06-02] VITALS (28 sets, daily range): BP systolic 92–110; BP diastolic 55–60; O2SAT 91–100
[2022-06-02] MEDS: LEVOTHYROXINE 125MCG TABLET (0.125MG) PO SCH (05:02)
[2022-06-02 06:16] LABS: BASO % 0.1 % (0.0-1.0); EOS # 0.1 10^3/uL (0.0-0.5); EOS % 0.5 % (0.0-3.0); HEMATOCRIT 28.9 % (42.0-52.0); HEMOGLOBIN 8.9 g/dl (13.5-17.5); LYMPH # 1.3 10^3/uL (1.5-5.0); LYMPH % 9.9 % (24.0-44.0); MEAN CORPUSCULAR HGB CONC 30.8 g/dl (32.0-36.5); MEAN CORPUSCULAR VOLUME 100.7 fl (80.0-96.0); MONO % 7.7 % (2.0-8.0); NEUTROPHILS # 10.2 10^3/uL (1.5-8.5); PLATELET COUNT, AUTOMATED 276 10^3/uL (150-450); RED BLOOD COUNT 2.87 10^6/uL (4.30-6.10); WHITE BLOOD COUNT 12.6 10^3/uL (4.0-10.0)
[2022-06-02 06:40] LABS: CALCIUM LEVEL 8.3 MG/DL (8.3-10.6); CREATININE FOR GFR 1.33 MG/DL (0.70-1.30); GLOMERULAR FILTRATION RATE 54.1 (>35); MAGNESIUM LEVEL 1.9 MG/DL (1.8-2.4); POTASSIUM SERUM 4.8 MMOL/L (3.5-5.1)
[2022-06-02] MEDS: TIOTROPIUM INHALER/CAPSULE (SPIRIVA) INH SCH (07:43)
[2022-06-02] MEDS: ADVAIR HFA 230/21MCG INHALER INH SCH ×2 (07:43→20:44)
[2022-06-02] MEDS: PANTOPRAZOLE 40MG VIAL IV SCH ×2 (08:58→21:27)
[2022-06-02] MEDS: GABAPENTIN 100 MG CAP PO SCH ×3 (08:59→21:28)
[2022-06-02] MEDS: MIDODRINE 5 MG TAB PO SCH ×3 (08:59→16:16)
[2022-06-02] MEDS: predniSONE 10MG TAB PO SCH (08:59)
[2022-06-02] MEDS: TAMSULOSIN 0.4 MG CAP PO SCH ×2 (08:59→21:28)
[2022-06-02] MEDS: APIXABAN 2.5 MG TAB (ELIQUIS) PO SCH ×2 (09:00→21:28)
[2022-06-02] MEDS: METOPROLOL TART 12.5 MG PER 1/2 TAB PO SCH ×2 (09:00→21:28)
[2022-06-02] MEDS: NYSTATIN CREAM 15GM TOP SCH ×2 (09:02→21:29)
[2022-06-02] MEDS: DIGOXIN 0.125 MG TAB PO SCH (09:02)
[2022-06-02] MEDS ORDERED: DIGOXIN INJ 0.5 MG/2 ML AMP IV ONE (15:35)
[2022-06-02] MEDS ORDERED: ACETAMINOPHEN TAB 650MG DOSE (2X325MG) PO PRN (17:35)
[2022-06-02] MEDS: MULTIVITAMINS/MINERALS THERAP 1 TAB PO SCH (21:28)
[2022-06-02] MEDS: ROSUVASTATIN 10 MG TAB (CRESTOR) PO SCH (21:28)
[2022-06-03] VITALS (13 sets, daily range): BP systolic 91–117; BP diastolic 53–59; O2SAT 89–100
[2022-06-03] MEDS: LEVOTHYROXINE 125MCG TABLET (0.125MG) PO SCH (05:44)
[2022-06-03 05:54] LABS: BASO % 0.1 % (0.0-1.0); EOS # 0.1 10^3/uL (0.0-0.5); EOS % 1.1 % (0.0-3.0); HEMATOCRIT 28.7 % (42.0-52.0); HEMOGLOBIN 8.9 g/dl (13.5-17.5); LYMPH # 1.4 10^3/uL (1.5-5.0); LYMPH % 11.6 % (24.0-44.0); MONO # 1.1 10^3/uL (0.0-0.8); MONO % 8.8 % (2.0-8.0); NEUTROPHILS # 9.5 10^3/uL (1.5-8.5); NEUTROPHILS % 77.7 % (36.0-66.0); PLATELET COUNT, AUTOMATED 262 10^3/uL (150-450); RED BLOOD COUNT 2.87 10^6/uL (4.30-6.10); WHITE BLOOD COUNT 12.2 10^3/uL (4.0-10.0)
[2022-06-03 06:24] LABS: CALCIUM LEVEL 8.1 MG/DL (8.3-10.6); CREATININE FOR GFR 1.28 MG/DL (0.70-1.30); GLOMERULAR FILTRATION RATE 56.6 (>35); MAGNESIUM LEVEL 1.9 MG/DL (1.8-2.4); POTASSIUM SERUM 4.9 MMOL/L (3.5-5.1)
[2022-06-03] MEDS: ADVAIR HFA 230/21MCG INHALER INH SCH (08:57)
[2022-06-03] MEDS: TIOTROPIUM INHALER/CAPSULE (SPIRIVA) INH SCH (08:57)
[2022-06-03] MEDS ORDERED: predniSONE 20 MG TAB PO SCH (09:00)
[2022-06-03] MEDS: GABAPENTIN 100 MG CAP PO SCH (09:35)
[2022-06-03] MEDS: METOPROLOL TART 12.5 MG PER 1/2 TAB PO SCH (09:35)
[2022-06-03] MEDS: MIDODRINE 5 MG TAB PO SCH ×2 (09:35→11:47)
[2022-06-03] MEDS: APIXABAN 2.5 MG TAB (ELIQUIS) PO SCH (09:35)
[2022-06-03] MEDS: PANTOPRAZOLE 40MG VIAL IV SCH (09:35)
[2022-06-03] MEDS: TAMSULOSIN 0.4 MG CAP PO SCH (09:35)
[2022-06-03] MEDS: DIGOXIN 0.125 MG TAB PO SCH (09:35)
[2022-06-03] MEDS: NYSTATIN CREAM 15GM TOP SCH (09:58)
[2022-06-03] MEDS ORDERED: MIDO5TA PO (11:28)
[2022-06-03] MEDS ORDERED: PRED10TA2 PO (11:28)
[2022-06-03] MEDS ORDERED: FLOM0.4C39 PO (11:37)
[2022-06-03] MEDS ORDERED: METO25TA PO (13:40)
[2022-06-06] MEDS ORDERED: predniSONE 10MG TAB PO SCH (09:00)
== END 2022-06-03 15:18 | disposition home health service (06) | DRG 329 ==
LOC: M ED 17:45 → M ED INP 20:24 → ENRESERV 21:02 → M PCU 22:32
PROVIDERS: ADMIT Surgery; ATTEND Surgery
PROC: 0YQ54ZZ Repair Right Inguinal Region, Percutaneous Endoscopic Approach (ICD-10-PCS; 2022-05-24)
PROC: 0DB84ZZ Excision of Small Intestine, Percutaneous Endoscopic Approach (ICD-10-PCS; principal; 2022-05-24 11:00)
PROC: 30233N1 Transfusion of Nonautologous Red Blood Cells into Peripheral Vein, Percutaneous Approach (ICD-10-PCS; 2022-05-28)
DX: K40.40 Unilateral inguinal hernia, with gangrene, not specified as recurrent (principal); J96.21 Acute and chronic respiratory failure with hypoxia; I13.0 Hypertensive heart and chronic kidney disease with heart failure and stage 1 through stage 4 chronic kidney disease, or unspecified chronic kidney disease; I50.22 Chronic systolic (congestive) heart failure; I45.2 Bifascicular block; K56.7 Ileus, unspecified; D62 Acute posthemorrhagic anemia; Z66 Do not resuscitate; I48.0 Paroxysmal atrial fibrillation; I25.10 Atherosclerotic heart disease of native coronary artery without angina pectoris; I25.5 Ischemic cardiomyopathy; I27.20 Pulmonary hypertension, unspecified; K21.9 Gastro-esophageal reflux disease without esophagitis; K44.9 Diaphragmatic hernia without obstruction or gangrene; K59.00 Constipation, unspecified; I44.0 Atrioventricular block, first degree; I45.10 Unspecified right bundle-branch block; J44.9 Chronic obstructive pulmonary disease, unspecified; R21 Rash and other nonspecific skin eruption; K80.20 Calculus of gallbladder without cholecystitis without obstruction; J84.10 Pulmonary fibrosis, unspecified; N40.0 Benign prostatic hyperplasia without lower urinary tract symptoms; E03.9 Hypothyroidism, unspecified; E78.5 Hyperlipidemia, unspecified; G89.29 Other chronic pain; I95.9 Hypotension, unspecified; N18.30 Chronic kidney disease, stage 3 unspecified; Z87.891 Personal history of nicotine dependence; Z95.5 Presence of coronary angioplasty implant and graft; Z20.822 Contact with and (suspected) exposure to COVID-19; Z79.01 Long term (current) use of anticoagulants; Z79.890 Hormone replacement therapy; Z79.899 Other long term (current) drug therapy; I25.2 Old myocardial infarction; Z99.81 Dependence on supplemental oxygen

== ENCOUNTER → 2022-06-07 | Outpatient (REF) | payer MEDICARE ==
[~2022-06-07] MED LIST changes: +METO25TA PO; +MIDO5TA PO
[2022-06-07 15:37] LABS: CALCIUM LEVEL 8.1 MG/DL (8.3-10.6); CREATININE FOR GFR 1.46 MG/DL (0.70-1.30); GLOMERULAR FILTRATION RATE 48.5 (>35); POTASSIUM SERUM 3.8 MMOL/L (3.5-5.1)
== END ==
LOC: M SHH 15:14
PROVIDERS: ATTEND Surgery
DX: E87.79 Other fluid overload (principal)

== ENCOUNTER 2022-06-09 20:53 | Emergency (ER) | payer MEDICARE ==
[~2022-06-09] VITALS: Ht 165.1 cm; Wt 57.0 kg
[2022-06-09 23:31] VITALS: BP 114/65
== END 2022-06-10 02:17 | disposition home or self-care (01) ==
LOC: M ED 20:53
DX: T83.028A Displacement of other urinary catheter, initial encounter (principal); I10 Essential (primary) hypertension; J44.9 Chronic obstructive pulmonary disease, unspecified; Z86.79 Personal history of other diseases of the circulatory system; Z79.01 Long term (current) use of anticoagulants; Z79.52 Long term (current) use of systemic steroids; Z79.891 Long term (current) use of opiate analgesic; Z79.899 Other long term (current) drug therapy

== ENCOUNTER → 2022-06-26 | Outpatient (REF) | payer MEDICARE, OTHER | LOC: M LAB REF 17:47 | PROVIDERS: ATTEND Internal Medicine Pulmonary Disease | DX: J44.9 Chronic obstructive pulmonary disease, unspecified (principal) ==

== ENCOUNTER 2022-07-01 14:18 | Inpatient (IN) | payer OTHER, MEDICARE ==
[2022-06-30 22:53] VITALS: BP 110/60
[~2022-07-01] VITALS: Ht 167.6 cm; Wt 56.1 kg
[2022-07-01 15:24] LABS: BASO # 0.1 10^3/uL (0.0-0.2); BASO % 0.6 % (0.0-1.0); EOS % 0.2 % (0.0-3.0); HEMATOCRIT 30.1 % (42.0-52.0); HEMOGLOBIN 9.4 g/dl (13.5-17.5); LYMPH # 0.7 10^3/uL (1.5-5.0); LYMPH % 7.1 % (24.0-44.0); MEAN CORPUSCULAR HEMOGLOBIN 29.7 pg (27.0-33.0); MEAN CORPUSCULAR HGB CONC 31.2 g/dl (32.0-36.5); MEAN CORPUSCULAR VOLUME 95.3 fl (80.0-96.0); MONO # 0.4 10^3/uL (0.0-0.8); MONO % 3.8 % (2.0-8.0); NEUTROPHILS # 8.4 10^3/uL (1.5-8.5); NEUTROPHILS % 87.8 % (36.0-66.0); PLATELET COUNT, AUTOMATED 409 10^3/uL (150-450); RED BLOOD COUNT 3.16 10^6/uL (4.30-6.10); WHITE BLOOD COUNT 9.6 10^3/uL (4.0-10.0)
[2022-07-01 15:38] LABS: INR 1.39; PROTHROMBIN TIME 17.3 SECONDS (12.5-14.5)
[2022-07-01 15:39] LABS: PARTIAL THROMBOPLASTIN TIME 39.4 SECONDS (24.8-34.2)
[2022-07-01 15:53] LABS: ALBUMIN 2.5 G/DL (3.2-5.2); BILIRUBIN,DIRECT 0.2 MG/DL (<0.4); BILIRUBIN,TOTAL 0.3 MG/DL (0.3-1.2); CALCIUM LEVEL 8.9 MG/DL (8.3-10.6); CREATININE FOR GFR 1.79 MG/DL (0.70-1.30); GLOMERULAR FILTRATION RATE 38.3 (>35); POTASSIUM SERUM 3.8 MMOL/L (3.5-5.1); TOTAL PROTEIN 5.8 G/DL (5.7-8.2)
[2022-07-01 18:06] LABS: RSV AMPLIFICATION NEGATIVE (NEGATIVE)
[2022-07-01 18:29] LABS: DIGOXIN LEVEL 1.8 NG/ML (0.8-2.0)
[2022-07-01] MEDS ORDERED: MIDO2.5T PO (19:58)
[2022-07-01] MEDS ORDERED: TAMS1CAP17 PO (19:58)
[2022-07-01] MEDS ORDERED: D 101000 PO (19:58)
[2022-07-01] MEDS ORDERED: HOME MED LIST COMPLETE! XX SCH (20:00)
[2022-07-01] MEDS: PANTOPRAZOLE 40MG VIAL IV SCH (21:37)
[2022-07-01 22:53] VITALS: BP 110/60
[2022-07-02 00:37] LABS: HEMATOCRIT 28.2 % (42.0-52.0); HEMOGLOBIN 8.5 g/dl (13.5-17.5)
[2022-07-02] MEDS ORDERED: IPRATROPIUM 0.5MG/ALBUTEROL 2.5MG INH SOL UD 3ML (DUONEB) INH PRN (03:40)
[2022-07-02 05:24] VITALS: BP 104/58
[2022-07-02] MEDS: LEVOTHYROXINE 125MCG TABLET (0.125MG) PO SCH (05:27)
[2022-07-02] MEDS: ACETAMINOPHEN 500 MG TAB PO SCH ×2 (05:31→20:44)
[2022-07-02 06:26] LABS: HEMATOCRIT 26.6 % (42.0-52.0); HEMOGLOBIN 8.2 g/dl (13.5-17.5); MEAN CORPUSCULAR HEMOGLOBIN 29.4 pg (27.0-33.0); MEAN CORPUSCULAR HGB CONC 30.8 g/dl (32.0-36.5); MEAN CORPUSCULAR VOLUME 95.3 fl (80.0-96.0); PLATELET COUNT, AUTOMATED 353 10^3/uL (150-450); RED BLOOD COUNT 2.79 10^6/uL (4.30-6.10); WHITE BLOOD COUNT 8.4 10^3/uL (4.0-10.0)
[2022-07-02 06:56] LABS: ALKALINE PHOSPHATASE 94 U/L (46-116); ALT/SGPT 18 U/L (7.0-40); AST/SGOT 24 U/L (<34); BILIRUBIN,TOTAL 0.4 MG/DL (0.3-1.2); BLOOD UREA NITROGEN 28 MG/DL (9-23); CALCIUM LEVEL 8.5 MG/DL (8.3-10.6); CARBON DIOXIDE LEVEL > 40.0 MMOL/L (20-31); CHLORIDE LEVEL 98 MMOL/L (98-107); CREATININE FOR GFR 1.83 MG/DL (0.70-1.30); GLOMERULAR FILTRATION RATE 37.4 (>35); GLUCOSE, FASTING 91 MG/DL (74-106); MAGNESIUM LEVEL 2.2 MG/DL (1.8-2.4); POTASSIUM SERUM 4.2 MMOL/L (3.5-5.1); SODIUM LEVEL 140 MMOL/L (136-145); TOTAL PROTEIN 4.8 G/DL (5.7-8.2)
[2022-07-02] MEDS ORDERED: MIDODRINE 2.5 MG TAB PO SCH ×2 (08:00→12:00)
[2022-07-02] MEDS: PANTOPRAZOLE 40MG VIAL IV SCH ×2 (08:01→20:43)
[2022-07-02] MEDS: METOPROLOL SUCC *XL* 25MG TAB (TopROL *XL*) PO SCH (08:01)
[2022-07-02] MEDS: POTASSIUM CHLORIDE 10MEQ SR TABLET PO SCH (08:01)
[2022-07-02] MEDS: TAMSULOSIN 0.4 MG CAP PO SCH (08:01)
[2022-07-02] MEDS: DIGOXIN 0.125 MG TAB PO SCH (08:08)
[2022-07-02] MEDS: FUROSEMIDE 40 MG TAB PO SCH (08:10)
[2022-07-02] MEDS ORDERED: MIDODRINE 5 MG TAB PO ONE (08:15)
[2022-07-02] MEDS: TIOTROPIUM INHALER/CAPSULE (SPIRIVA) INH SCH (09:47)
[2022-07-02 11:29] LABS: HEMATOCRIT 28.1 % (42.0-52.0); HEMOGLOBIN 8.6 g/dl (13.5-17.5)
[2022-07-02] MEDS: MIDODRINE 2.5 MG TAB PO SCH ×2 (12:58→16:27)
[2022-07-02 14:00] VITALS: BP 127/72
[2022-07-02] MEDS: ACETAMINOPHEN TAB 650MG DOSE (2X325MG) PO PRN (16:29)
[2022-07-02 18:15] LABS: HEMATOCRIT 28.6 % (42.0-52.0); HEMOGLOBIN 8.5 g/dl (13.5-17.5)
[2022-07-02 21:00] VITALS: BP 110/58
[2022-07-02] MEDS ORDERED: ROSUVASTATIN 10 MG TAB (CRESTOR) PO SCH (21:00)
[2022-07-02] MEDS ORDERED: MULTIVITAMINS/MINERALS THERAP 1 TAB PO SCH (21:00)
[2022-07-03] VITALS (8 sets, daily range): BP systolic 96–116; BP diastolic 42–60; O2SAT 97
[2022-07-03] MEDS: ACETAMINOPHEN TAB 650MG DOSE (2X325MG) PO PRN (01:20)
[2022-07-03 01:27] LABS: HEMOGLOBIN 8.4 g/dl (13.5-17.5)
[2022-07-03] MEDS: LEVOTHYROXINE 125MCG TABLET (0.125MG) PO SCH (05:43)
[2022-07-03 06:23] LABS: BASO # 0.1 10^3/uL (0.0-0.2); BASO % 1.4 % (0.0-1.0); EOS # 0.3 10^3/uL (0.0-0.5); EOS % 3.2 % (0.0-3.0); HEMATOCRIT 28.7 % (42.0-52.0); HEMOGLOBIN 8.6 g/dl (13.5-17.5); LYMPH # 1.3 10^3/uL (1.5-5.0); LYMPH % 16.6 % (24.0-44.0); MEAN CORPUSCULAR HEMOGLOBIN 29.2 pg (27.0-33.0); MEAN CORPUSCULAR VOLUME 97.3 fl (80.0-96.0); MONO # 0.8 10^3/uL (0.0-0.8); MONO % 10.3 % (2.0-8.0); NEUTROPHILS # 5.4 10^3/uL (1.5-8.5); NEUTROPHILS % 68.1 % (36.0-66.0); PLATELET COUNT, AUTOMATED 351 10^3/uL (150-450); RED BLOOD COUNT 2.95 10^6/uL (4.30-6.10); WHITE BLOOD COUNT 7.9 10^3/uL (4.0-10.0)
[2022-07-03 06:52] LABS: IRON (FE) 23 UG/DL (65-175); PERCENT SATURATION 10.7 % (19.7-50.0); TOTAL IRON BINDING CAPACITY 214 UG/DL (250-425)
[2022-07-03 07:04] LABS: BLOOD UREA NITROGEN 24 MG/DL (9-23); CALCIUM LEVEL 9.1 MG/DL (8.3-10.6); CARBON DIOXIDE LEVEL > 40.0 MMOL/L (20-31); CHLORIDE LEVEL 101 MMOL/L (98-107); CREATININE FOR GFR 1.75 MG/DL (0.70-1.30); FERRITIN 87.4 NG/ML (10.5-307.3); GLOMERULAR FILTRATION RATE 39.4 (>35); GLUCOSE, FASTING 80 MG/DL (74-106); MAGNESIUM LEVEL 1.9 MG/DL (1.8-2.4); SODIUM LEVEL 141 MMOL/L (136-145)
[2022-07-03] MEDS: TIOTROPIUM INHALER/CAPSULE (SPIRIVA) INH SCH (07:31)
[2022-07-03] MEDS ORDERED: ADVAIR HFA 230/21MCG INHALER INH SCH (08:00)
[2022-07-03] MEDS: FUROSEMIDE 40 MG TAB PO SCH (09:00)
[2022-07-03] MEDS: METOPROLOL SUCC *XL* 25MG TAB (TopROL *XL*) PO SCH ×2 (09:00→13:28)
[2022-07-03] MEDS ORDERED: APIXABAN 2.5 MG TAB (ELIQUIS) PO SCH (09:00)
[2022-07-03] MEDS: POTASSIUM CHLORIDE 10MEQ SR TABLET PO SCH (09:19)
[2022-07-03] MEDS: PANTOPRAZOLE 40MG VIAL IV SCH (09:19)
[2022-07-03] MEDS: TAMSULOSIN 0.4 MG CAP PO SCH (09:19)
[2022-07-03] MEDS: MIDODRINE 2.5 MG TAB PO SCH ×2 (09:21→12:24)
[2022-07-03] MEDS: DIGOXIN 0.125 MG TAB PO SCH (09:22)
[2022-07-03] MEDS ORDERED: FERRIC CARBOXYMALTOSE INJ 750 MG, VIAL MATE ADAPTER 1 EACH in NS 250 ML IV ONE (12:00)
[2022-07-03] MEDS ORDERED: FERR325T3 PO (16:09)
== END 2022-07-03 15:48 | disposition home health service (06) | DRG 378 ==
LOC: M ED 14:18 → M ED INP 19:25 → ENRESERV 22:10 → M MSPAV 22:50
PROVIDERS: ADMIT Internal Medicine; ATTEND Internal Medicine
DX: K62.5 Hemorrhage of anus and rectum (principal); J96.11 Chronic respiratory failure with hypoxia; J84.9 Interstitial pulmonary disease, unspecified; N17.9 Acute kidney failure, unspecified; I50.22 Chronic systolic (congestive) heart failure; I13.0 Hypertensive heart and chronic kidney disease with heart failure and stage 1 through stage 4 chronic kidney disease, or unspecified chronic kidney disease; E78.5 Hyperlipidemia, unspecified; I25.10 Atherosclerotic heart disease of native coronary artery without angina pectoris; H91.93 Unspecified hearing loss, bilateral; G89.29 Other chronic pain; E03.9 Hypothyroidism, unspecified; D50.0 Iron deficiency anemia secondary to blood loss (chronic); I48.0 Paroxysmal atrial fibrillation; Z66 Do not resuscitate; I25.5 Ischemic cardiomyopathy; J44.9 Chronic obstructive pulmonary disease, unspecified; N40.0 Benign prostatic hyperplasia without lower urinary tract symptoms; I95.9 Hypotension, unspecified; K57.90 Diverticulosis of intestine, part unspecified, without perforation or abscess without bleeding; I27.20 Pulmonary hypertension, unspecified; K21.9 Gastro-esophageal reflux disease without esophagitis; Z99.81 Dependence on supplemental oxygen; Z97.4 Presence of external hearing-aid; Z79.01 Long term (current) use of anticoagulants; Z79.899 Other long term (current) drug therapy; Z79.890 Hormone replacement therapy; Z86.73 Personal history of transient ischemic attack (TIA), and cerebral infarction without residual deficits; N18.30 Chronic kidney disease, stage 3 unspecified; Z95.5 Presence of coronary angioplasty implant and graft; Z87.891 Personal history of nicotine dependence; Z90.49 Acquired absence of other specified parts of digestive tract

== ENCOUNTER 2022-09-12 20:22 | Inpatient (IN) | payer MEDICARE, OTHER ==
[~2022-09-12] VITALS: Ht 167.6 cm; Wt 47.2 kg
[~2022-09-12 20:22] MED LIST changes: +D 101000 PO; +FERR325T3 PO; -K-TA10TA PO; +POTA-164 PO; +TAMS1CAP17 PO
[2022-09-12] MEDS ORDERED: IPRATROPIUM 0.5MG/ALBUTEROL 2.5MG INH SOL UD 3ML (DUONEB) NEB ONE (21:15)
[2022-09-12 21:19] LABS: BASO % 0.5 % (0.0-1.0); EOS % 0.3 % (0.0-3.0); HEMATOCRIT 34.8 % (42.0-52.0); HEMOGLOBIN 10.6 g/dl (13.5-17.5); LYMPH % 13.1 % (24.0-44.0); MEAN CORPUSCULAR HEMOGLOBIN 30.2 pg (27.0-33.0); MEAN CORPUSCULAR HGB CONC 30.5 g/dl (32.0-36.5); MEAN CORPUSCULAR VOLUME 99.1 fl (80.0-96.0); MONO # 0.9 10^3/uL (0.0-0.8); MONO % 10.9 % (2.0-8.0); NEUTROPHILS # 5.9 10^3/uL (1.5-8.5); NEUTROPHILS % 74.8 % (36.0-66.0); PLATELET COUNT, AUTOMATED 187 10^3/uL (150-450); RED BLOOD COUNT 3.51 10^6/uL (4.30-6.10); WHITE BLOOD COUNT 7.9 10^3/uL (4.0-10.0)
[2022-09-12 21:30] LABS: INR 1.29; PROTHROMBIN TIME 16.3 SECONDS (12.5-14.5)
[2022-09-12] MEDS ORDERED: FUROSEMIDE 40MG/4ML VIAL IV ONE (21:35)
[2022-09-12 21:43] LABS: ABG BASE EXCESS 5.6 (-2.0-2.0); ABG HCO3 30.5 MMOL/L (22.0-26.0); ABG O2 SATURATION 98.9 % (95.0-99.0); ABG PARTIAL PRESSURE CO2 45.7 mmHg (35.0-45.0); ABG PARTIAL PRESSURE O2 155.7 mmHg (75.0-100.0); ABG STANDARD HCO3 29.6 MMOL/L. (22.0-26.0); ABG TOTAL CO2 31.9 MMOL/L (23.0-31.0); ABG pH (ARTERIAL) 7.442 UNITS (7.350-7.450)
[2022-09-12 21:45] LABS: BILIRUBIN,DIRECT 0.1 MG/DL (<0.4); BILIRUBIN,TOTAL 0.3 MG/DL (0.3-1.2); CALCIUM LEVEL 9.2 MG/DL (8.3-10.6); CK-MB VALUE MASS 2.4 NG/ML (<3.6); CREATININE FOR GFR 1.68 MG/DL (0.70-1.30); DIGOXIN LEVEL 1.1 NG/ML (0.8-2.0); GLOMERULAR FILTRATION RATE 41.3 (>35); POTASSIUM SERUM 3.8 MMOL/L (3.5-5.1); TOTAL PROTEIN 6.1 G/DL (5.7-8.2)
[2022-09-12 21:47] LABS: THYROID STIMULATING HORMONE 0.449 uIU/ML (0.55-4.78)
[2022-09-12 21:58] LABS: MB/CK RELATIVE INDEX 4.21 (< OR =4)
[2022-09-12] MEDS ORDERED: ISOVUE-370 76% 100ML VIAL As Ordered ONE (22:00)
[2022-09-12 23:07] LABS: CK-MB VALUE MASS 1.9 NG/ML (<3.6)
[2022-09-12 23:09] LABS: MB/CK RELATIVE INDEX 4.31 (< OR =4)
[2022-09-12 23:51] LABS: APPEARANCE, URINE CLEAR (CLEAR); BACTERIA, URINE AUTO NEGATIVE (NEGATIVE); BILIRUBIN, URINE AUTO NEGATIVE (NEGATIVE); BLOOD, URINE BLOOD NEGATIVE (NEGATIVE); COLOR, URINE YELLOW (YELLOW); GLUCOSE, URINE (UA) AUTO NEGATIVE (NEGATIVE); KETONE, URINE AUTO NEGATIVE (NEGATIVE); LEUKOCYTE ESTERASE, URINE AUTO NEGATIVE (NEGATIVE); MUCUS, URINE SMALL (NEGATIVE); NITRITE, URINE AUTO NEGATIVE (NEGATIVE); PROTEIN, URINE AUTO NEGATIVE (NEGATIVE); RBC, URINE AUTO 0 /HPF (0-3); SPECIFIC GRAVITY URINE AUTO 1.012 (1.002-1.035); SQUAMOUS EPITHELIAL CELL UR AU 0 /HPF (0-6); UROBILINOGEN, URINE AUTO 0.2 mg/dL (0.0-2.0); WBC, URINE AUTO 1 /HPF (0-3)
[2022-09-13] VITALS (8 sets, daily range): BP systolic 94–112; BP diastolic 50–60; TEMP 97.1–98.1; O2SAT 93–100
[2022-09-13] MEDS ORDERED: GABA-282 PO (00:45)
[2022-09-13] MEDS ORDERED: FERR324T2 PO (00:45)
[2022-09-13] MEDS ORDERED: GUAI600T54 PO (00:46)
[2022-09-13] MEDS ORDERED: HOME MED LIST COMPLETE! XX SCH (00:50)
[2022-09-13] MEDS ORDERED: IPRATROPIUM 0.5MG/ALBUTEROL 2.5MG INH SOL UD 3ML (DUONEB) INH PRN (01:05)
[2022-09-13] MEDS ORDERED: ALBUTEROL 90 MCG/ACT 8GM HFA INHALER INH PRN (01:05)
[2022-09-13 05:06] LABS: HEMOGLOBIN 10.3 g/dl (13.5-17.5); MEAN CORPUSCULAR HEMOGLOBIN 30.4 pg (27.0-33.0); MEAN CORPUSCULAR HGB CONC 30.3 g/dl (32.0-36.5); MEAN CORPUSCULAR VOLUME 100.3 fl (80.0-96.0); PLATELET COUNT, AUTOMATED 175 10^3/uL (150-450); RED BLOOD COUNT 3.39 10^6/uL (4.30-6.10); WHITE BLOOD COUNT 6.5 10^3/uL (4.0-10.0)
[2022-09-13 05:15] LABS: CALCIUM LEVEL 8.9 MG/DL (8.3-10.6); CREATININE FOR GFR 1.75 MG/DL (0.70-1.30); GLOMERULAR FILTRATION RATE 39.4 (>35); POTASSIUM SERUM 3.7 MMOL/L (3.5-5.1)
[2022-09-13] MEDS: LEVOTHYROXINE 125MCG TABLET (0.125MG) PO SCH (06:28)
[2022-09-13] MEDS ORDERED: MIDODRINE 2.5 MG TAB PO SCH (08:00)
[2022-09-13] MEDS: TAMSULOSIN 0.4 MG CAP PO SCH (08:42)
[2022-09-13] MEDS: guaiFENesin ER 600 MG TAB PO SCH ×2 (08:42→21:03)
[2022-09-13] MEDS: GABAPENTIN 300 MG CAP PO SCH ×2 (08:42→21:03)
[2022-09-13] MEDS: MIDODRINE 5 MG TAB PO SCH ×3 (08:42→16:15)
[2022-09-13] MEDS: DIGOXIN 0.125 MG TAB PO SCH (08:42)
[2022-09-13] MEDS: APIXABAN 2.5 MG TAB (ELIQUIS) PO SCH ×2 (08:43→21:03)
[2022-09-13] MEDS: POTASSIUM CHLORIDE 10MEQ SR TABLET PO SCH (08:43)
[2022-09-13] MEDS: METOPROLOL SUCC *XL* 25MG TAB (TopROL *XL*) PO SCH (08:44)
[2022-09-13] MEDS: FUROSEMIDE 40MG/4ML VIAL IV SCH ×2 (10:16→17:00)
[2022-09-13] MEDS: TIOTROPIUM INHALER/CAPSULE (SPIRIVA) INH SCH (11:33)
[2022-09-13] MEDS ORDERED: LEVALBUTEROL 1.25MG 0.5ML CONCENTRATE NEB INH PRN (12:25)
[2022-09-13 15:19] LABS: MAGNESIUM LEVEL 1.8 MG/DL (1.8-2.4)
[2022-09-13] MEDS ORDERED: MAG SULF 1GM/100ML (MAG RUN) 100 ML IV ONE (16:00)
[2022-09-13] MEDS ORDERED: MAGNESIUM OXIDE 400MG TAB (MAG-OX) PO ONE (16:00)
[2022-09-13] MEDS: MULTIVITAMINS/MINERALS THERAP 1 TAB PO SCH (21:03)
[2022-09-13] MEDS: ACETAMINOPHEN 500 MG TAB PO SCH (21:03)
[2022-09-13] MEDS: ROSUVASTATIN 10 MG TAB (CRESTOR) PO SCH (21:04)
[2022-09-14] VITALS (7 sets, daily range): BP systolic 82–112; BP diastolic 42–63; TEMP 97.4–98.8; O2SAT 94–99
[2022-09-14 04:59] LABS: BASO % 0.7 % (0.0-1.0); EOS # 0.1 10^3/uL (0.0-0.5); EOS % 1.7 % (0.0-3.0); HEMATOCRIT 33.3 % (42.0-52.0); HEMOGLOBIN 10.2 g/dl (13.5-17.5); LYMPH # 1.2 10^3/uL (1.5-5.0); LYMPH % 20.7 % (24.0-44.0); MEAN CORPUSCULAR HEMOGLOBIN 30.5 pg (27.0-33.0); MEAN CORPUSCULAR HGB CONC 30.6 g/dl (32.0-36.5); MEAN CORPUSCULAR VOLUME 99.7 fl (80.0-96.0); MONO # 0.7 10^3/uL (0.0-0.8); MONO % 12.4 % (2.0-8.0); NEUTROPHILS # 3.9 10^3/uL (1.5-8.5); NEUTROPHILS % 64.2 % (36.0-66.0); PLATELET COUNT, AUTOMATED 158 10^3/uL (150-450); RED BLOOD COUNT 3.34 10^6/uL (4.30-6.10)
[2022-09-14 05:35] LABS: CALCIUM LEVEL 8.8 MG/DL (8.3-10.6); CREATININE FOR GFR 1.75 MG/DL (0.70-1.30); GLOMERULAR FILTRATION RATE 39.4 (>35); POTASSIUM SERUM 3.7 MMOL/L (3.5-5.1)
[2022-09-14] MEDS: LEVOTHYROXINE 125MCG TABLET (0.125MG) PO SCH (06:39)
[2022-09-14] MEDS: TIOTROPIUM INHALER/CAPSULE (SPIRIVA) INH SCH (07:35)
[2022-09-14] MEDS: TAMSULOSIN 0.4 MG CAP PO SCH (08:59)
[2022-09-14] MEDS: GABAPENTIN 300 MG CAP PO SCH ×2 (08:59→20:46)
[2022-09-14] MEDS: MIDODRINE 5 MG TAB PO SCH ×3 (08:59→16:05)
[2022-09-14] MEDS: guaiFENesin ER 600 MG TAB PO SCH ×2 (08:59→20:45)
[2022-09-14] MEDS: APIXABAN 2.5 MG TAB (ELIQUIS) PO SCH ×2 (08:59→20:46)
[2022-09-14] MEDS: METOPROLOL SUCC *XL* 25MG TAB (TopROL *XL*) PO SCH (09:00)
[2022-09-14] MEDS: DIGOXIN 0.125 MG TAB PO SCH (09:00)
[2022-09-14] MEDS: FUROSEMIDE 40MG/4ML VIAL IV SCH (09:00)
[2022-09-14] MEDS: POTASSIUM CHLORIDE 10MEQ SR TABLET PO SCH (09:00)
[2022-09-14] MEDS ORDERED: FUROSEMIDE 40 MG TAB PO SCH (17:00)
[2022-09-14] MEDS: ROSUVASTATIN 10 MG TAB (CRESTOR) PO SCH (20:46)
[2022-09-14] MEDS: MULTIVITAMINS/MINERALS THERAP 1 TAB PO SCH (20:46)
[2022-09-14] MEDS: ACETAMINOPHEN 500 MG TAB PO SCH (20:46)
[2022-09-15] VITALS (7 sets, daily range): BP systolic 98–116; BP diastolic 48–71; TEMP 96.9–98.7; O2SAT 90–100
[2022-09-15 05:09] LABS: BASO # 0.1 10^3/uL (0.0-0.2); BASO % 0.7 % (0.0-1.0); EOS # 0.1 10^3/uL (0.0-0.5); EOS % 1.7 % (0.0-3.0); HEMATOCRIT 32.7 % (42.0-52.0); HEMOGLOBIN 9.9 g/dl (13.5-17.5); LYMPH # 1.6 10^3/uL (1.5-5.0); LYMPH % 21.1 % (24.0-44.0); MEAN CORPUSCULAR HEMOGLOBIN 30.7 pg (27.0-33.0); MEAN CORPUSCULAR HGB CONC 30.3 g/dl (32.0-36.5); MEAN CORPUSCULAR VOLUME 101.6 fl (80.0-96.0); MONO % 12.8 % (2.0-8.0); NEUTROPHILS # 4.9 10^3/uL (1.5-8.5); NEUTROPHILS % 63.3 % (36.0-66.0); PLATELET COUNT, AUTOMATED 179 10^3/uL (150-450); RED BLOOD COUNT 3.22 10^6/uL (4.30-6.10); WHITE BLOOD COUNT 7.7 10^3/uL (4.0-10.0)
[2022-09-15 05:38] LABS: CALCIUM LEVEL 8.8 MG/DL (8.3-10.6); CREATININE FOR GFR 1.62 MG/DL (0.70-1.30); POTASSIUM SERUM 3.6 MMOL/L (3.5-5.1)
[2022-09-15] MEDS: LEVOTHYROXINE 125MCG TABLET (0.125MG) PO SCH (06:28)
[2022-09-15] MEDS: TIOTROPIUM INHALER/CAPSULE (SPIRIVA) INH SCH (07:16)
[2022-09-15] MEDS: MIDODRINE 5 MG TAB PO SCH ×2 (08:40→13:28)
[2022-09-15] MEDS: TAMSULOSIN 0.4 MG CAP PO SCH (08:40)
[2022-09-15] MEDS: GABAPENTIN 300 MG CAP PO SCH (08:41)
[2022-09-15] MEDS: guaiFENesin ER 600 MG TAB PO SCH (08:41)
[2022-09-15] MEDS: DIGOXIN 0.125 MG TAB PO SCH (08:41)
[2022-09-15] MEDS: POTASSIUM CHLORIDE 10MEQ SR TABLET PO SCH (08:41)
[2022-09-15] MEDS: APIXABAN 2.5 MG TAB (ELIQUIS) PO SCH (08:41)
[2022-09-15] MEDS ORDERED: FUROSEMIDE 40 MG TAB PO SCH (09:00)
[2022-09-15] MEDS: METOPROLOL SUCC *XL* 25MG TAB (TopROL *XL*) PO SCH (09:00)
[2022-09-15] MEDS ORDERED: MIDO10TA PO (11:42)
[2022-09-15] MEDS ORDERED: GABA-282 PO (11:42)
[2022-09-15] MEDS ORDERED: AVOD0.5C PO (11:42)
[2022-09-15] MEDS ORDERED: TORS10TA3 PO (11:52)
== END 2022-09-15 15:15 | disposition home health service (06) | DRG 291 ==
LOC: M ED 20:22 → EDBD 20:22 → M ED INP 23:54 → ENRESERV 09-13 00:58 → M PCU 09-13 02:26
PROVIDERS: ADMIT Family Medicine; ATTEND Internal Medicine
DX: I13.0 Hypertensive heart and chronic kidney disease with heart failure and stage 1 through stage 4 chronic kidney disease, or unspecified chronic kidney disease (principal); I50.23 Acute on chronic systolic (congestive) heart failure; J84.9 Interstitial pulmonary disease, unspecified; J96.11 Chronic respiratory failure with hypoxia; J98.11 Atelectasis; J44.9 Chronic obstructive pulmonary disease, unspecified; I48.91 Unspecified atrial fibrillation; I25.10 Atherosclerotic heart disease of native coronary artery without angina pectoris; G62.9 Polyneuropathy, unspecified; N18.32 Chronic kidney disease, stage 3b; N40.0 Benign prostatic hyperplasia without lower urinary tract symptoms; R53.1 Weakness; I25.2 Old myocardial infarction; E03.9 Hypothyroidism, unspecified; I95.1 Orthostatic hypotension; Z66 Do not resuscitate; Z99.81 Dependence on supplemental oxygen; Z98.41 Cataract extraction status, right eye; Z98.42 Cataract extraction status, left eye; Z95.5 Presence of coronary angioplasty implant and graft; M19.90 Unspecified osteoarthritis, unspecified site; Z79.01 Long term (current) use of anticoagulants; Z79.899 Other long term (current) drug therapy; Z79.890 Hormone replacement therapy

== ENCOUNTER → 2022-10-08 | Outpatient (REF) | payer OTHER ==
[~2022-10-08] MED LIST changes: +AVOD0.5C PO; +FERR324T2 PO; -GABA-283 PO; +GABA-284 PO; +GUAI600T54 PO; +TORS10TA3 PO
== END ==
LOC: M LAB REF 15:28
PROVIDERS: ATTEND Internal Medicine Pulmonary Disease
DX: J44.9 Chronic obstructive pulmonary disease, unspecified (principal)

== ENCOUNTER → 2023-04-10 | Outpatient (CLI) | payer MEDICARE ==
[2023-04-10 17:41] LABS: CHOLESTEROL RISK RATIO 2.39 (<5); HDL CHOLESTEROL 52.7 MG/DL (>40); LDL CHOLESTEROL 53.3 MG/DL (<100); NON-HDL-C 73.3 MG/DL
[2023-04-10 17:43] LABS: THYROID STIMULATING HORMONE 2.17 uIU/ML (0.55-4.78)
[2023-04-10 17:44] LABS: FREE T4 1.01 NG/DL (0.89-1.76)
[2023-04-10 18:33] LABS: HEMOGLOBIN A1c 5.6 % (4.0-6.0)
== END ==
LOC: M PLALAB 15:41
PROVIDERS: ATTEND Nurse Practitioner Family
DX: E03.9 Hypothyroidism, unspecified (principal); E78.2 Mixed hyperlipidemia; I50.9 Heart failure, unspecified; Z79.899 Other long term (current) drug therapy

== ENCOUNTER 2023-08-30 11:09 | Inpatient (IN) | payer MEDICARE ==
[~2023-08-30] VITALS: Ht 167.6 cm; Wt 54.7 kg
[~2023-08-30 11:09] MED LIST changes: -ROSU40TA4 PO; +ROSU40TA63 PO
[2023-08-30] MEDS: LIDOCAINE 2% 5ML JELLY UROJET TOP ONE (12:16)
[2023-08-30 12:41] LABS: BASO % 0.2 % (0.0-1.0); EOS % 0.4 % (0.0-3.0); HEMATOCRIT 31.3 % (42.0-52.0); HEMOGLOBIN 9.8 g/dl (13.5-17.5); LYMPH # 0.6 10^3/uL (1.5-5.0); LYMPH % 7.1 % (24.0-44.0); MEAN CORPUSCULAR HEMOGLOBIN 31.4 pg (27.0-33.0); MEAN CORPUSCULAR HGB CONC 31.3 g/dl (32.0-36.5); MEAN CORPUSCULAR VOLUME 100.3 fl (80.0-96.0); MONO # 1.1 10^3/uL (0.0-0.8); MONO % 13.2 % (2.0-8.0); NEUTROPHILS # 6.4 10^3/uL (1.5-8.5); NEUTROPHILS % 78.6 % (36.0-66.0); PLATELET COUNT, AUTOMATED 198 10^3/uL (150-450); RED BLOOD COUNT 3.12 10^6/uL (4.30-6.10); WHITE BLOOD COUNT 8.1 10^3/uL (4.0-10.0)
[2023-08-30 12:55] LABS: INR 1.42; PARTIAL THROMBOPLASTIN TIME 37.6 SECONDS (24.8-34.2); PROTHROMBIN TIME 16.9 SECONDS (12.5-14.5)
[2023-08-30 12:58] LABS: LIPASE 81 U/L (12-53)
[2023-08-30 12:59] LABS: CK-MB VALUE MASS 7.2 NG/ML (<3.6)
[2023-08-30 13:00] LABS: AMYLASE 215 U/L (30-118)
[2023-08-30 13:01] LABS: ALKALINE PHOSPHATASE 154 U/L (46-116); ALT/SGPT 34 U/L (7.0-40); AST/SGOT 17 U/L (<34); BILIRUBIN,DIRECT < 0.1 MG/DL (<0.4); BILIRUBIN,TOTAL 0.2 MG/DL (0.3-1.2); BLOOD UREA NITROGEN > 150 MG/DL (9-23); CALCIUM LEVEL 8.9 MG/DL (8.3-10.6); CARBON DIOXIDE LEVEL 23 MMOL/L (20-31); CHLORIDE LEVEL 95 MMOL/L (98-107); CPK CREATINE PHOSPHOKINASE 53 U/L (46-171); CREATININE FOR GFR 5.98 MG/DL (0.70-1.30); GLOMERULAR FILTRATION RATE 9.5 (>35); GLUCOSE, FASTING 118 MG/DL (74-106); MB/CK RELATIVE INDEX 13.58 (< OR =4); POTASSIUM SERUM 5.8 MMOL/L (3.5-5.1); SODIUM LEVEL 132 MMOL/L (136-145); TOTAL PROTEIN 6.1 G/DL (5.7-8.2)
[2023-08-30] MEDS: NS 500 ML IV ONE ×2 (13:53→14:20)
[2023-08-30 14:13] LABS: CK-MB VALUE MASS 7.9 NG/ML (<3.6)
[2023-08-30 14:20] LABS: MB/CK RELATIVE INDEX 14.62 (< OR =4)
[2023-08-30 14:46] LABS: DIGOXIN LEVEL 2.3 NG/ML (0.8-2.0)
[2023-08-30] MEDS: SODIUM BICARBONATE 8.4% INJ 50ML SYRINGE IV ONE (15:10)
[2023-08-30] MEDS: HumuLIN R (REGULAR) INSULIN (NovoLIN R) **100U/ML** PER UNIT IV ONE (15:10)
[2023-08-30] MEDS: DEXTROSE 50% 50ML SYRINGE IV ONE (15:10)
[2023-08-30] MEDS: PATIROMER SORBITEX CALCIUM 8.4 GM POWDER PACKET (VELTASSA) PO ONE (15:10)
[2023-08-30] MEDS: ALBUTEROL SULFATE 2.5MG/0.5ML INH NEB SOLN INH ONE (15:26)
[2023-08-30] MEDS ORDERED: MOM 30ML SUSPENSION UDC PO PRN (16:05)
[2023-08-30 16:26] LABS: OSMOLALITY SERUM 336 MOSM/KG (280-301)
[2023-08-30] MEDS: NS 1,000 ML IV SCH (16:59)
[2023-08-30 17:50] LABS: MAGNESIUM LEVEL 2.5 MG/DL (1.8-2.4)
[2023-08-30] MEDS ORDERED: ALBUTEROL SULFATE 2.5MG/0.5ML INH NEB SOLN INH PRN (18:25)
[2023-08-30] MEDS: MIDODRINE 5 MG TAB PO SCH (18:47)
[2023-08-30] MEDS ORDERED: MM S100C PO (19:23)
[2023-08-30] MEDS ORDERED: FERR32TA PO (19:23)
[2023-08-30] MEDS ORDERED: FURO40TA2 PO (19:23)
[2023-08-30] MEDS ORDERED: GABA-282 PO (19:23)
[2023-08-30] MEDS ORDERED: FINA5TAB2 PO (19:23)
[2023-08-30] MEDS ORDERED: BREO1INH PO (19:23)
[2023-08-30] MEDS ORDERED: CALC600T86 PO (19:40)
[2023-08-30] MEDS ORDERED: SPIR-10 PO (19:40)
[2023-08-30] MEDS ORDERED: TORS20TA2 PO (19:40)
[2023-08-30] MEDS ORDERED: TAMS1CAP17 PO (19:40)
[2023-08-30] MEDS ORDERED: ANUS2.5C2 TOP (19:40)
[2023-08-30] MEDS ORDERED: GUAI20TA PO (19:40)
[2023-08-30] MEDS ORDERED: ADVA230A INH (19:40)
[2023-08-30] MEDS ORDERED: CALADRYL TOP (19:40)
[2023-08-30] MEDS ORDERED: SENN-188 PO (19:42)
[2023-08-30] MEDS ORDERED: MIRA3350 PO (19:42)
[2023-08-30] MEDS ORDERED: HOME MED LIST COMPLETE! XX SCH (19:45)
[2023-08-30 19:55] LABS: CALCIUM LEVEL 8.5 MG/DL (8.3-10.6); CREATININE FOR GFR 6.02 MG/DL (0.70-1.30); GLOMERULAR FILTRATION RATE 9.4 (>35)
[2023-08-30] MEDS: APIXABAN 2.5 MG TAB (ELIQUIS) PO SCH (20:56)
[2023-08-30] MEDS: TAMSULOSIN 0.4 MG CAP PO SCH (20:56)
[2023-08-30] MEDS: FINASTERIDE 5MG TAB PO SCH (20:56)
[2023-08-30] MEDS: ROSUVASTATIN 10 MG TAB (CRESTOR) PO SCH (20:58)
[2023-08-30] MEDS: SENNA 8.6 MG TAB (SENOKOT) PO SCH (21:00)
[2023-08-30] MEDS: DOCUSATE SODIUM 100MG CAPSULE PO SCH (21:00)
[2023-08-31] VITALS (9 sets, daily range): BP systolic 100–119; BP diastolic 51–62; TEMP 96.9–98; O2SAT 92–96
[2023-08-31 03:09] LABS: CREATININE,RANDOM URINE 45.3 MG/DL
[2023-08-31] MEDS: LEVOTHYROXINE 125MCG TABLET (0.125MG) PO SCH (06:12)
[2023-08-31 07:10] LABS: BASO % 0.2 % (0.0-1.0); EOS % 0.1 % (0.0-3.0); HEMATOCRIT 29.8 % (42.0-52.0); HEMOGLOBIN 9.4 g/dl (13.5-17.5); LYMPH # 0.4 10^3/uL (1.5-5.0); LYMPH % 3.8 % (24.0-44.0); MEAN CORPUSCULAR HEMOGLOBIN 31.4 pg (27.0-33.0); MEAN CORPUSCULAR HGB CONC 31.5 g/dl (32.0-36.5); MEAN CORPUSCULAR VOLUME 99.7 fl (80.0-96.0); MONO # 1.1 10^3/uL (0.0-0.8); MONO % 11.5 % (2.0-8.0); NEUTROPHILS # 8.2 10^3/uL (1.5-8.5); NEUTROPHILS % 83.7 % (36.0-66.0); PLATELET COUNT, AUTOMATED 181 10^3/uL (150-450); RED BLOOD COUNT 2.99 10^6/uL (4.30-6.10); WHITE BLOOD COUNT 9.8 10^3/uL (4.0-10.0)
[2023-08-31 07:36] LABS: DIGOXIN LEVEL 1.9 NG/ML (0.8-2.0)
[2023-08-31] MEDS: ADVAIR HFA 230/21MCG INHALER INH SCH (07:39)
[2023-08-31 07:54] LABS: ALBUMIN 2.7 G/DL (3.2-5.2); ALKALINE PHOSPHATASE 125 U/L (46-116); ALT/SGPT 34 U/L (7.0-40); AST/SGOT 18 U/L (<34); BILIRUBIN,TOTAL 0.2 MG/DL (0.3-1.2); BLOOD UREA NITROGEN 145 MG/DL (9-23); CALCIUM LEVEL 9.1 MG/DL (8.3-10.6); CARBON DIOXIDE LEVEL 26 MMOL/L (20-31); CHLORIDE LEVEL 96 MMOL/L (98-107); CREATININE FOR GFR 6.06 MG/DL (0.70-1.30); GLOMERULAR FILTRATION RATE 9.4 (>35); GLUCOSE, FASTING 88 MG/DL (74-106); MAGNESIUM LEVEL 2.2 MG/DL (1.8-2.4); POTASSIUM SERUM 4.8 MMOL/L (3.5-5.1); SODIUM LEVEL 134 MMOL/L (136-145); TOTAL PROTEIN 5.5 G/DL (5.7-8.2)
[2023-08-31] MEDS: METOPROLOL SUCC *XL* 25MG TAB (TopROL *XL*) PO SCH (08:21)
[2023-08-31] MEDS: MIDODRINE 2.5 MG TAB PO SCH (08:21)
[2023-08-31] MEDS: FERROUS GLUCONATE 324 MG TAB PO SCH (08:21)
[2023-08-31] MEDS ORDERED: VARIBAR PUDDING 40% w/v 230ML TUBE As Ordered ONE (11:29)
[2023-08-31] MEDS ORDERED: E-Z-PAQUE 96% w/w SUSP 176GM BTL As Ordered ONE (11:29)
[2023-08-31] MEDS ORDERED: VARIBAR NECTAR 40% w/v 240ML SUSP BTL As Ordered ONE (11:29)
[2023-08-31] MEDS ORDERED: BARIUM SULFATE 700 MG TABLET (E-Z-DISK) As Ordered ONE (11:30)
[2023-08-31] MEDS: FUROSEMIDE 100MG/10ML VIAL IV ONE (12:48)
[2023-08-31] MEDS: cefTRIAXone SOD 2 GM in D5W MINI-BAG PLUS 50 ML IV SCH (13:10)
[2023-08-31] MEDS: MIDODRINE 5 MG TAB PO ONE (14:38)
[2023-08-31] MEDS: MIDODRINE 5 MG TAB PO SCH (16:23)
[2023-08-31 16:45] LABS: HEPATITIS B SURFACE ANTIBODY NEGATIVE (POSITIVE)
[2023-08-31 16:56] LABS: HEPATITIS B SURFACE ANTIGEN NEGATIVE (NEGATIVE)
[2023-08-31 17:17] LABS: HEPATITIS C VIRUS ABY INDEX < 0.02 INDEX (<0.8)
[2023-08-31 17:18] LABS: HEPATITIS B CORE ANTIBODY IGM NEGATIVE (NEGATIVE)
[2023-08-31] MEDS: ACETAMINOPHEN TAB 650MG DOSE (2X325MG) PO PRN (20:40)
[2023-09-01] VITALS (8 sets, daily range): BP systolic 101–136; BP diastolic 56–60; TEMP 97.2–98.2; O2SAT 92–95
[2023-09-01] MEDS ORDERED: SODIUM CHLORIDE 0.9% 1000ML IV PRN (00:20)
[2023-09-01] MEDS ORDERED: HEPARIN 1,000UNITS/ML 10ML VIAL (FOR RADIOLOGY & DIALYSIS ONLY) IV PRN (00:20)
[2023-09-01 06:26] LABS: BASO % 0.3 % (0.0-1.0); EOS % 0.5 % (0.0-3.0); HEMOGLOBIN 9.4 g/dl (13.5-17.5); LYMPH # 0.5 10^3/uL (1.5-5.0); LYMPH % 5.9 % (24.0-44.0); MEAN CORPUSCULAR HEMOGLOBIN 31.8 pg (27.0-33.0); MEAN CORPUSCULAR HGB CONC 32.4 g/dl (32.0-36.5); MONO % 11.7 % (2.0-8.0); NEUTROPHILS # 7.1 10^3/uL (1.5-8.5); PLATELET COUNT, AUTOMATED 185 10^3/uL (150-450); RED BLOOD COUNT 2.96 10^6/uL (4.30-6.10); WHITE BLOOD COUNT 8.8 10^3/uL (4.0-10.0)
[2023-09-01 07:09] LABS: ALBUMIN 2.6 G/DL (3.2-5.2); BILIRUBIN,TOTAL 0.2 MG/DL (0.3-1.2); CALCIUM LEVEL 8.7 MG/DL (8.3-10.6); CREATININE FOR GFR 6.55 MG/DL (0.70-1.30); GLOMERULAR FILTRATION RATE 8.6 (>35); MAGNESIUM LEVEL 2.3 MG/DL (1.8-2.4); POTASSIUM SERUM 5.2 MMOL/L (3.5-5.1); TOTAL PROTEIN 5.3 G/DL (5.7-8.2)
[2023-09-01] MEDS ORDERED: PATIROMER SORBITEX CALCIUM 8.4 GM POWDER PACKET (VELTASSA) PO ONE (11:00)
[2023-09-01] MEDS: PATIROMER SORBITEX CALCIUM 8.4 GM POWDER PACKET (VELTASSA) PO ONE (11:00)
[2023-09-01] MEDS: PATIROMER SORBITEX CALCIUM 8.4 GM POWDER PACKET (VELTASSA) PO STA (11:10)
[2023-09-01] MEDS: CALCIUM GLUCONATE 1,000 MG in D5W MINI-BAG PLUS 100 ML IV STA (12:00)
[2023-09-01] MEDS ORDERED: fentaNYL 100 MCG/2 ML INJECTION As Ordered ONE (13:29)
[2023-09-01] MEDS ORDERED: LIDOCAINE 1% MDV 20ML VIAL As Ordered ONE (13:30)
[2023-09-01] MEDS ORDERED: HEPARIN 1,000UNITS/ML 10ML VIAL (FOR RADIOLOGY & DIALYSIS ONLY) As Ordered ONE (13:30)
[2023-09-01] MEDS ORDERED: MIDAZOLAM INJ 2MG/2ML VIAL As Ordered ONE (13:30)
[2023-09-01] MEDS: metroNIDAZOLE (FLAGYL) 500MG TABLET PO SCH (14:00)
[2023-09-01] MEDS: HEPARIN 1,000UNITS/ML 10ML VIAL (FOR RADIOLOGY & DIALYSIS ONLY) XX SCH (15:40)
[2023-09-01] MEDS ORDERED: CIPROFLOXACIN 500MG TABLET PO SCH ×2 (16:00→21:00)
[2023-09-02] VITALS (7 sets, daily range): BP systolic 88–120; BP diastolic 52–65; TEMP 97.3–98.4; O2SAT 94–97
[2023-09-02] MEDS ORDERED: HEPARIN 1,000UNITS/ML 10ML VIAL (FOR RADIOLOGY & DIALYSIS ONLY) XX SCH (05:25)
[2023-09-02] MEDS ORDERED: SODIUM CHLORIDE 0.9% 1000ML IV PRN (05:25)
[2023-09-02 05:37] LABS: BASO % 0.4 % (0.0-1.0); HEMOGLOBIN 9.7 g/dl (13.5-17.5); LYMPH # 0.5 10^3/uL (1.5-5.0); LYMPH % 6.3 % (24.0-44.0); MEAN CORPUSCULAR HGB CONC 31.3 g/dl (32.0-36.5); MONO % 11.5 % (2.0-8.0); NEUTROPHILS # 6.7 10^3/uL (1.5-8.5); NEUTROPHILS % 81.2 % (36.0-66.0); PLATELET COUNT, AUTOMATED 200 10^3/uL (150-450); RED BLOOD COUNT 3.13 10^6/uL (4.30-6.10); WHITE BLOOD COUNT 8.3 10^3/uL (4.0-10.0)
[2023-09-02 06:01] LABS: ALBUMIN 2.5 G/DL (3.2-5.2); BILIRUBIN,TOTAL 0.2 MG/DL (0.3-1.2); CALCIUM LEVEL 8.9 MG/DL (8.3-10.6); CREATININE FOR GFR 4.02 MG/DL (0.70-1.30); MAGNESIUM LEVEL 2.2 MG/DL (1.8-2.4); POTASSIUM SERUM 4.8 MMOL/L (3.5-5.1); TOTAL PROTEIN 5.2 G/DL (5.7-8.2)
[2023-09-02] MEDS ORDERED: GLUCAGON INJ 1MG VIAL SC PRN (07:10)
[2023-09-02] MEDS ORDERED: GLUCOSE 4 GM CHEW PO PRN (07:10)
[2023-09-02] MEDS ORDERED: DEXTROSE 50% 50ML SYRINGE IV PRN (07:10)
[2023-09-02] MEDS: MIDODRINE 5 MG TAB PO SCH (08:11)
[2023-09-02] MEDS: APIXABAN 2.5 MG TAB (ELIQUIS) PO SCH (08:12)
[2023-09-02] MEDS: HEPARIN 1,000UNITS/ML 10ML VIAL (FOR RADIOLOGY & DIALYSIS ONLY) IV PRN (08:57)
[2023-09-02] MEDS: DIGOXIN 0.0625MG PER 1/2TABLET PO SCH (13:03)
[2023-09-02] MEDS: CEFDINIR 300 MG CAP (OMNICEF) PO SCH (16:31)
[2023-09-02] MEDS: MAALOX 30 ML SUSP *UDC PO PRN (17:44)
[2023-09-02] MEDS: ONDANSETRON 4MG 2ML VIAL IV PRN (18:34)
[2023-09-03] VITALS: BP 105/55; TEMP 97.4; O2SAT 99
[2023-09-03 04:00] VITALS: BP 122/61; TEMP 97.5; O2SAT 97
[2023-09-03 05:59] LABS: BASO % 0.3 % (0.0-1.0); HEMATOCRIT 34.8 % (42.0-52.0); HEMOGLOBIN 10.7 g/dl (13.5-17.5); LYMPH # 0.4 10^3/uL (1.5-5.0); LYMPH % 4.3 % (24.0-44.0); MEAN CORPUSCULAR HEMOGLOBIN 31.5 pg (27.0-33.0); MEAN CORPUSCULAR HGB CONC 30.7 g/dl (32.0-36.5); MEAN CORPUSCULAR VOLUME 102.4 fl (80.0-96.0); MONO # 1.3 10^3/uL (0.0-0.8); MONO % 13.2 % (2.0-8.0); NEUTROPHILS # 7.8 10^3/uL (1.5-8.5); NEUTROPHILS % 81.6 % (36.0-66.0); PLATELET COUNT, AUTOMATED 221 10^3/uL (150-450); WHITE BLOOD COUNT 9.5 10^3/uL (4.0-10.0)
[2023-09-03 06:31] LABS: ALBUMIN 2.7 G/DL (3.2-5.2); BILIRUBIN,TOTAL 0.3 MG/DL (0.3-1.2); CALCIUM LEVEL 9.3 MG/DL (8.3-10.6); CREATININE FOR GFR 3.15 MG/DL (0.70-1.30); GLOMERULAR FILTRATION RATE 19.9 (>35); MAGNESIUM LEVEL 2.2 MG/DL (1.8-2.4); TOTAL PROTEIN 5.8 G/DL (5.7-8.2)
[2023-09-03 07:34] VITALS: BP_SYST 100; BP_SYST 112; BP_DIAS 56; BP_DIAS 60; TEMP 98.4; O2SAT 93
[2023-09-03 11:46] VITALS: BP 113/58; TEMP 98; O2SAT 91
[2023-09-03 16:26] VITALS: BP 92/54; TEMP 97.5; O2SAT 92
[2023-09-03 20:16] VITALS: BP 106/59; TEMP 97.3; O2SAT 96
[2023-09-04] VITALS: BP 103/57; TEMP 97.6; O2SAT 94
[2023-09-04] MEDS ORDERED: SODIUM CHLORIDE 0.9% 1000ML IV PRN (00:50)
[2023-09-04] MEDS ORDERED: HEPARIN 1,000UNITS/ML 10ML VIAL (FOR RADIOLOGY & DIALYSIS ONLY) IV PRN (00:50)
[2023-09-04 12:30] VITALS: BP 102/58; TEMP 97.4; O2SAT 99
[2023-09-04] MEDS: (RENVELA) SEVELAMER **CARBONate** 800 MG TAB PO SCH (12:30)
[2023-09-04 12:57] LABS: ALBUMIN 2.7 G/DL (3.2-5.2); CREATININE FOR GFR 4.57 MG/DL (0.70-1.30); MAGNESIUM LEVEL 2.5 MG/DL (1.8-2.4); PHOSPHORUS LEVEL 10.5 MG/DL (2.4-5.1); POTASSIUM SERUM 5.4 MMOL/L (3.5-5.1)
[2023-09-04] MEDS: HEPARIN 1,000UNITS/ML 10ML VIAL (FOR RADIOLOGY & DIALYSIS ONLY) XX SCH (13:56)
[2023-09-04] MEDS: ONDANSETRON 4MG 2ML VIAL IV PRN (15:03)
[2023-09-04 16:01] LABS: BASO % 0.2 % (0.0-1.0); HEMATOCRIT 34.5 % (42.0-52.0); HEMOGLOBIN 10.7 g/dl (13.5-17.5); LYMPH # 0.6 10^3/uL (1.5-5.0); LYMPH % 5.2 % (24.0-44.0); MEAN CORPUSCULAR HEMOGLOBIN 31.3 pg (27.0-33.0); MEAN CORPUSCULAR VOLUME 100.9 fl (80.0-96.0); MONO # 1.6 10^3/uL (0.0-0.8); MONO % 14.7 % (2.0-8.0); NEUTROPHILS # 8.6 10^3/uL (1.5-8.5); NEUTROPHILS % 79.2 % (36.0-66.0); PLATELET COUNT, AUTOMATED 216 10^3/uL (150-450); RED BLOOD COUNT 3.42 10^6/uL (4.30-6.10); WHITE BLOOD COUNT 10.9 10^3/uL (4.0-10.0)
[2023-09-04 16:37] VITALS: BP 100/55; TEMP 97.7; O2SAT 98
[2023-09-04 19:51] VITALS: BP 104/57; TEMP 97.7; O2SAT 95
[2023-09-05 00:10] VITALS: BP 101/58; TEMP 98.2; O2SAT 98
[2023-09-05 03:56] VITALS: BP 102/50; TEMP 98.8; O2SAT 97
[2023-09-05 07:55] VITALS: BP 98/58; TEMP 97.4; O2SAT 100
[2023-09-05 08:08] LABS: BASO % 0.2 % (0.0-1.0); HEMATOCRIT 34.2 % (42.0-52.0); HEMOGLOBIN 10.3 g/dl (13.5-17.5); LYMPH # 0.4 10^3/uL (1.5-5.0); LYMPH % 3.8 % (24.0-44.0); MEAN CORPUSCULAR HEMOGLOBIN 30.7 pg (27.0-33.0); MEAN CORPUSCULAR HGB CONC 30.1 g/dl (32.0-36.5); MEAN CORPUSCULAR VOLUME 102.1 fl (80.0-96.0); MONO # 1.1 10^3/uL (0.0-0.8); NEUTROPHILS # 7.9 10^3/uL (1.5-8.5); NEUTROPHILS % 83.1 % (36.0-66.0); PLATELET COUNT, AUTOMATED 198 10^3/uL (150-450); RED BLOOD COUNT 3.35 10^6/uL (4.30-6.10); WHITE BLOOD COUNT 9.5 10^3/uL (4.0-10.0)
[2023-09-05 08:09] LABS: HEMATOCRIT 34.2 % (42.0-52.0); HEMOGLOBIN 10.3 g/dl (13.5-17.5); MEAN CORPUSCULAR HEMOGLOBIN 31.1 pg (27.0-33.0); MEAN CORPUSCULAR HGB CONC 30.1 g/dl (32.0-36.5); MEAN CORPUSCULAR VOLUME 103.3 fl (80.0-96.0); PLATELET COUNT, AUTOMATED 205 10^3/uL (150-450); RED BLOOD COUNT 3.31 10^6/uL (4.30-6.10); WHITE BLOOD COUNT 9.8 10^3/uL (4.0-10.0)
[2023-09-05 08:35] LABS: CALCIUM LEVEL 8.7 MG/DL (8.3-10.6); CREATININE FOR GFR 2.82 MG/DL (0.70-1.30); GLOMERULAR FILTRATION RATE 22.6 (>35); POTASSIUM SERUM 4.4 MMOL/L (3.5-5.1)
[2023-09-05 08:36] LABS: ALBUMIN 2.7 G/DL (3.2-5.2); BILIRUBIN,TOTAL 0.3 MG/DL (0.3-1.2); CALCIUM LEVEL 8.9 MG/DL (8.3-10.6); CREATININE FOR GFR 2.83 MG/DL (0.70-1.30); GLOMERULAR FILTRATION RATE 22.5 (>35); MAGNESIUM LEVEL 2.3 MG/DL (1.8-2.4); POTASSIUM SERUM 4.4 MMOL/L (3.5-5.1); TOTAL PROTEIN 5.6 G/DL (5.7-8.2)
[2023-09-05] MEDS ORDERED: PILL CUTTER 1 EACH XX PRN (11:00)
[2023-09-05 12:08] VITALS: BP 105/59; TEMP 97.6; O2SAT 99
[2023-09-05 15:55] VITALS: BP 104/57; TEMP 97.4; O2SAT 99
[2023-09-05 20:00] VITALS: BP 96/51; TEMP 97.6; O2SAT 98
[2023-09-05] MEDS: ROSUVASTATIN 10 MG TAB (CRESTOR) PO SCH (21:38)
[2023-09-06] VITALS: BP 103/57; TEMP 97.6; O2SAT 99
[2023-09-06 03:51] VITALS: BP 89/50; TEMP 97.4; O2SAT 100
[2023-09-06 08:03] VITALS: BP 93/54; TEMP 97.3; O2SAT 100
[2023-09-06 08:12] LABS: ALBUMIN 2.5 G/DL (3.2-5.2); BILIRUBIN,TOTAL 0.3 MG/DL (0.3-1.2); CALCIUM LEVEL 8.7 MG/DL (8.3-10.6); CREATININE FOR GFR 4.04 MG/DL (0.70-1.30); MAGNESIUM LEVEL 2.5 MG/DL (1.8-2.4); POTASSIUM SERUM 4.5 MMOL/L (3.5-5.1); TOTAL PROTEIN 5.1 G/DL (5.7-8.2)
[2023-09-06 16:15] VITALS: BP 99/52; TEMP 98.8; O2SAT 96
[2023-09-06 23:24] VITALS: BP 100/52; TEMP 97.3; O2SAT 98
[2023-09-07 03:47] VITALS: BP 102/52; TEMP 97.2; O2SAT 98
[2023-09-07] MEDS ORDERED: HEPARIN 1,000UNITS/ML 10ML VIAL (FOR RADIOLOGY & DIALYSIS ONLY) XX SCH (06:00)
[2023-09-07] MEDS ORDERED: SODIUM CHLORIDE 0.9% 1000ML IV PRN (06:00)
[2023-09-07] MEDS ORDERED: LIDOCAINE 1% SDV 5ML VIAL SC PRN (06:00)
[2023-09-07 06:05] LABS: BASO % 0.1 % (0.0-1.0); EOS # 0.1 10^3/uL (0.0-0.5); EOS % 0.8 % (0.0-3.0); HEMATOCRIT 32.4 % (42.0-52.0); HEMOGLOBIN 10.1 g/dl (13.5-17.5); LYMPH # 0.7 10^3/uL (1.5-5.0); LYMPH % 5.5 % (24.0-44.0); MEAN CORPUSCULAR HEMOGLOBIN 31.3 pg (27.0-33.0); MEAN CORPUSCULAR HGB CONC 31.2 g/dl (32.0-36.5); MEAN CORPUSCULAR VOLUME 100.3 fl (80.0-96.0); MONO # 1.7 10^3/uL (0.0-0.8); MONO % 14.1 % (2.0-8.0); NEUTROPHILS # 9.4 10^3/uL (1.5-8.5); PLATELET COUNT, AUTOMATED 190 10^3/uL (150-450); RED BLOOD COUNT 3.23 10^6/uL (4.30-6.10); WHITE BLOOD COUNT 11.9 10^3/uL (4.0-10.0)
[2023-09-07 06:35] LABS: ALBUMIN 2.5 G/DL (3.2-5.2); BILIRUBIN,TOTAL 0.3 MG/DL (0.3-1.2); CALCIUM LEVEL 8.5 MG/DL (8.3-10.6); CREATININE FOR GFR 5.33 MG/DL (0.70-1.30); GLOMERULAR FILTRATION RATE 10.9 (>35); PHOSPHORUS LEVEL 5.6 MG/DL (2.4-5.1); POTASSIUM SERUM 5.2 MMOL/L (3.5-5.1); TOTAL PROTEIN 5.1 G/DL (5.7-8.2)
[2023-09-07 07:42] VITALS: BP 100/58; TEMP 98.1; O2SAT 100
[2023-09-07 09:40] LABS: DIGOXIN LEVEL 2.3 NG/ML (0.8-2.0)
[2023-09-07] MEDS: HEPARIN 1,000UNITS/ML 10ML VIAL (FOR RADIOLOGY & DIALYSIS ONLY) IV PRN (11:24)
[2023-09-07 15:47] VITALS: BP 101/57; TEMP 97.8; O2SAT 99
[2023-09-07 19:43] VITALS: BP 90/52; TEMP 97.1; O2SAT 98
[2023-09-07 23:35] VITALS: BP 70/40
[2023-09-07] MEDS: MIDODRINE 5 MG TAB PO ONE (23:46)
[2023-09-08 00:34] VITALS: BP 90/60
[2023-09-08 03:55] VITALS: BP 100/60; TEMP 96.9; O2SAT 99
[2023-09-08 05:22] LABS: BASO % 0.1 % (0.0-1.0); EOS # 0.1 10^3/uL (0.0-0.5); EOS % 1.1 % (0.0-3.0); HEMATOCRIT 30.6 % (42.0-52.0); HEMOGLOBIN 9.4 g/dl (13.5-17.5); LYMPH # 0.8 10^3/uL (1.5-5.0); MEAN CORPUSCULAR HEMOGLOBIN 31.5 pg (27.0-33.0); MEAN CORPUSCULAR HGB CONC 30.7 g/dl (32.0-36.5); MEAN CORPUSCULAR VOLUME 102.7 fl (80.0-96.0); MONO # 1.3 10^3/uL (0.0-0.8); MONO % 12.8 % (2.0-8.0); NEUTROPHILS # 7.6 10^3/uL (1.5-8.5); NEUTROPHILS % 77.5 % (36.0-66.0); PLATELET COUNT, AUTOMATED 178 10^3/uL (150-450); RED BLOOD COUNT 2.98 10^6/uL (4.30-6.10); WHITE BLOOD COUNT 9.8 10^3/uL (4.0-10.0)
[2023-09-08 05:44] LABS: ALBUMIN 2.3 G/DL (3.2-5.2); BILIRUBIN,TOTAL 0.4 MG/DL (0.3-1.2); CALCIUM LEVEL 7.8 MG/DL (8.3-10.6); CREATININE FOR GFR 3.11 MG/DL (0.70-1.30); GLOMERULAR FILTRATION RATE 20.2 (>35); POTASSIUM SERUM 4.1 MMOL/L (3.5-5.1); TOTAL PROTEIN 4.6 G/DL (5.7-8.2)
[2023-09-08 07:26] VITALS: BP 102/55; TEMP 98.5; O2SAT 97
[2023-09-08 13:03] VITALS: BP 92/60; TEMP 98.9; O2SAT 97
[2023-09-08 15:41] VITALS: BP 108/58; TEMP 97.7; O2SAT 100
[2023-09-08 19:46] VITALS: BP 100/54; TEMP 97.5; O2SAT 97
[2023-09-09 03:25] VITALS: BP 90/54; TEMP 97.7; O2SAT 98
[2023-09-09] MEDS ORDERED: HEPARIN 1,000UNITS/ML 10ML VIAL (FOR RADIOLOGY & DIALYSIS ONLY) XX SCH (06:00)
[2023-09-09] MEDS ORDERED: HEPARIN 1,000UNITS/ML 10ML VIAL (FOR RADIOLOGY & DIALYSIS ONLY) IV PRN (06:00)
[2023-09-09] MEDS ORDERED: SODIUM CHLORIDE 0.9% 1000ML IV PRN (06:00)
[2023-09-09] MEDS ORDERED: LIDOCAINE 1% SDV 5ML VIAL SC PRN (06:00)
[2023-09-09 06:09] LABS: HEMATOCRIT 32.5 % (42.0-52.0); HEMOGLOBIN 9.9 g/dl (13.5-17.5); MEAN CORPUSCULAR HEMOGLOBIN 31.2 pg (27.0-33.0); MEAN CORPUSCULAR HGB CONC 30.5 g/dl (32.0-36.5); MEAN CORPUSCULAR VOLUME 102.5 fl (80.0-96.0); PLATELET COUNT, AUTOMATED 209 10^3/uL (150-450); RED BLOOD COUNT 3.17 10^6/uL (4.30-6.10)
[2023-09-09 06:43] LABS: ALBUMIN 2.4 G/DL (3.2-5.2); BILIRUBIN,TOTAL 0.4 MG/DL (0.3-1.2); CREATININE FOR GFR 4.3 MG/DL (0.70-1.30); GLOMERULAR FILTRATION RATE 13.9 (>35); POTASSIUM SERUM 4.8 MMOL/L (3.5-5.1); TOTAL PROTEIN 4.9 G/DL (5.7-8.2)
[2023-09-09 07:38] VITALS: BP 107/57; TEMP 97.9; O2SAT 98
[2023-09-09 12:55] VITALS: BP 108/63
[2023-09-09] MEDS ORDERED: MORPHINE 2 MG/ML 1ML VIAL IV PRN (15:30)
[2023-09-09] MEDS ORDERED: ATROPINE SULFATE 1% OPHTH SOLN 2ML BTL SL PRN (15:30)
[2023-09-09] MEDS ORDERED: SCOPOLAMINE 1MG TRANSDERMAL PATCH TOP PRN (15:30)
[2023-09-09] MEDS ORDERED: ONDANSETRON 4MG ORAL DISINTEGRATING TAB PO PRN (15:30)
[2023-09-10] MEDS ORDERED: TRAN1DIS4 TOP (09:39)
[2023-09-10] MEDS ORDERED: ACET1TAB55 PO (09:39)
[2023-09-10] MEDS ORDERED: HYOS125TA PO (09:39)
[2023-09-10] MEDS ORDERED: ATIV1TAB10 PO (09:39)
[2023-09-10] MEDS ORDERED: MORP1SOL5 PO (09:39)
[2023-09-10] MEDS ORDERED: ONDA-282 PO (09:39)
[2023-09-10] MEDS: LORazepam 2 MG/ML 1ML VIAL IV PRN (10:59)
== END 2023-09-10 13:14 | DRG 674 ==
LOC: M ED 11:09 → EDBD 11:09 → M ED INP 16:01 → M PCU 08-31 02:26
PROVIDERS: ADMIT Internal Medicine; ATTEND Internal Medicine
PROC: B246ZZZ Ultrasonography of Right and Left Heart (ICD-10-PCS; 2023-08-30)
PROC: 02H633Z Insertion of Infusion Device into Right Atrium, Percutaneous Approach (ICD-10-PCS; 2023-09-01)
PROC: 5A1D70Z Performance of Urinary Filtration, Intermittent, Less than 6 Hours Per Day (ICD-10-PCS; 2023-09-01)
PROC: 0JH63XZ Insertion of Tunneled Vascular Access Device into Chest Subcutaneous Tissue and Fascia, Percutaneous Approach (ICD-10-PCS; principal; 2023-09-01 16:00)
PROC: 0JPTXXZ Removal of Tunneled Vascular Access Device from Trunk Subcutaneous Tissue and Fascia, External Approach (ICD-10-PCS; 2023-09-10)
DX: N17.9 Acute kidney failure, unspecified (principal); I50.22 Chronic systolic (congestive) heart failure; I13.0 Hypertensive heart and chronic kidney disease with heart failure and stage 1 through stage 4 chronic kidney disease, or unspecified chronic kidney disease; J84.9 Interstitial pulmonary disease, unspecified; E87.1 Hypo-osmolality and hyponatremia; K81.0 Acute cholecystitis; I48.11 Longstanding persistent atrial fibrillation; N18.30 Chronic kidney disease, stage 3 unspecified; I95.9 Hypotension, unspecified; R09.02 Hypoxemia; J44.9 Chronic obstructive pulmonary disease, unspecified; Z51.5 Encounter for palliative care; Z66 Do not resuscitate; E87.5 Hyperkalemia; I25.10 Atherosclerotic heart disease of native coronary artery without angina pectoris; D64.9 Anemia, unspecified; R13.12 Dysphagia, oropharyngeal phase; E78.5 Hyperlipidemia, unspecified; N40.0 Benign prostatic hyperplasia without lower urinary tract symptoms; H91.93 Unspecified hearing loss, bilateral; R74.01 Elevation of levels of liver transaminase levels; I25.5 Ischemic cardiomyopathy; R62.7 Adult failure to thrive; Z99.81 Dependence on supplemental oxygen; Z95.5 Presence of coronary angioplasty implant and graft; Z79.01 Long term (current) use of anticoagulants; Z79.890 Hormone replacement therapy; Z79.899 Other long term (current) drug therapy